=== PATIENT | female | born 1975 | race Caucasian/White ===

== ENCOUNTER 2018-10-13 11:40 | Observation (INO) ==
--- NOTE | 2018-10-13 11:52 | Emergency Department Note ---
ED Disposition Clinical Impression: Chest pain syndrome Disposition: Admitted as Observation Condition on Discharge: Fair Referrals: Provider,Referral, [Primary Care Provider] - Time of Disposition: 17:19 - Critical Care Critical Care Time: No Attestation: On , the high probability of a clinically significant, sudden or life threatening deterioration of the following system(s) required my full and direct attention, intervention and personal management. The time I documented below is in addition to time spent performing reported procedures but includes the following listed in this critical care notation. Medical Decision Making - Medical Records Medical records reviewed: Yes: I reviewed the patient's medical records. - Fredi Inquiry Pt receiving controlled substance: No Fredi was queried for this patient: No Vital Signs: 10/13/18 11:40 10/13/18 12:42 10/13/18 13:20 Temperature 97.9 F Temperature Source Oral Pulse Rate 80 Pulse Rate [Left Radial] 90 82 Respiratory Rate 15 16 Blood Pressure 169/74 H Blood Pressure [Right Arm] 169/91 H 157/98 H Blood Pressure Mean [Right Arm] 117 117 Blood Pressure Source [Right Arm] Automatic Cuff Automatic Cuff Blood Pressure Position [Right Arm] Sitting Sitting 02 Sat by Pulse Oximetry 97 98 Oxygen Delivery Method Room Air 10/13/18 13:23 10/13/18 14:00 10/13/18 14:30 Temperature Temperature Source Pulse Rate Pulse Rate [Left Radial] 96 H 93 H 87 Respiratory Rate 15 Blood Pressure Blood Pressure [Right Arm] 182/92 H 160/95 H 156/83 H Blood Pressure Mean [Right Arm] 122 116 107 Blood Pressure Source [Right Arm] Blood Pressure Position [Right Arm] Sitting 02 Sat by Pulse Oximetry 98 96 Oxygen Delivery Method Room Air 10/13/18 15:00 10/13/18 15:30 10/13/18 16:00 Temperature Temperature Source Pulse Rate Pulse Rate [Left Radial] 97 H 95 H 94 H Respiratory Rate Blood Pressure Blood Pressure [Right Arm] 144/76 H 127/91 H 131/99 H Blood Pressure Mean [Right Arm] 98 103 109 Blood Pressure Source [Right Arm] Blood Pressure Position [Right Arm] 02 Sat by Pulse Oximetry 96 95 96 Oxygen Delivery Method Room Air 10/13/18 16:30 Temperature Temperature Source Pulse Rate Pulse Rate [Left Radial] 94 H Respiratory Rate Blood Pressure Blood Pressure [Right Arm] 129/84 Blood Pressure Mean [Right Arm] 99 Blood Pressure Source [Right Arm] Blood Pressure Position [Right Arm] 02 Sat by Pulse Oximetry Oxygen Delivery Method - Lab Data Lab results reviewed: Yes: I reviewed the patient's lab results. Lab Results 10/13/18 12:12: WBC 6.5, RBC 4.89, Hgb 13.1, Hct 41.2, MCV 84.4, MCH 26.8 L, MCHC 31.8, RDW 14.7, Plt Count 231, MPV 7.6, Neut % (Auto) 72.0, Lymph % (Auto) 21.2, [place] % (Auto) 4.7, Eos % (Auto) 1.8, Baso % (Auto) 0.4, Neut # (Auto) 4.7, Lymph # (Auto) 1.4, [place] # (Auto) 0.3, Eos # (Auto) 0.1, Baso # (Auto) 0.0 10/13/18 12:12: D-Dimer < 100 10/13/18 12:12: Sodium 141, Potassium 4.1, Chloride 104, Carbon Dioxide 29, A nion Gap 12.1, BUN 10, Creatinine 0.89, Estimated Creat Clear 67, Estimated GFR 69, Est GFR ( Amer) 83, Glucose 124 H, Calcium 9.1, Total Bilirubin 0.4, AST 17, ALT 33, Alkaline Phosphatase 97, Troponin I < 0.02, Total Protein 7.8, Albumin 3.4, Globulin 4.4 H, Albumin/Globulin Ratio 0.8 L 10/13/18 12:12: B-Natriuretic Peptide 16 10/13/18 12:12: ESR 42 H 10/13/18 12:12: C-Reactive Protein 2.2 H 10/13/18 14:55: Troponin I < 0.02 Result diagrams: 10/13/18 12:12 10/13/18 12:12 Orders (Tests/Meds): ED MEDICATIONS Generic Name Dose Route Start Last Admin Trade Name Freq PRN Reason Stop Dose Admin Carvedilol 12.5 mg 10/13/18 21:00 Coreg 12.5mg Tablet PO 11/12/18 20:59 BID VIVIEN Nitroglycerin/Dextrose 250 mls @ 3 mls/hr 10/13/18 12:00 10/13/18 15:55 Nitroglycerin 50mg/250ml D5w IV 11/12/18 11:59 20 mcg/min .Q24H VIVIEN 6 mls/hr Titration Protocol 10 MCG/MIN Discontinued Medications Generic Name Dose Route Start Last Admin Trade Name Malcom PRN Reason Stop Dose Admin Hydralazine HCl 10 mg 10/13/18 15:49 10/13/18 16:07 Apresoline 20mg/Ml 1ml Vial IV 10/13/18 15:50 Not Given ONCE ONE Metoprolol Tartrate 5 mg 10/13/18 15:55 10/13/18 16:22 Metoprolol Tartrate 5mg/5ml Vial IV 10/13/18 15:56 Not Given ONCE ONE Morphine Sulfate 2 mg 10/13/18 12:44 10/13/18 12:56 Morphine 2mg/Ml Syringe IV 10/13/18 12:45 2 mg ONCE ONE Administration Morphine Sulfate 4 mg 10/13/18 14:00 10/13/18 14:38 Morphine 4mg/Ml Syringe IV 10/13/18 14:01 4 mg ONCE ONE Administration Morphine Sulfate 4 mg 10/13/18 15:55 10/13/18 16:13 Morphine 4mg/Ml Syringe IV 10/13/18 15:56 4 mg ONCE ONE Administration Promethazine HCl 12.5 mg 10/13/18 14:36 10/13/18 14:38 Phenergan 25mg/Ml 1ml Vial IV 10/13/18 14:37 12.5 mg ONCE ONE Administration Sodium Chloride 25 ml 10/13/18 14:36 10/13/18 14:38 Sod Chlor 0.9% 25ml Bag IV 10/13/18 14:37 25 ml ONCE ONE Administration ORDERS Category Date Time Status EKG Request [ECG Request by /Ezequiel] Stat Y 10/13/18 13:32 Stop Req EKG Request [ECG Request by /Ezequiel] Stat Y 10/13/18 14:00 Ordered - Physician Consults Physician Consulted: dodie Time: 17:17 Reason -: Pt condition, Cardiology Eval/Care Comment/Response: will consult, tonight rec blood pressure reduction - MICHELLE Score for Non-Stemi Age of Patient: 40-49 years old Heart Rate: 90-109 bpm Systolic Blood Pressure: 120-139 mmhg Serum Creatinine: 0.80-1.19 mg/dl CHF [place] Class: I-No CHF Other Risk Factors: None Non-Stemi Risk Score: 81 General Adult HPI - General Stated complaint: chest pain Time Seen by Provider: 10/13/18 11:49 Source of Information: Patient Limitations: No Limitations - History of Present Illness HPI narrative: nausea last night, onset of SSCP radiating to left shoulder today.VTE was ruled out by CT at [facility]... No left heart cath but hospitalized x 4 days within past week there. No stents - Related Data Home Medications Medication Instructions Recorded Confirmed Canagliflozin [Invokana] 1 dose * DIRECTED 10/13/18 10/13/18 Carvedilol [Carvedilol 12.5mg Tab] 1 tab PO BID 10/13/18 10/13/18 Furosemide [Furosemide 40MG tAB] 1 tab PO DIRECTED 10/13/18 10/13/18 Omeprazole [Omeprazole 40mg 1 tab PO DAILY 10/13/18 10/13/18 Capsule] Sertraline HCl [Zoloft 50mg tablet] 1 dose PO DAILY 10/13/18 10/13/18 Spironolactone 1 tab PO DAILY 10/13/18 10/13/18 Spironolactone 1 tab PO DAILY 10/13/18 10/13/18 Allergies Allergy/AdvReac Type Severity Reaction Status Date / Time ketorolac [From TORADOL] Allergy Unknown UNKNOWN Verified 10/13/18 12:20 metoclopramide [From REGLAN] Allergy Unknown UNKNOWN Verified 10/13/18 12:20 Sulfa (Sulfonamide Allergy Unknown REGLAN Verified 10/13/18 12:20 Antibiotics) [SULFA (SULFONAMIDE ANTIBIOTICS)] tramadol [TRAMADOL] Allergy Unknown UNKNOWN Verified 10/13/18 12:20 [facility] History - Hepatitis A Screen Attestation statement:: This patient has been screened for Hepatitis A risk factors. I have reviewed the patient's past medical history: Yes ROS Obtained: Yes All systems reviewed & no additional complaints - Constitutional Constitutional: Denies chills, Denies fever(s) - Cardiovascular Cardiovascular: Reports chest pain, Reports chest pain at rest, Reports dyspnea - Respiratory Respiratory: Yes dyspnea, Yes dyspnea on exertion - Gastrointestinal Gastrointestingal: Reports: system reviewed and no additional complaints, except as docu. Denies: abdominal pain - Musculoskeletal Musculoskeletal: Denies joint swelling, Denies limited range of motion - Integumentary/Breasts Skin/Breast: Denies rash, Denies skin pain - Neurologic Neurologic: Denies dizziness, Denies tremor(s) - Hematologic/Lymphatic Henatologic/Lymphatic: Denies easy bleeding, Denies easy bruising Physical Exam - General General appearance: alert, in no apparent distress - Head Head exam: atraumatic, normocephalic, normal inspection - Eye Eye exam: Present: normal appearance, PERRL, EOMI - ENT ENT exam: Present: normal exam, normal oropharynx, mucous membranes moist, TM's normal bilaterally, normal external ear exam - Neck Neck exam: Present: normal inspection, full ROM, trachea midline. Absent: meningismus, lymphadenopathy - Chest Chest inspection: Present: normal inspection, symmetric chest wall rise. Absent: tenderness - Respiratory Respiratory exam: Present: normal lung sounds bilaterally. Absent: respiratory distress - Cardiovascular Cardiovascular exam: Present: regular rate - Abdominal Exam Abdominal exam: Present: soft, normal bowel sounds. Absent: distention, tenderness, guarding - Extremities Exam Extremities exam: Present: normal inspection, full ROM, normal capillary refill. Absent: calf tenderness - Neurological Exam Neurological exam: Present: alert, oriented X3 - Psychiatric Psychiatric exam: Present: normal affect, normal mood - Skin Skin exam: Present: warm, dry, intact, normal color
[2018-10-13 12:22] LABS: Basophils % 0.4 % (0.1-2.0); Eosinophils # 0.1 K/mm3 (0.0-0.4); Eosinophils % 1.8 % (0.1-12.0); Hematocrit 41.2 % (37.0-47.0); Hemoglobin 13.1 g/dL (12.2-16.2); Lymphocytes # 1.4 K/mm3 (0.7-4.5); Lymphocytes % 21.2 % (10-50); Mean Corpuscular HGB Conc 31.8 g/dL (31.8-35.4); Mean Corpuscular Volume 84.4 fl (81-99); Mean Platelet Volume 7.6 fl (7.4-10.4); Monocytes # 0.3 K/mm3 (0.1-1.0); Monocytes % 4.7 % (1.7-9.3); Neutrophils # 4.7 K/mm3 (1.8-7.8); Platelet Count 231 K/mm3 (142-424); Red Blood Count 4.89 M/mm3 (4.20-5.40); Red Cell Distribution Width 14.7 % (11.5-17.5); White Blood Count 6.5 K/mm3 (4.8-10.8)
[2018-10-13 12:34] LABS: Alanine Aminotransferase 33 U/L (12-78); Albumin Level 3.4 gm/dL (3.4-5.0); Albumin/Globulin Ratio 0.8 (1.1-1.8); Alkaline Phosphatase 97 U/L (46-116); Anion Gap 12.1 mEq/L (5-15); Aspartate Amino Transferase 17 U/L (15-37); Bilirubin,Total 0.4 mg/dL (0.2-1.0); Blood Urea Nitrogen 10 mg/dL (7-18); Calcium 9.1 mg/dL (8.5-10.1); Carbon Dioxide 29 mmol/L (21.0-32.0); Chloride 104 mmol/L (98-107); Globulin 4.4 gm/dl (1.3-3.2); Glucose 124 mg/dL (74-106); Sodium 141 mmol/L (136-145); Total Protein,Serum 7.8 gm/dL (6.4-8.2)
--- NOTE | 2018-10-13 20:22 | History & Physical Report ---
*Admission Date: 10/13/18 *Chief complaint: chest pain *History of present illness: this pt presented to the ed with chest pain usea last night, onset of SSCP radiating to left shoulder today.VTE was ruled out by CT at [facility]... No left heart cath but hospitalized x 4 days within past week there. No stents pt was admitted for eval [facility] History I have reviewed the patient's past medical history: Yes Medical History: Reports:: Diabetes Mellitus Type 2, Hyperlipidemia, Hypertension Denies:: Cancer, Diabetes Mellitus Type 1, MRSA *Have you ever received a pneumonia vaccine?: Yes *Have you received a flu vaccine this season?: No Other Medical History: Reports: Liver Disease (pancreatitis) Other Surgeries: Yes: Cardiac Catheterization, Cholecystectomy, Colonoscopy, EGD, Hernia Repair (umbilical) Amputation: No Fractures: No - *Social History Educational Level: Attended High School Smoking Status: Former smoker Tobacco Type: cigarettes # Packs/Day (cigarettes): 1 Smoking End Date: 1995 Alcohol Intake: current Alcohol Intake Frequency:: holidays/special occasions only *Occupational Status:: disabled Housing: apartment Household Members: spouse *Travel in the last 8 weeks: None - Psychiatric History Expresses thoughts of harming self/others: None Suicide Plan Description: No Plan Family Hx:: Cancer, Coronary Artery Disease, Diabetes, Heart Attack, Hyperlipidemia, Hypertension Review of Systems - Review of Systems Review of systems:: pertinent systems reviewed and negative unless documented below - Constitutional Denies fever(s), Denies headache(s) - Eyes Denies change in vision - ENT Denies sore throat - *Cardiovascular Reports chest pain at rest, Reports chest pain with activity - *Respiratory Denies cough - *Gastrointestinal Denies abdominal pain - *Genitourinary Denies abnormal vaginal bleeding - *Musculoskeletal Denies joint pain - Integumentary/Breasts Denies rash - *Neurologic Denies dizziness, Denies tremor(s) - Psychiatric Denies anxiety Meds Home Medications Medication Instructions Recorded Confirmed Type Atorvastatin Calcium [Atorvastatin 40 mg PO HS 10/13/18 10/13/18 History 40mg Tab] Canagliflozin [Invokana] 100 mg PO DAILY 10/13/18 10/13/18 History Carvedilol [Carvedilol 12.5mg Tab] 12.5 mg PO BID 10/13/18 10/14/18 History Clopidogrel Bisulfate [Plavix 75mg 75 mg PO DAILY 10/13/18 10/13/18 History Tab] Furosemide [Furosemide 40MG tAB] 40 mg PO DAILY 10/13/18 10/14/18 History Gabapentin 800 mg PO QID 10/13/18 10/13/18 History Hydrocodone/Acetaminophen 1 each PO TID 10/13/18 10/13/18 History [Hydrocodone-Acetamin 5-325 mg] Isosorbide Mononitrate [Imdur 30mg 30 mg PO DAILY 10/13/18 10/13/18 History ER tablet] Losartan Potassium 100 mg PO DAILY 10/13/18 10/13/18 History Omeprazole [Omeprazole 40mg 40 mg PO BID 10/13/18 10/13/18 History Capsule] Sertraline HCl [Zoloft 50mg tablet] 50 mg PO DAILY 10/13/18 10/14/18 History Spironolactone 25 mg PO DAILY 10/13/18 10/13/18 History Trazodone HCl 150 mg PO HS 10/13/18 10/13/18 History clonazePAM [Clonazepam] 0.5 mg PO BID 10/13/18 10/13/18 History Allergies Allergy/AdvReac Type Severity Reaction Status Date / Time ketorolac [From TORADOL] Allergy Unknown UNKNOWN Verified 10/13/18 12:20 metoclopramide [From REGLAN] Allergy Unknown UNKNOWN Verified 10/13/18 12:20 Sulfa (Sulfonamide Allergy Unknown REGLAN Verified 10/13/18 12:20 Antibiotics) [SULFA (SULFONAMIDE ANTIBIOTICS)] tramadol [TRAMADOL] Allergy Unknown UNKNOWN Verified 10/13/18 12:20 Exam Vital signs and Labs for Last 24 Hours: Temp Pulse Resp BP Pulse Ox 97.9 F 85 22 165/91 H 96 10/13/18 18:26 10/13/18 18:30 10/13/18 18:26 10/13/18 18:26 10/13/18 18:26 Laboratory Results - last 24 hr 10/13/18 12:12: WBC 6.5, RBC 4.89, Hgb 13.1, Hct 41.2, MCV 84.4, MCH 26.8 L, MCHC 31.8, RDW 14.7, Plt Count 231, MPV 7.6, Neut % (Auto) 72.0, Lymph % (Auto) 21.2, [place] % (Auto) 4.7, Eos % (Auto) 1.8, Baso % (Auto) 0.4, Neut # (Auto) 4.7, Lymph # (Auto) 1.4, [place] # (Auto) 0.3, Eos # (Auto) 0.1, Baso # (Auto) 0.0 10/13/18 12:12: D-Dimer < 100 10/13/18 12:12: Sodium 141, Potassium 4.1, Chloride 104, Carbon Dioxide 29, Anion Gap 12.1, BUN 10, Creatinine 0.89, Estimated Creat Clear 67, Estimated GFR 69, Est GFR ( Amer) 83, Glucose 124 H, Calcium 9.1, Total Bilirubin 0.4, AST 17, ALT 33, Alkaline Phosphatase 97, Troponin I < 0.02, Total Protein 7.8, Albumin 3.4, Globulin 4.4 H, Albumin/Globulin Ratio 0.8 L 10/13/18 12:12: B-Natriuretic Peptide 16 10/13/18 12:12: ESR 42 H 10/13/18 12:12: C-Reactive Protein 2.2 H 10/13/18 14:55: Troponin I < 0.02 I & O for Last 24 hours: Intake & Output 10/11/18 10/12/18 10/13/18 10/14/18 11:59 11:59 11:59 11:59 Intake Total Balance Weight 255 lb 328 lb 12.8 oz - Constitutional no acute distress, obese - *Routine HEENT Exam Head: Present: normocephalic Eye: Present: EOMI, PERRL. Absent: conjunctival icterus ENT: Present: mucous membranes dry - *Routine Neck Exam Absent: JVD - *Routine Respiratory Exam Present: decreased breath sounds - *Routine Cardiovascular Exam Present: RRR. Absent: murmur - *Routine Abdominal Exam Present: soft - *Routine Extremities Exam Absent: calf tenderness - *Routine Skin Exam Present: intact - *Routine Neurological Exam Present: alert, oriented X3, CN II-XII intact - Routine Psychiatric Exam Present: normal affect Assessment and Plan (1) Chest pain Current visit: Yes Status: Acute Qualifiers: Chest pain type: precordial pain Qualified Code(s): R07.2 - Precordial pain Category: Medical Code(s): R07.9 - Chest pain, unspecified (2) Obesity Current visit: Yes Status: Acute Qualifiers: Obesity type: due to excess calories Obesity classification: adult class 3 (BMI >= 40) Serious obesity comorbidity presence: with serious comorbidity Body mass index: BMI 50.0-59.9 Qualified Code(s): E66.01 - Morbid (severe) obesity due to excess calories; Z68.43 - Body mass index (BMI) 50-59.9, adult Category: Medical Code(s): E66.9 - Obesity, unspecified (3) Coronary artery disease Current visit: Yes Status: Acute Qualifiers: Coronary Disease-Associated Artery/Lesion type: unspecified vessel or lesion type [place] vs. transplanted heart: [place] heart Associated angina: with unspecified angina Qualified Code(s): I25.119 - Atherosclerotic heart disease of [place] coronary artery with unspecified angina pectoris Category: Medical Code(s): I25.10 - Atherosclerotic heart disease of [place] coronary artery without angina pectoris (4) Diabetes mellitus type 2 in obese Current visit: Yes Status: Acute Category: Medical Code(s): E11.69 - Type 2 diabetes mellitus with other specified complication; E66.9 - Obesity, unspecified (5) Hyperlipidemia associated with type 2 diabetes mellitus Current visit: Yes Status: Acute Category: Medical Code(s): E11.69 - Type 2 diabetes mellitus with other specified complication; E78.5 - Hyperlipidemia, unspecified (6) Hypertension Current visit: Yes Status: Acute Category: Medical Code(s): I10 - Essential (primary) hypertension
[2018-10-14 04:37] LABS: Anion Gap 10.8 mEq/L (5-15); Calcium 8.8 mg/dL (8.5-10.1)
[2018-10-14 04:53] LABS: Chol/HDL Ratio 5.3 (1-3.5)
[2018-10-14 05:01] LABS: Basophils % 0.4 % (0.1-2.0); Eosinophils # 0.1 K/mm3 (0.0-0.4); Eosinophils % 1.2 % (0.1-12.0); Hematocrit 37.6 % (37.0-47.0); Hemoglobin 11.4 g/dL (12.2-16.2); Lymphocytes # 2.1 K/mm3 (0.7-4.5); Lymphocytes % 29.4 % (10-50); Mean Corpuscular HGB Conc 30.4 g/dL (31.8-35.4); Mean Corpuscular Volume 85.2 fl (81-99); Mean Platelet Volume 7.8 fl (7.4-10.4); Monocytes # 0.4 K/mm3 (0.1-1.0); Monocytes % 5.2 % (1.7-9.3); Neutrophils # 4.4 K/mm3 (1.8-7.8); Neutrophils % 63.7 % (37.0-80.0); Platelet Count 229 K/mm3 (142-424); Red Blood Count 4.41 M/mm3 (4.20-5.40); Red Cell Distribution Width 14.7 % (11.5-17.5)
--- NOTE | 2018-10-14 07:35 | Pharmacy Consult Notes ---
[facility] Pharm[facility] VTE Monitoring - Patient Demographics Admission date: 10/13/18 Report Date: 10/14/18 Time: 07:34 Allergies/Adverse Reactions: Patient Allergies ketorolac [From TORADOL] Allergy (Unknown, Verified 10/13/18 12:20) UNKNOWN metoclopramide [From REGLAN] Allergy (Unknown, Verified 10/13/18 12:20) UNKNOWN Sulfa (Sulfonamide Antibiotics) [SULFA (SULFONAMIDE ANTIBIOTICS)] Allergy (Unknown, Verified 10/13/18 12:20) REGLAN tramadol [TRAMADOL] Allergy (Unknown, Verified 10/13/18 12:20) UNKNOWN Height: 1.7 m Weight: 149.827 kg Patient Problems: Current Active Problems (Updated 10/14/18 @ 04:30 by Lewis Gates MD) Chest pain syndrome (Acute) Chest pain (Acute) Obesity (Acute) - VTE Risk Labs: VTE Related Lab Results Hgb 11.4 g/dL (12.2-16.2) L D 10/14/18 04:00 Hct 37.6 % (37.0-47.0) 10/14/18 04:00 Plt Count 229 K/mm3 (142-424) 10/14/18 04:00 BUN 14 mg/dL (7-18) D 10/14/18 04:00 Creatinine 0.89 mg/dL (0.55-1.02) 10/14/18 04:00 Estimated Creat Clear 78 mL/min (50-200) 10/14/18 04:00 VTE Score: 3 VTE Risk Level: Low Risk - Prophylaxis VTE Prophylaxis Ordered?: Yes Types of VTE Prophylaxis: TEDS Knee High Location of Applied Device: Bilateral Lower Extremeties - VTE Diagnosis Confirmed Treatment or plan recommended: Continue Current Treatment
--- NOTE | 2018-10-14 08:29 | Consult Report ---
History of Present Illness Consult date: 10/14/18 Requesting physician: Lewis Gates Consult reason: chest pain Chief complaint: chest pain Additional Medical History:: 1. Coronary artery disease A. History of cardiac catheterization, [facility], [place], [place], January 2018 with moderate coronary artery disease per patient. 2. History of Crohn's disease 3. Diabetes mellitus, type II 4. Family history of coronary artery disease in her father who was a smoker 5. History of CVA with left side affected 6. Obesity 7. Hypertension 8. Hyperlipidemia 9. History of pancreatitis History of present illness: 43-year-old white female with history as noted above presented to the emergency department for evaluation of abdominal and chest pain that started evening and has been constant since with associated vomiting. Patient was recently hospitalized at [facility] but states she cannot remember what they did or did not do during the hospital stay. Patient does relate moderate coronary artery disease by cardiac catheterization in [facility] in January of last year. She also relates a history of pancreatitis and Crohn's disease. Patient was admitted and placed on nitroglycerin drip for pain and hypertensive urgency. Blood pressure has significantly improved. Chest pain has not been affected by the nitroglycerin drip. Patient does have a signif icant headache. Cardiac troponins have returned normal. EKG is sinus with biatrial enlargement and ST T abnormalities inferolaterally concerning for ischemia. Previous EKGs reviewed with similar ST segment abnormalities but more exaggerated on this admissions EKG. Cardiology consulted for evaluation recommendations. [facility] History Medical History: Reports:: Diabetes Mellitus Type 2, Hyperlipidemia, Hypertension Denies:: Cancer, Diabetes Mellitus Type 1, MRSA *Have you ever received a pneumonia vaccine?: Yes *Have you received a flu vaccine this season?: No Other Medical History: Reports: Liver Disease (pancreatitis) Other Surgeries: Yes: Cardiac Catheterization, Cholecystectomy, Colonoscopy, EGD, Hernia Repair (umbilical) Amputation: No Fractures: No - *Social History Educational Level: Attended High School Smoking Status: Former smoker Tobacco Type: cigarettes # Packs/Day (cigarettes): 1 Smoking End Date: 1995 Alcohol Intake: current Alcohol Intake Frequency:: holidays/special occasions only *Occupational Status:: disabled Housing: apartment Household Members: spouse *Travel in the last 8 weeks: None - Psychiatric History Expresses thoughts of harming self/others: None Suicide Plan Description: No Plan Family Hx:: Cancer, Coronary Artery Disease, Diabetes, Heart Attack, Hyperlipidemia, Hypertension Meds Home Medications Medication Instructions Recorded Confirmed Type Atorvastatin Calcium [Atorvastatin 40 mg PO HS 10/13/18 10/13/18 History 40mg Tab] Canagliflozin [Invokana] 100 mg PO DAILY 10/13/18 10/13/18 History Carvedilol [Carvedilol 12.5mg Tab] 12.5 mg PO BID 10/13/18 10/14/18 History Clopidogrel Bisulfate [Plavix 75mg 75 mg PO DAILY 10/13/18 10/13/18 History Tab] Furosemide [Furosemide 40MG tAB] 40 mg PO DAILY 10/13/18 10/14/18 History Gabapentin 800 mg PO QID 10/13/18 10/13/18 History Hydrocodone/Acetaminophen 1 each PO TID 10/13/18 10/13/18 History [Hydrocodone-Acetamin 5-325 mg] Isosorbide Mononitrate [Imdur 30mg 30 mg PO DAILY 10/13/18 10/13/18 History ER tablet] Losartan Potassium 100 mg PO DAILY 10/13/18 10/13/18 History Omeprazole [Omeprazole 40mg 40 mg PO BID 10/13/18 10/13/18 History Capsule] Sertraline HCl [Zoloft 50mg tablet] 50 mg PO DAILY 10/13/18 10/14/18 History Spironolactone 25 mg PO DAILY 10/13/18 10/13/18 History Trazodone HCl 150 mg PO HS 10/13/18 10/13/18 History clonazePAM [Clonazepam] 0.5 mg PO BID 10/13/18 10/13/18 History Allergies Allergy/AdvReac Type Severity Reaction Status Date / Time ketorolac [From TORADOL] Allergy Unknown UNKNOWN Verified 10/13/18 12:20 metoclopramide [From REGLAN] Allergy Unknown UNKNOWN Verified 10/13/18 12:20 Sulfa (Sulfonamide Allergy Unknown REGLAN Verified 10/13/18 12:20 Antibiotics) [SULFA (SULFONAMIDE ANTIBIOTICS)] tramadol [TRAMADOL] Allergy Unknown UNKNOWN Verified 10/13/18 12:20 Review of Systems - *Cardiovascular Reports chest pain, Denies shortness of breath - *Respiratory Denies cough, Denies shortness of breath - *Gastrointestinal Reports abdominal pain, Reports vomiting - *Genitourinary Denies blood in urine - *Musculoskeletal Reports joint pain, Reports back pain - *Neurologic Denies dizziness, Denies headache(s), Denies tremor(s) Exam Vital signs and Labs for Last 24 Hours: Temp Pulse Resp BP Pulse Ox 97.7 F 79 12 122/72 94 L 10/14/18 04:00 10/14/18 06:00 10/14/18 06:00 10/14/18 06:00 10/14/18 06:00 Laboratory Results - last 24 hr 10/13/18 12:12: WBC 6.5, RBC 4.89, Hgb 13.1, Hct 41.2, MCV 84.4, MCH 26.8 L, MCHC 31.8, RDW 14.7, Plt Count 231, MPV 7.6, Neut % (Auto) 72.0, Lymph % (Auto) 21.2, [place] % (Auto) 4.7, Eos % (Auto) 1.8, Baso % (Auto) 0.4, Neut # (Auto) 4.7, Lymph # (Auto) 1.4, [place] # (Auto) 0.3, Eos # (Auto) 0.1, Baso # (Auto) 0.0 10/13/18 12:12: D-Dimer < 100 10/13/18 12:12: Sodium 141, Potassium 4.1, Chloride 104, Carbon Dioxide 29, Anion Gap 12.1, BUN 10, Creatinine 0.89, Estimated Creat Clear 67, Estimated GFR 69, Est GFR ( Amer) 83, Glucose 124 H, Calcium 9.1, Total Bilirubin 0.4, AST 17, ALT 33, Alkaline Phosphatase 97, Troponin I < 0.02, Total Protein 7.8, Albumin 3.4, Globulin 4.4 H, Albumin/Globulin Ratio 0.8 L 10/13/18 12:12: B-Natriuretic Peptide 16 10/13/18 12:12: ESR 42 H 10/13/18 12:12: C-Reactive Protein 2.2 H 10/13/18 14:55: Troponin I < 0.02 10/13/18 20:16: POC Glucose 155 H 10/13/18 20:17: Troponin I < 0.02 10/13/18 23:25: Troponin I < 0.02 10/14/18 04:00: WBC 7.0, RBC 4.41, Hgb 11.4 L D, Hct 37.6, MCV 85.2, MCH 25.9 L, MCHC 30.4 L, RDW 14.7, Plt Count 229, MPV 7.8, Neut % (Auto) 63.7, Lymph % (Auto) 29.4, [place] % (Auto) 5.2, Eos % (Auto) 1.2, Baso % (Auto) 0.4, Neut # (Auto) 4.4, Lymph # (Auto) 2.1, [place] # (Auto) 0.4, Eos # (Auto) 0.1, Baso # (Auto) 0.0 10/14/18 04:00: Sodium 140, Potassium 3.8, Chloride 104, Carbon Dioxide 29, Anion Gap 10.8, BUN 14 D, Creatinine 0.89, Estimated Creat Clear 78, Estimated GFR 69, Est GFR ( Amer) 83, Glucose 119 H, Calcium 8.8, Triglycerides 105, Cholesterol 170, LDL Cholesterol 117, VLDL Cholesterol 21, HDL Cholesterol 32, Cholesterol/HDL Ratio 5.3 H 10/14/18 06:08: POC Glucose 120 H I & O for Last 24 hours: Intake & Output 10/11/18 10/12/18 10/13/18 10/14/18 11:59 11:59 11:59 11:59 Intake Total 485 / 485 Balance 485 / 485 Weight 255 lb 330 lb 5 oz - *Routine HEENT Exam Head: Present: normocephalic Eye: Present: EOMI, PERRL ENT: Present: mucous membranes moist - *Routine Neck Exam Present: supple. Absent: JVD, carotid bruit - *Routine Respiratory Exam Present: CTA bilaterally. Absent: accessory muscle use, rales, rhonchi, wheezes - *Routine Cardiovascular Exam Present: RRR. Absent: murmur, gallop, rubs - *Routine Abdominal Exam Present: soft, tenderness. Absent: distended, guarding - *Routine Extremities Exam Absent: edema, calf tenderness - *Routine Neurological Exam Present: alert, oriented X3, moving all extremities Assessment and Plan (1) Chest pain Current visit: Yes Status: Acute Qualifiers: Chest pain type: precordial pain Qualified Code(s): R07.2 - Precordial pain Category: Medical Code(s): R07.9 - Chest pain, unspecified (2) Obesity Current visit: Yes Status: Acute Qualifiers: Obesity type: due to excess calories Obesity classification: adult class 3 (BMI >= 40) Serious obesity comorbidity presence: with serious comorbidity Body mass index: BMI 50.0-59.9 Qualified Code(s): E66.01 - Morbid (severe) obesity due to excess calories; Z68.43 - Body mass index (BMI) 50-59.9, adult Category: Medical Code(s): E66.9 - Obesity, unspecified (3) Coronary artery disease Current visit: Yes Status: Acute Qualifiers: Coronary Disease-Associated Artery/Lesion type: unspecified vessel or lesion type [place] vs. transplanted heart: [place] heart Associated angina: with unspecified angina Qualified Code(s): I25.119 - Atherosclerotic heart disease of [place] coronary artery with unspecified angina pectoris Category: Medical Code(s): I25.10 - Atherosclerotic heart disease of [place] coronary artery without angina pectoris (4) Diabetes mellitus type 2 in obese Current visit: Yes Status: Acute Category: Medical Code(s): E11.69 - Type 2 diabetes mellitus with other specified complication; E66.9 - Obesity, unspecified (5) Hyperlipidemia associated with type 2 diabetes mellitus Current visit: Yes Status: Acute Category: Medical Code(s): E11.69 - Type 2 diabetes mellitus with other specified complication; E78.5 - Hyperlipidemia, unspecified (6) Hypertension Current visit: Yes Status: Acute Category: Medical Code(s): I10 - [place] [facility] (primary) hypertension (7) Abnormal EKG Current visit: Yes Status: Acute Category: Medical Code(s): R94.31 - Abnormal electrocardiogram [ECG] [EKG] - Assessment and plan all Dx Assessment and Plan for all problems:: 1. Chest pain greater than 24 hours duration with normal troponins. Patient does have an abnormal EKG with known moderate coronary artery disease by cardiac catheterization January 2018. We will try to obtain records from both [facility] from January 2018 and [facility] last month. Patient does not wish to have a cardiac catheterization at this time. She states her chest pain is reminiscent of her Crohn's and/or pancreatitis exacerbation episodes. 2. Since the nitroglycerin is not helping with her chest pain will discontinue it due to her severe headache. 3. Will obtain an echocardiogram to evaluate left ventricular size and function 4. Continue carvedilol, Lasix and Spironolactone. Add losartan 50 mg daily in this diabetic, hypertensive patient. 5. Further recommendations to follow pending above results and review of records.
--- NOTE | 2018-10-14 15:23 | Progress Note ---
Internal Medicine - PN: Subj *Date: 10/14/18 *Time: 20:40 Interval history: doing better - will restart meds and see how pt does with echo - no other c/o Exam Vital signs and Labs for Last 24 Hours: Temp Pulse Resp BP Pulse Ox 98.4 F 99 H 16 121/76 97 10/14/18 11:38 10/14/18 11:38 10/14/18 11:38 10/14/18 11:38 10/14/18 11:38 Laboratory Results - last 24 hr 10/13/18 14:55: Troponin I < 0.02 10/13/18 20:16: POC Glucose 155 H 10/13/18 20:17: Troponin I < 0.02 10/13/18 23:25: Troponin I < 0.02 10/14/18 04:00: WBC 7.0, RBC 4.41, Hgb 11.4 L D, Hct 37.6, MCV 85.2, MCH 25.9 L, MCHC 30.4 L, RDW 14.7, Plt Count 229, MPV 7.8, Neut % (Auto) 63.7, Lymph % (Auto) 29.4, [place] % (Auto) 5.2, Eos % (Auto) 1.2, Baso % (Auto) 0.4, Neut # (Auto) 4.4, Lymph # (Auto) 2.1, [place] # (Auto) 0.4, Eos # (Auto) 0.1, Baso # (Auto) 0.0 10/14/18 04:00: Sodium 140, Potassium 3.8, Chloride 104, Carbon Dioxide 29, Anion Gap 10.8, BUN 14 D, Creatinine 0.89, Estimated Creat Clear 78, Estimated GFR 69, Est GFR ( Amer) 83, Glucose 119 H, Calcium 8.8, Triglycerides 105, Cholesterol 170, LDL Cholesterol 117, VLDL Cholesterol 21, HDL Cholesterol 32, Cholesterol/HDL Ratio 5.3 H 10/14/18 04:00: Lipase 79 10/14/18 06:08: POC Glucose 120 H I & O for Last 24 hours: Intake & Output 10/12/18 10/13/18 10/14/18 10/15/18 11:59 11:59 11:59 11:59 Intake Total 485 / 485 540 / 540 Balance 485 / 485 540 / 540 Weight 255 lb 330 lb 5 oz 330 lb 5 oz - Constitutional no acute distress, obese - *Routine HEENT Exam Head: Present: normocephalic Eye: Present: EOMI, PERRL ENT: Present: mucous membranes dry - *Routine Neck Exam Present: supple - *Routine Respiratory Exam Present: CTA bilaterally - *Routine Cardiovascular Exam Present: RRR, murmur - *Routine Abdominal Exam Present: soft - *Routine Extremities Exam Absent: calf tenderness - *Routine Skin Exam Present: intact - *Routine Neurological Exam Present: alert, CN II-XII intact - Routine Psychiatric Exam Present: normal affect Assessment and Plan (1) Chest pain Current visit: Yes Status: Acute Qualifiers: Chest pain type: precordial pain Qualified Code(s): R07.2 - Precordial pain Category: Medical Code(s): R07.9 - Chest pain, unspecified (2) Obesity Current visit: Yes Status: Acute Qualifiers: Obesity type: due to excess calories Obesity classification: adult class 3 (BMI >= 40) Serious obesity comorbidity presence: with serious comorbidity Body mass index: BMI 50.0-59.9 Qualified Code(s): E66.01 - Morbid (severe) obesity due to excess calories; Z68.43 - Body mass index (BMI) 50-59.9, adult Category: Medical Code(s): E66.9 - Obesity, unspecified (3) Coronary artery disease Current visit: Yes Status: Acute Qualifiers: Coronary Disease-Associated Artery/Lesion type: unspecified vessel or lesion type [place] vs. transplanted heart: [place] heart Associated angina: with unspecified angina Qualified Code(s): I25.119 - Atherosclerotic heart disease of [place] coronary artery with unspecified angina pectoris Category: Medical Code(s): I25.10 - Atherosclerotic heart disease of [place] coronary artery without angina pectoris (4) Diabetes mellitus type 2 in obese Current visit: Yes Status: Acute Category: Medical Code(s): E11.69 - Type 2 diabetes mellitus with other specified complication; E66.9 - Obesity, unspecified (5) Hyperlipidemia associated with type 2 diabetes mellitus Current visit: Yes Status: Acute Category: Medical Code(s): E11.69 - Type 2 diabetes mellitus with other specified complication; E78.5 - Hyperlipidemia, unspecified (6) Hypertension Current visit: Yes Status: Acute Category: Medical Code(s): I10 - Essential (primary) hypertension
--- NOTE | 2018-10-15 08:11 | Progress Note ---
Subjective Date: 10/15/18 Time: 08:09 Principal diagnosis: chest pain Interval history: 43-year-old white female in bed in no acute distress. States she is feeling better. No nausea, vomiting or diarrhea. Records from [facility] were reviewed showing mild to moderate coronary artery disease in January 2018. With normal troponins this admission and no acute changes to her EKG would not recommend any further work-up at this time. Records from were not received during this hospitalization. Exam Vital signs and Labs for Last 24 Hours: Temp Pulse Resp BP Pulse Ox 98.0 F 78 17 135/72 95 10/15/18 07:52 10/15/18 07:52 10/15/18 07:52 10/15/18 07:52 10/15/18 07:52 Laboratory Results - last 24 hr 10/14/18 04:00: Lipase 79 I & O for Last 24 hours: Intake & Output 10/12/18 10/13/18 10/14/18 10/15/18 11:59 11:59 11:59 11:59 Intake Total 485 / 485 2198 / 2198 Output Total 1350 / 1350 Balance 485 / 485 848 / 848 Weight 255 lb 330 lb 5 oz 333 lb 5 oz - *Routine HEENT Exam Head: Present: normocephalic Eye: Present: EOMI, PERRL ENT: Present: mucous membranes moist - *Routine Respiratory Exam Present: CTA bilaterally. Absent: accessory muscle use, rales, rhonchi, wheezes - *Routine Cardiovascular Exam Present: RRR. Absent: murmur, gallop, rubs - *Routine Neurological Exam Present: alert, oriented X3, moving all extremities Progress Note: A&P (1) Chest pain Status: Acute Current Visit: Yes (2) Obesity Status: Acute Current Visit: Yes (3) Coronary artery disease Status: Acute Current Visit: Yes (4) Diabetes mellitus type 2 in obese Status: Acute Current Visit: Yes (5) Hyperlipidemia associated with type 2 diabetes mellitus Status: Acute Current Visit: Yes (6) Hypertension Status: Acute Current Visit: Yes Assessment and Plan for All Diagnoses:: 1. Cardiac status stable. Okay for discharge from cardiology standpoint. 2. Continue cardiac meds per home medication list including Plavix 75 mg daily Coreg 12.5 mg twice daily Furosemide 40 mg daily Spironolactone 25 mg daily Atorvastatin 40 mg daily losartan 100 mg daily isosorbide mononitrate 30 mg daily 3. Follow-up in our office in 1 to 2 weeks
[2018-10-15 08:29] LABS: Basophils % 0.1 % (0.1-2.0); Eosinophils # 0.2 K/mm3 (0.0-0.4); Eosinophils % 2.8 % (0.1-12.0); Hematocrit 35.8 % (37.0-47.0); Hemoglobin 10.8 g/dL (12.2-16.2); Lymphocytes # 1.1 K/mm3 (0.7-4.5); Mean Corpuscular HGB Conc 30.1 g/dL (31.8-35.4); Mean Corpuscular Volume 85.9 fl (81-99); Mean Platelet Volume 9.1 fl (7.4-10.4); Monocytes # 0.6 K/mm3 (0.1-1.0); Monocytes % 10.2 % (1.7-9.3); Neutrophils # 3.6 K/mm3 (1.8-7.8); Neutrophils % 66.8 % (37.0-80.0); Platelet Count 191 K/mm3 (142-424); Red Blood Count 4.17 M/mm3 (4.20-5.40); Red Cell Distribution Width 14.8 % (11.5-17.5); White Blood Count 5.4 K/mm3 (4.8-10.8)
[2018-10-15 08:33] LABS: Anion Gap 14.7 mEq/L (5-15)
--- NOTE | 2018-10-15 09:24 | Discharge Summary ---
General - General Admission date:: 10/13/18 Discharge date: 10/15/18 HPI HPI: 43-year-old female patient resting in bed quietly this morning denies further chest pain, respirations easy even denies further complaints. Is agreeable to being discharged today with follow-up in 1 week with PCP. this pt presented to the ed with chest pain usea last night, onset of SSCP radiating to left shoulder today.VTE was ruled out by CT at [facility]... No left heart cath but hospitalized x 4 days within past week there. No stents pt was admitted for eval Hospital Course Hospital Course: 43-year-old female patient presented to the ED on 10/12 complaining of chest pain during the night patient also reports nausea and vomiting during chest pain episode. Chest pain was substernal and radiating to her left shoulder. She was recently admitted at [facility] for same complaint, while at [facility] she does not remember exactly what they did but no heart cath was performed she did stay inpatient for 4 days. She also does report a moderate coronary artery disease determined by cardiac catheterization in [facility] in January 2019. She also reports a history of pancreatitis and Crohn's disease. Patient was admitted to [facility] placed on nitro drip for pain and hypertensive emergency. Blood pressure did improve chest pain was not infected by the nitro drip. Patient did report a significant headache cardiac troponins have returned to normal, EKG is normal sinus rhythm, with bilateral enlargement of T waves and T wave abnormalities which are concerning for ischemia. Previous EKGs reveal the same cardiology was consulted for evaluation recommendations Records from [facility] were reviewed showing mild to moderate coronary artery disease in January 2018. With normal troponins this admission and no acute changes to her EKG would not recommend any further work-up at this time. Records from were not received during this hospitalization. Cardiology recommendations are as follows: 1. Cardiac status stable. Okay for discharge from cardiology standpoint. 2. Continue cardiac meds per home medication list including Plavix 75 mg daily Coreg 12.5 mg twice daily Furosemide 40 mg daily Spironolactone 25 mg daily Atorvastatin 40 mg daily losartan 100 mg daily isosorbide mononitrate 30 mg daily 3. Follow-up in our office in 1 to 2 weeks (Per Manuel Lutz) 10/13/2018 CXR: IMPRESSION: Negative chest, no acute finding Dictated By: Ernie Finn MD Patient will be discharged home today with follow-up in 1 week at PCP and 1 - 2 weeks in Cards Objective Vital signs: Temp Pulse Resp BP Pulse Ox 98.0 F 78 17 135/72 95 10/15/18 07:52 10/15/18 08:57 10/15/18 08:57 10/15/18 07:52 10/15/18 07:52 no acute distress, morbidly obese - *Routine HEENT Exam Head: Present: normocephalic. Absent: tenderness of temporal artery Eye: Present: EOMI, PERRL. Absent: conjunctival icterus ENT: Present: mucous membranes moist. Absent: sinus tenderness - *Routine Neck Exam Present: trachea midline. Absent: tracheal deviation - *Routine Respiratory Exam Present: decreased breath sounds, CTA bilaterally. Absent: accessory muscle use, respiratory distress - *Routine Cardiovascular Exam Present: RRR. Absent: tachycardia, JVD - *Routine Abdominal Exam Present: soft, normoactive bowel sounds. Absent: tenderness - *Routine Extremities Exam Present: pulses intact. Absent: tenderness - Routine Back/Spine/Pelvis Exam Back/Spine: Present: full ROM. Absent: CVA tenderness - *Routine Skin Exam Present: intact, warm. Absent: cyanosis, jaundice - *Routine Neurological Exam Present: alert, oriented X3, CN II-XII intact. Absent: tremors - Routine Psychiatric Exam Present: normal affect. Absent: anxious Results Labs on day of discharge: Labs from last 24 hours 10/15/18 10/15/18 10/14/18 05:40 05:40 04:00 WBC 5.4 RBC 4.17 L Hgb 10.8 L Hct 35.8 L MCV 85.9 MCH 25.9 L MCHC 30.1 L RDW 14.8 Plt Count 191 MPV 9.1 Neut % (Auto) 66.8 Lymph % (Auto) 20.0 [place] % (Auto) 10.2 H Eos % (Auto) 2.8 Baso % (Auto) 0.1 Neut # (Auto) 3.6 Lymph # (Auto) 1.1 [place] # (Auto) 0.6 Eos # (Auto) 0.2 Baso # (Auto) 0.0 Sodium 138 Potassium 4.7 D Chloride 104 Carbon Dioxide 24 Anion Gap 14.7 BUN 17 Creatinine 0.61 D Estimated Creat Clear 114 Estimated GFR 107 Est GFR ( Amer) 129 D Glucose 116 H Calcium 8.0 L Lipase 79 - Additional Comments Rounded with Dr. Gates all orders per Dr. Gates DS: Diagnosis - Discharge Diagnosis (1) Chest pain Status: Acute (2) Obesity Status: Acute (3) Coronary artery disease Status: Acute (4) Diabetes mellitus type 2 in obese Status: Acute (5) Hyperlipidemia associated with type 2 diabetes mellitus Status: Acute (6) Hypertension Status: Acute (7) Morbid obesity with BMI of 50.0-59.9, adult Status: Acute Discharge Plan - Patient Discharge Instructions ACTIVITY: Continue current activity DIET: continue same diet Patient Instructions: Coronary Artery Disease, DI for Obesity -- Adult, DI for Chest Pain - Follow up Plan Follow up with: Casey Ledesma MD [Staff Physician] - 10/29/18 9:10 am Lewis Gates MD [Staff Physician] - 1 week Disposition: Home, Self-[facility] Medications: Home Medications Medication Instructions Recorded Confirmed Type Atorvastatin Calcium [Atorvastatin 40 mg PO HS 10/13/18 10/13/18 History 40mg Tab] Canagliflozin [Invokana] 100 mg PO DAILY 10/13/18 10/13/18 History Carvedilol [Carvedilol 12.5mg Tab] 12.5 mg PO BID 10/13/18 10/14/18 History Clopidogrel Bisulfate [Plavix 75mg 75 mg PO DAILY 10/13/18 10/13/18 History Tab] Furosemide [Furosemide 40MG tAB] 40 mg PO DAILY 10/13/18 10/14/18 History Gabapentin 800 mg PO QID 10/13/18 10/13/18 History Hydrocodone/Acetaminophen 1 each PO TID 10/13/18 10/13/18 History [Hydrocodone-Acetamin 5-325 mg] Isosorbide Mononitrate [Imdur 30mg 30 mg PO DAILY 10/13/18 10/13/18 History ER tablet] Losartan Potassium 100 mg PO DAILY 10/13/18 10/13/18 History Omeprazole [Omeprazole 40mg 40 mg PO BID 10/13/18 10/13/18 History Capsule] Sertraline HCl [Zoloft 50mg tablet] 50 mg PO DAILY 10/13/18 10/14/18 History Spironolactone 25 mg PO DAILY 10/13/18 10/13/18 History Trazodone HCl 150 mg PO HS 10/13/18 10/13/18 History clonazePAM [Clonazepam] 0.5 mg PO BID 10/13/18 10/13/18 History Atorvastatin Calcium [Lipitor 40mg 40 mg PO HS 30 Days #30 tab 10/15/18 Rx Tablet] Carvedilol [Coreg 12.5mg 12.5 mg PO BID 60 Days #60 tab 10/15/18 Rx Tablet] Furosemide [Lasix 40mg tablet] 40 mg PO DAILY 30 Days #30 tab 10/15/18 Rx Prescriptions/Medication Reconciliation: New Carvedilol [Coreg 12.5mg Tablet] 12.5 mg PO BID 60 Days #60 tab Furosemide [Lasix 40mg tablet] 40 mg PO DAILY 30 Days #30 tab Atorvastatin Calcium [Lipitor 40mg Tablet] 40 mg PO HS 30 Days #30 tab Continued Spironolactone 25 mg PO DAILY Furosemide [Furosemide 40MG tAB] 40 mg PO DAILY Carvedilol [Carvedilol 12.5mg Tab] 12.5 mg PO BID Canagliflozin [Invokana] 100 mg PO DAILY clonazePAM [Clonazepam] 0.5 mg PO BID Clopidogrel Bisulfate [Plavix 75mg Tab] 75 mg PO DAILY Gabapentin 800 mg PO QID Hydrocodone/Acetaminophen [Hydrocodone-Acetamin 5-325 mg] 1 each PO TID Isosorbide Mononitrate [Imdur 30mg ER tablet] 30 mg PO DAILY Losartan Potassium 100 mg PO DAILY Omeprazole [Omeprazole 40mg Capsule] 40 mg PO BID Trazodone HCl 150 mg PO HS Sertraline HCl [Zoloft 50mg tablet] 50 mg PO DAILY Discontinued Atorvastatin Calcium [Atorvastatin 40mg Tab] 40 mg PO HS
== END 2018-10-15 10:49 | disposition home or self-care (01) ==
LOC: ER 11:40 → 2ND 17:37 → INTOOBSV 18:09 → 2ND 18:10
PROVIDERS: ADMIT Family Medicine; ATTEND Emergency Medicine
DX: Z68.43 Body mass index [BMI] 50.0-59.9, adult; Z88.2 Allergy status to sulfonamides; E66.01 Morbid (severe) obesity due to excess calories; I25.119 Atherosclerotic heart disease of native coronary artery with unspecified angina pectoris; R07.2 Precordial pain; Z88.8 Allergy status to other drugs, medicaments and biological substances; Z79.899 Other long term (current) drug therapy; R94.31 Abnormal electrocardiogram [ECG] [EKG]; Z82.49 Family history of ischemic heart disease and other diseases of the circulatory system; E11.69 Type 2 diabetes mellitus with other specified complication; K50.90 Crohn's disease, unspecified, without complications; Z87.891 Personal history of nicotine dependence; E78.5 Hyperlipidemia, unspecified; I10 Essential (primary) hypertension
CPT/HCPCS: 36415; 71010; 71045; 80048; 80053; 80061; 82962; 83690; 83880; 84484; 85025; 85378; 85651; 86140; 93005; 96365; 99284; G0378; J2405

== ENCOUNTER 2019-03-07 11:56 | Observation (INO) ==
--- NOTE | 2019-03-07 12:03 | Emergency Department Note ---
ED Disposition Clinical Impression: Unstable angina Disposition: Admitted as Observation Condition on Discharge: Fair Referrals: Lewis Gates MD [Primary Care Provider] - - Critical Care Critical Care Time: No Attestation: On , the high probability of a clinically significant, sudden or life thre atening deterioration of the following system(s) required my full and direct attention, intervention and personal management. The time I documented below is in addition to time spent performing reported procedures but includes the following listed in this critical care notation. Medical Decision Making - Fredi Inquiry Pt receiving controlled substance: No Vital Signs: 03/07/19 11:57 Temperature 97.9 F Temperature Source Oral Pulse Rate [Left Radial] 90 Respiratory Rate 18 Blood Pressure [Right Arm] 158/98 H Blood Pressure Mean [Right Arm] 118 Blood Pressure Position [Right Arm] Sitting 02 Sat by Pulse Oximetry 96 Oxygen Delivery Method Room Air - Lab Data Lab Results 03/07/19 12:00: WBC 6.4, RBC 4.40, Hgb 12.5, Hct 40.5, MCV 92.1, MCH 28.4, MCHC 30.8 L, RDW 14.9, Plt Count 181, MPV 8.7, Neut % (Auto) 77.3, Lymph % (Auto) 17.3, [place] % (Auto) 3.3, Eos % (Auto) 1.5, Baso % (Auto) 0.6, Neut # (Auto) 5.0, Lymph # (Auto) 1.1, [place] # (Auto) 0.2, Eos # (Auto) 0.1, Baso # (Auto) 0.0 03/07/19 12:00: Sodium 141, Potassium 3.9, Chloride 104, Carbon Dioxide 28, Anion Gap 12.9, BUN 10, Creatinine 0.75, Estimated Creat Clear 93, Estimated GFR 84, Est GFR ( Amer) 102, Glucose 114 H, Calcium 9.2, Troponin I < 0.02 03/07/19 12:00: B-Natriuretic Peptide 42 Result diagrams: 03/07/19 12:00 03/07/19 12:00 Orders (Tests/Meds): ED MEDICATIONS Generic Name Dose Route Start Last Admin Trade Name Freq PRN Reason Stop Dose Admin Carvedilol 12.5 mg 03/07/19 21:00 Coreg 12.5mg Tablet PO 04/06/19 20:59 BID VIVIEN Irbesartan 150 mg 03/08/19 09:00 Avapro 150mg Tablet PO 04/07/19 08:59 DAILY [facility] Nitroglycerin 1 gm 03/07/19 13:45 Nitroglycerin 1 Inch Oint Udp TD 04/06/19 13:44 Q6H VIVIEN Spironolactone 25 mg 03/08/19 09:00 Aldactone 25mg Tablet PO 04/07/19 08:59 DAILY VIVIEN Discontinued Medications Generic Name Dose Route Start Last Admin Trade Name [place] PRN Reason Stop Dose Admin Hydrocodone Bitart/Acetaminophen 1 tab 03/07/19 13:37 [place] 5/325mg Tablet PO 03/07/19 13:38 ONCE ONE Furosemide 40 mg 03/07/19 13:37 Lasix 40mg/4ml Vial IV 03/07/19 13:38 ONCE ONE ORDERS Category Date Time Status Consult to Cardiology [CONS] Routine Cons 03/07/19 12:17 Active XR chest portable Stat Exams 03/07/19 12:03 Taken Troponin I Timed Lab 03/07/19 15:00 Ordered - ECG Data Tracing #1 EKG interpreted by Jude Belle MD: Rhythm: sinus Rate: 85 [place]: normal Ectopy: none Conduction: normal ST Segment Changes: Anterior, inferior, lateral depression. T Wave Changes: Anterior, inferior, lateral biphasic Q Waves: none Prior electrocardiagrams reviewed. No change from prior tracings. - Physician Consults Physician Consulted: MARTA Sumner, for Dr. Ledesma Time: 13:41 Reason -: Cardiology Eval/Care Comment/Response: Has seen patient in the emergency department, recommends ad mission. Additional Consult: Kody Time: 13:42 Reason -: Admission Comment/Response: Agrees to admit the patient to the hospital. We discussed the patient's clinical information, including history, exam, laboratory and radiology results and ED course. Per hospital procedure, I will write temporary bridge inpatient orders on the patient. Specific orders requested by the admitting physician: Patient requests pain medication for her legs, okay per Dr. Gates. Serial cardiac enzymes. Nitropaste. He will see the patient this evening. - MICHELLE Score for Non-Stemi Age of Patient: 40-49 years old Heart Rate: 90-109 bpm Systolic Blood Pressure: 140-159 mmHg Serum Creatinine: 0.40-0.79 mg/dl CHF [place] Class: I-No CHF Other Risk Factors: ST Segment Deviation Non-Stemi Risk Score: 96 General Adult HPI - General Chief complaint: Chest Pain Stated complaint: chest pain Time Seen by Provider: 03/07/19 12:03 - History of Present Illness HPI narrative: Sent by ambulance from Dr. Gates's office. States she has been having intermittent chest pain for 1 week. About 10 episodes a day the last about 5 minutes. Nothing seems to bring it on or relieve it. She has nitroglycerin at home but has not tried taking it. Episodes associated with shortness of breath, nausea, diaphoresis, and left shoulder pain. States she is currently pain- free. Episodes were more intense today and therefore she went to the doctor's office. She had an EKG and was sent here to the emergency room. Also complains of bilateral leg swelling for 1 week. She says she is supposed to see Dr. Ledesma for cardiology but has not seen him in the office yet. She was adm itted here back in September for similar symptoms. Has not taken her medicines for about a week because she has not had a chance to get out and get them filled. She has noted to have had a cardiac cath 2 years ago in [place] that showed mild to moderate coronary artery disease, no stents placed. - Related Data Home Medications Medication Instructions Recorded Confirmed Canagliflozin [Invokana] 100 mg PO DAILY 10/13/18 03/07/19 Losartan Potassium 100 mg PO DAILY 10/13/18 03/07/19 Omeprazole [Omeprazole 40mg 40 mg PO BID 10/13/18 03/07/19 Capsule] Sertraline HCl [Zoloft 50mg tablet] 50 mg PO DAILY 10/13/18 03/07/19 Spironolactone [Spironolactone 25 mg PO DAILY 10/13/18 03/07/19 25mg Tablet] Trazodone HCl 150 mg PO HS 10/13/18 03/07/19 clonazePAM [Clonazepam] 0.5 mg PO BID 10/13/18 03/07/19 Atorvastatin Calcium [Lipitor 40mg 40 mg PO HS 12/12/18 03/07/19 Tablet] Carvedilol [Coreg 12.5mg 12.5 mg PO BID 12/12/18 03/07/19 Tablet] Furosemide [Lasix 40mg tablet] 40 mg PO DAILY 12/12/18 03/07/19 Loratadine [Allerclear] 10 mg PO DAILY 02/19/19 03/07/19 promethazine 25 mg tablet 25 mg PO DAILY PRN tab 03/07/19 03/07/19 Allergies Allergy/AdvReac Type Severity Reaction Status Date / Time ketorolac [From TORADOL] Allergy Unknown UNKNOWN Verified 03/07/19 10:51 metoclopramide [From REGLAN] Allergy Unknown UNKNOWN Verified 03/07/19 10:51 Sulfa (Sulfonamide Allergy Unknown REGLAN Verified 03/07/19 10:51 Antibiotics) [SULFA (SULFONAMIDE ANTIBIOTICS)] tramadol [TRAMADOL] Allergy Unknown UNKNOWN Verified 03/07/19 10:51 [facility] History - Hepatitis A Screen Attestation statement:: This patient has been screened for Hepatitis A risk factors. I have reviewed the patient's past medical history: Yes Medical History: Reports:: Asthma, Depression, Diabetes Mellitus Type 2, Gall Bladder Disease, Hyperlipidemia, Hypertension Denies:: Cancer, Diabetes Mellitus Type 1, MRSA Other Medical History: Reports: Liver Disease (pancreatitis) Comment: chrons disease Other Surgeries: Yes: Cardiac Catheterization, Cholecystectomy, Colonoscopy, EGD, Hernia Repair Amputation: No Fractures: No - Social History Smoking Status: Former smoker Tobacco Type: cigarettes # Packs/Day (cigarettes): 1 Alcohol Intake: never Alcohol Intake Frequency:: holidays/special occasions only Occupational Status: disabled Housing: apartment Household Members: spouse - Psychiatric History Pschychiatric History:: Reports:: Depression Family Hx:: Cancer, Coronary Artery Disease, Diabetes, Heart Attack, Hyperlipidemia, Hypertension ROS Obtained: Yes All systems reviewed & no additional complaints - Constitutional Constitutional: Denies fever(s) - Cardiovascular Cardiovascular: Reports chest pain, Reports diaphoresis, Reports edema (Bilater al edema and leg pain), Reports radiating jaw, neck or arm pain - Respiratory Respiratory: Yes dyspnea - Gastrointestinal Gastrointestingal: Reports: nausea Physical Exam - General General appearance: alert, in no apparent distress - Head Head exam: atraumatic, normocephalic - Eye Eye exam: Present: normal appearance, EOMI - ENT ENT exam: Present: normal exam, mucous membranes moist - Neck Neck exam: Present: normal inspection, trachea midline - Chest Chest inspection: Present: normal inspection, symmetric chest wall rise - Respiratory Respiratory exam: Present: normal lung sounds bilaterally. Absent: respiratory distress - Cardiovascular Cardiovascular exam: Present: regular rate, normal rhythm, normal heart sounds - Abdominal Exam Abdominal exam: Present: soft, normal bowel sounds. Absent: distention, tenderness - Extremities Exam Extremities exam: Present: pedal edema - Neurological Exam Neurological exam: Present: alert, oriented X3 - Psychiatric Psychiatric exam: Present: anxious - Skin Skin exam: Present: warm, dry
[2019-03-07 12:33] LABS: Basophils % 0.6 % (0.1-2.0); Eosinophils # 0.1 K/mm3 (0.0-0.4); Eosinophils % 1.5 % (0.1-12.0); Hematocrit 40.5 % (37.0-47.0); Hemoglobin 12.5 g/dL (12.2-16.2); Lymphocytes # 1.1 K/mm3 (0.7-4.5); Lymphocytes % 17.3 % (10-50); Mean Corpuscular HGB Conc 30.8 g/dL (31.8-35.4); Mean Corpuscular Volume 92.1 fl (81-99); Mean Platelet Volume 8.7 fl (7.4-10.4); Monocytes # 0.2 K/mm3 (0.1-1.0); Monocytes % 3.3 % (1.7-9.3); Neutrophils % 77.3 % (37.0-80.0); Platelet Count 181 K/mm3 (142-424); Red Cell Distribution Width 14.9 % (11.5-17.5); White Blood Count 6.4 K/mm3 (4.8-10.8)
[2019-03-07 12:47] LABS: Anion Gap 12.9 mEq/L (5-15); Blood Urea Nitrogen 10 mg/dL (7-18); Calcium 9.2 mg/dL (8.5-10.1); Carbon Dioxide 28 mmol/L (21.0-32.0); Chloride 104 mmol/L (98-107); Glucose 114 mg/dL (74-106); Sodium 141 mmol/L (136-145)
--- NOTE | 2019-03-07 13:19 | Consult Report ---
<Derek Lutz U - Last Filed: 03/07/19 13:33> History of Present Illness Consult date: 03/07/19 Requesting physician: Lewis Gates Consult reason: chest pain, shortness of breath Chief complaint: CP, SOA, leg pain Additional Medical History:: 1. Coronary artery disease A. History of [facility], 02/06/2018, [facility], Dr. Bush, two vessel CAD with 50% mid LAD lesion and 30% proximal ramus lesion. RCA dominant. LVEF normal 2. History of Crohn's disease 3. Diabetes mellitus, type II 4. Family history of coronary artery disease in her father who was a smoker 5. History of CVA with left side affected 6. Obesity 7. Hypertension 8. Hyperlipidemia 9. History of pancreatitis History of present illness: 43-year-old white female presented to Dr. Gates's office to establish care. Patient complaining of one-week history of shortness of breath and edema which has progressed to include chest pain and leg pain. Patient has an abnormal EKG and was sent to the ER for evaluation. In review of her records patient has had a previous cardiac cath in January of last year that showed only mild to moderate disease with no need for intervention. Her EKG when compared with previous EKGs is consistent and with no acute changes. Patient's initial troponin in the ER is normal. Patient relates to me that she has been out of her medications for over a week and has gained 30 pounds in that timeframe. Cardiology consulted for evaluation recommendations. [facility] History Medical History: Reports:: Asthma, Depression, Diabetes Mellitus Type 2, Gall Bladder Disease, Hyperlipidemia, Hypertension Denies:: Cancer, Diabetes Mellitus Type 1, MRSA *Have you ever received a pneumonia vaccine?: No *Have you received a flu vaccine this season?: No Other Medical History: Reports: Liver Disease (pancreatitis) Other Surgeries: Yes: Cardiac Catheterization, Cholecystectomy, Colonoscopy, EGD, Hernia Repair Amputation: No Fractures: No - *Social History Smoking Status: Former smoker Tobacco Type: cigarettes # Packs/Day (cigarettes): 1 Alcohol Intake: never Alcohol Intake Frequency:: holidays/special occasions only *Occupational Status:: disabled Housing: apartment Household Members: spouse *Travel in the last 8 weeks: None - Psychiatric History Pschychiatric History:: Reports:: Depression Family Hx:: Cancer, Coronary Artery Disease, Diabetes, Heart Attack, Hyperlipidemia, Hypertension Meds Home Medications Medication Instructions Recorded Confirmed Type Canagliflozin [Invokana] 100 mg PO DAILY 10/13/18 03/07/19 History Losartan Potassium 100 mg PO DAILY 10/13/18 03/07/19 History Omeprazole [Omeprazole 40mg 40 mg PO BID 10/13/18 03/07/19 History Capsule] Sertraline HCl [Zoloft 50mg tablet] 50 mg PO DAILY 10/13/18 03/07/19 History Spironolactone [Spironolactone 25 mg PO DAILY 10/13/18 03/07/19 History 25mg Tablet] Trazodone HCl 150 mg PO HS 10/13/18 03/07/19 History clonazePAM [Clonazepam] 0.5 mg PO BID 10/13/18 03/07/19 History Atorvastatin Calcium [Lipitor 40mg 40 mg PO HS 12/12/18 03/07/19 History Tablet] Carvedilol [Coreg 12.5mg 12.5 mg PO BID 12/12/18 03/07/19 History Tablet] Furosemide [Lasix 40mg tablet] 40 mg PO DAILY 12/12/18 03/07/19 History Loratadine [Allerclear] 10 mg PO DAILY 02/19/19 03/07/19 History Albuterol Sulfate [Proventil-HFA 2 puffs IH QIDP PRN 03/07/19 03/07/19 History 90mcg/puff Inh] Aspirin [Aspirin 81mg EC Tab] 81 mg PO DAILY 03/07/19 03/07/19 History Cholecalciferol (Vitamin D3) 2,000 unit PO DAILY 03/07/19 03/07/19 History [Vitamin D3 1,000 Unit Cap] Gabapentin [Gabapentin 400mg Cap] 800 mg PO TID 03/07/19 03/07/19 History Hydrocodone/Acetaminophen [Lortab 5 mg PO BID 03/07/19 03/07/19 History 10/325mg tablet] Promethazine HCl [Phenergan 25mg 25 mg PO Q6HP PRN 03/07/19 03/07/19 History tab] promethazine 25 mg tablet 25 mg PO DAILY PRN tab 03/07/19 03/07/19 History Allergies Allergy/AdvReac Type Severity Reaction Status Date / Time ketorolac [From TORADOL] Allergy Unknown UNKNOWN Verified 03/07/19 10:51 metoclopramide [From REGLAN] Allergy Unknown UNKNOWN Verified 03/07/19 10:51 Sulfa (Sulfonamide Allergy Unknown REGLAN Verified 03/07/19 10:51 Antibiotics) [SULFA (SULFONAMIDE ANTIBIOTICS)] tramadol [TRAMADOL] Allergy Unknown UNKNOWN Verified 03/07/19 10:51 Review of Systems - Constitutional Reports weight gain - *Cardiovascular Reports chest pain, Reports shortness of breath, Reports shortness of breath with activity, Reports leg swelling - *Respiratory Reports shortness of breath, Reports shortness of breath with activity - *Gastrointestinal Denies loose stools, Denies nausea, Denies vomiting - *Genitourinary Denies blood in urine - *Musculoskeletal Reports back pain, Denies joint pain - *Neurologic Denies dizziness, Denies fainting, Denies tingling Exam Vital signs and Labs for Last 24 Hours: Temp Pulse Resp BP Pulse Ox 97.9 F 90 18 158/98 H 96 03/07/19 11:57 03/07/19 11:57 03/07/19 11:57 03/07/19 11:57 03/07/19 11:57 Laboratory Results - last 24 hr 03/07/19 12:00: WBC 6.4, RBC 4.40, Hgb 12.5, Hct 40.5, MCV 92.1, MCH 28.4, MCHC 30.8 L, RDW 14.9, Plt Count 181, MPV 8.7, Neut % (Auto) 77.3, Lymph % (Auto) 17.3, [place] % (Auto) 3.3, Eos % (Auto) 1.5, Baso % (Auto) 0.6, Neut # (Auto) 5.0, Lymph # (Auto) 1.1, [place] # (Auto) 0.2, Eos # (Auto) 0.1, Baso # (Auto) 0.0 03/07/19 12:00: Sodium 141, Potassium 3.9, Chloride 104, Carbon Dioxide 28, Anion Gap 12.9, BUN 10, Creatinine 0.75, Estimated Creat Clear 93, Estimated GFR 84, Est GFR ( Amer) 102, Glucose 114 H, Calcium 9.2, Troponin I < 0.02 03/07/19 12:00: B-Natriuretic Peptide 42 I & O for Last 24 hours: Intake & Output 03/05/19 03/06/19 03/07/19 03/08/19 11:59 11:59 11:59 11:59 Weight 366 lb - *Routine HEENT Exam Head: Present: normocephalic Eye: Present: EOMI, PERRL ENT: Present: mucous membranes moist - *Routine Neck Exam Present: supple. Absent: JVD, carotid bruit - *Routine Respiratory Exam Present: CTA bilaterally. Absent: accessory muscle use, rales, rhonchi, wheezes - *Routine Cardiovascular Exam Present: RRR. Absent: murmur, gallop, rubs - *Routine Abdominal Exam Present: soft. Absent: tenderness, distended, guarding - *Routine Extremities Exam Present: edema. Absent: calf tenderness - *Routine Neurological Exam Present: alert, oriented X3, moving all extremities Assessment and Plan (1) Abnormal EKG Current visit: No Status: Acute Category: Medical Code(s): R94.31 - Abnormal electrocardiogram [ECG] [EKG] (2) Atypical chest pain Current visit: No Status: Acute Category: Medical Code(s): R07.89 - Other chest pain (3) Coronary artery disease Current visit: No Status: Acute Qualifiers: Coronary Disease-Associated Artery/Lesion type: unspecified vessel or lesion type [place] vs. transplanted heart: [place] heart Associated angina: with unspecified angina Qualified Code(s): I25.119 - Atherosclerotic heart disease of [place] coronary artery with unspecified angina pectoris Category: Medical Code(s): I25.10 - Atherosclerotic heart disease of [place] coronary artery without angina pectoris (4) Diabetes mellitus type 2 in obese Current visit: No Status: Acute Category: Medical Code(s): E11.69 - Type 2 diabetes mellitus with other specified complication; E66.9 - Obesity, unspecified (5) Hyperlipidemia associated with type 2 diabetes mellitus Current visit: No Status: Acute Category: Medical Code(s): E11.69 - Type 2 diabetes mellitus with other specified complication; E78.5 - Hyperlipidemia, unspecified (6) Hypertension Current visit: No Status: Acute Category: Medical Code(s): I10 - Essential (primary) hypertension (7) Morbid obesity with BMI of 50.0-59.9, adult Current visit: No Status: Acute Category: Medical Code(s): E66.01 - Morbid (severe) obesity due to excess calories; Z68.43 - Body mass index (BMI) 50.0- 59.9, adult (8) Edema Current visit: Yes Status: Acute Category: Medical Code(s): R60.9 - Edema, unspecified - Assessment and plan all Dx Assessment and Plan for all problems:: 1. Recommend admission/observation for exacerbation of diastolic dysfunction/hypertensive heart disease with edema due to medication noncompliance. Resume patient's home medications of Coreg and losartan along with spironolactone and IV Lasix. 2. Obtain echocardiogram to evaluate left ventricular size and function as well as valve status. 3. Chest pain, atypical features, recommend serial cardiac enzymes to rule out myocardial infarction. If normal then no further cardiac work-up. <Jude Belle - Last Filed: 03/07/19 13:43> Exam Vital signs and Labs for Last 24 Hours: Temp Pulse Resp BP Pulse Ox 97.9 F 90 18 158/98 H 96 03/07/19 11:57 03/07/19 11:57 03/07/19 11:57 03/07/19 11:57 03/07/19 11:57 Laboratory Results - last 24 hr 03/07/19 12:00: WBC 6.4, RBC 4.40, Hgb 12.5, Hct 40.5, MCV 92.1, MCH 28.4, MCHC 30.8 L, RDW 14.9, Plt Count 181, MPV 8.7, Neut % (Auto) 77.3, Lymph % (Auto) 17.3, [place] % (Auto) 3.3, Eos % (Auto) 1.5, Baso % (Auto) 0.6, Neut # (Auto) 5.0, Lymph # (Auto) 1.1, [place] # (Auto) 0.2, Eos # (Auto) 0.1, Baso # (Auto) 0.0 03/07/19 12:00: Sodium 141, Potassium 3.9, Chloride 104, Carbon Dioxide 28, Anion Gap 12.9, BUN 10, Creatinine 0.75, Estimated Creat Clear 93, Estimated GFR 84, Est GFR ( Amer) 102, Glucose 114 H, Calcium 9.2, Troponin I < 0.02 03/07/19 12:00: B-Natriuretic Peptide 42 I & O for Last 24 hours: Intake & Output 03/04/19 03/05/19 03/06/19 03/07/19 23:59 23:59 23:59 23:59 Weight 166.015 kg Assessment and Plan (1) Abnormal EKG Current visit: No Status: Acute Category: Medical Code(s): R94.31 - Abnormal electrocardiogram [ECG] [EKG] (2) Atypical chest pain Current visit: No Status: Acute Category: Medical Code(s): R07.89 - Other chest pain (3) Coronary artery disease Current visit: No Status: Acute Qualifiers: Coronary Disease-Associated Artery/Lesion type: unspecified vessel or lesion type [place] vs. transplanted heart: [place] heart Associated angina: with unspecified angina Qualified Code(s): I25.119 - Atherosclerotic heart disease of [place] coronary artery with unspecified angina pectoris Category: Medical Code(s): I25.10 - Atherosclerotic heart disease of [place] coronary artery without angina pectoris (4) Diabetes mellitus type 2 in obese Current visit: No Status: Acute Category: Medical Code(s): E11.69 - Type 2 diabetes mellitus with other specified complication; E66.9 - Obesity, unspecified (5) Hyperlipidemia associated with type 2 diabetes mellitus Current visit: No Status: Acute Category: Medical Code(s): E11.69 - Type 2 diabetes mellitus with other specified complication; E78.5 - Hyperlipidemia, unspecified (6) Hypertension Current visit: No Status: Acute Category: Medical Code(s): I10 - Essential (primary) hypertension (7) Morbid obesity with BMI of 50.0-59.9, adult Current visit: No Status: Acute Category: Medical Code(s): E66.01 - Morbid (severe) obesity due to excess calories; Z68.43 - Body mass index (BMI) 50.0- 59.9, adult (8) Edema Current visit: Yes Status: Acute Category: Medical Code(s): R60.9 - Edema, unspecified <Lewis Gates - Last Filed: 03/08/19 09:36> Exam Vital signs and Labs for Last 24 Hours: Temp Pulse Resp BP Pulse Ox 98.0 F 83 18 144/79 H 96 03/08/19 08:00 03/08/19 08:00 03/08/19 08:00 03/08/19 08:00 03/08/19 08:00 Laboratory Results - last 24 hr 03/07/19 12:00: WBC 6.4, RBC 4.40, Hgb 12.5, Hct 40.5, MCV 92.1, MCH 28.4, MCHC 30.8 L, RDW 14.9, Plt Count 181, MPV 8.7, Neut % (Auto) 77.3, Lymph % (Auto) 17.3, [place] % (Auto) 3.3, Eos % (Auto) 1.5, Baso % (Auto) 0.6, Neut # (Auto) 5.0, Lymph # (Auto) 1.1, [place] # (Auto) 0.2, Eos # (Auto) 0.1, Baso # (Auto) 0.0 03/07/19 12:00: Sodium 141, Potassium 3.9, Chloride 104, Carbon Dioxide 28, Anion Gap 12.9, BUN 10, Creatinine 0.75, Estimated Creat Clear 93, Estimated GFR 84, Est GFR ( Amer) 102, Glucose 114 H, Calcium 9.2, Troponin I < 0.02 03/07/19 12:00: B-Natriuretic Peptide 42 03/07/19 17:17: Troponin I < 0.02 03/07/19 20:09: Troponin I < 0.02 03/08/19 06:24: Sodium 142, Potassium 3.4 L, Chloride 102, Carbon Dioxide 30, Anion Gap 13.4, BUN 15 D, Creatinine 0.74, Estimated Creat Clear 94, Estimated GFR 85, Est GFR ( Amer) 103, Glucose 111 H, Calcium 9.2 I & O for Last 24 hours: Intake & Output 03/05/19 03/06/19 03/07/19 03/08/19 11:59 11:59 11:59 11:59 Intake Total 360 / 360 Output Total 900 / 900 Balance -540 / -540 Weight 366 lb 337 lb 5 oz Assessment and Plan (1) Abnormal EKG Current visit: No Status: Acute Category: Medical Code(s): R94.31 - Abnormal electrocardiogram [ECG] [EKG] (2) Atypical chest pain Current visit: No Status: Acute Category: Medical Code(s): R07.89 - Other chest pain (3) Coronary artery disease Current visit: No Status: Acute Qualifiers: Coronary Disease-Associated Artery/Lesion type: unspecified vessel or lesion type [place] vs. transplanted heart: [place] heart Associated angina: with unspecified angina Qualified Code(s): I25.119 - Atherosclerotic heart disease of [place] coronary artery with unspecified angina pectoris Category: Medical Code(s): I25.10 - Atherosclerotic heart disease of [place] coronary artery without angina pectoris (4) Diabetes mellitus type 2 in obese Current visit: No Status: Acute Category: Medical Code(s): E11.69 - Type 2 diabetes mellitus with other specified complication; E66.9 - Obesity, unspecified (5) Hyperlipidemia associated with type 2 diabetes mellitus Current visit: No Status: Acute Category: Medical Code(s): E11.69 - Type 2 diabetes mellitus with other specified complication; E78.5 - Hyperlipidemia, unspecified (6) Hypertension Current visit: No Status: Acute Category: Medical Code(s): I10 - Essential (primary) hypertension (7) Morbid obesity with BMI of 50.0-59.9, adult Current visit: No Status: Acute Category: Medical Code(s): E66.01 - Morbid (severe) obesity due to excess calories; Z68.43 - Body mass index (BMI) 50.0- 59.9, adult (8) Edema Current visit: Yes Status: Acute Category: Medical Code(s): R60.9 - Edema, unspecified
--- NOTE | 2019-03-07 13:36 | Electrocardiograph Report ---
APPROVED REPORT Exam: Resting ECG HR:85 bpm ECG Measurements Heart Rate 85 AXES RI 130 P 54 QRSd 88 QRS 29 QT 392 T-7 QTc 466 <Conclusion> Normal sinus rhythm Possible Left atrial enlargement ST & T wave abnormality, consider anterolateral/inferior ischemia Prolonged QT Abnormal ECG Electronically signed by : Enoch Canela, 03/07/2019 13:35:51
--- NOTE | 2019-03-07 15:33 | Cardiology Report ---
APPROVED REPORT EXAM: Comprehensive 2D, Doppler, and color-flow Echocardiogram [employer]: Belen Ricks RDCS Ht: 5 ft 6 in Wt: 366lbs BSA: 2.59 BP: 159/98 mmHg Indications: Chest Pain, Shortness of Breath, Diabetes, Hyperlipidemia, Hypertension/HDD 2D Dimensions LVOT 2.07 cm (M/F) 1.5-2.5 M-Mode Dimensions RVDd 1.65 cm (0.9-2.6)LVDd 6.16 cm (3.5-5.7) LVDs 4.95 cm (3.5-5.7)IVSd 1.08 cm (0.6-1.1) PWd 1.08 cm (0.6-1.1)EF (Teich) 39.60% FS 19.60% EDV (Teich) 191.10 mL ESV (Teich) 115.50 mL LV Diastology E/A Ratio 0.84 Mitral Valve MV A Velocity 82.00 (40-130 cm/s) Left Ventricle Left atrium is mildly enlarged, left ventricle is normal size, mild concentric left ventricular hypertrophy, visually estimated ejection fraction 55% with no regional wall motion abnormality. Grade 1 diastolic dysfunction seen without tissue Doppler evidence of raise left atrial pressure. Right Ventricle Right atrium and right ventricular normal size and contractility. Aortic Valve Aortic valve is minimally thickened and fibrosed. There is no aortic stenosis aortic insufficiency. Mitral Valve Mitral valve is grossly normal, there is mild mitral regurgitation. Tricuspid Valve Tricuspid valve is grossly normal, there is mild tricuspid regurgitation. Pulmonic Valve Pulmonic valve is poorly visualized. Great Vessels Aortic root is normal size. Pericardium No significant pericardial effusion noted. Conclusion 1. Mildly enlarged left atrium, normal left ventricular size, mild concentric left ventricular hypertrophy, visually estimated ejection fraction 55% with no regional wall motion abnormality. Grade 1 diastolic dysfunction seen without tissue Doppler evidence of raise left atrial pressure. 2. Mild mitral and tricuspid regurgitation. 3. No significant pericardial effusion noted. Electronically signed by : Karthik Henry, 03/07/2019 15:33:20
--- NOTE | 2019-03-07 15:52 | Pharmacy Consult Notes ---
[facility] Pharmacy VTE Monitoring - Patient Demographics Admission date: 03/07/19 Report Date: 03/07/19 Time: 15:51 Allergies/Adverse Reactions: Patient Allergies ketorolac [From TORADOL] Allergy (Unknown, Verified 03/07/19 10:51) UNKNOWN metoclopramide [From REGLAN] Allergy (Unknown, Verified 03/07/19 10:51) UNKNOWN Sulfa (Sulfonamide Antibiotics) [SULFA (SULFONAMIDE ANTIBIOTICS)] Allergy (Unknown, Verified 03/07/19 10:51) REGLAN tramadol [TRAMADOL] Allergy (Unknown, Verified 03/07/19 10:51) UNKNOWN Height: 1.7 m Weight: 166.015 kg Patient Problems: Current Active Problems Edema (Acute) Unstable angina (Acute) - VTE Risk Labs: VTE Related Lab Results Hgb 12.5 g/dL (12.2-16.2) 03/07/19 12:00 Hct 40.5 % (37.0-47.0) 03/07/19 12:00 Plt Count 181 K/mm3 (142-424) 03/07/19 12:00 BUN 10 mg/dL (7-18) 03/07/19 12:00 Creatinine 0.75 mg/dL (0.55-1.02) 03/07/19 12:00 Estimated Creat Clear 93 mL/min (50-200) 03/07/19 12:00 - Prophylaxis VTE Prophylaxis Ordered?: Yes Types of VTE Prophylaxis: TEDS Knee High Location of Applied Device: Bilateral Lower Extremeties - VTE Diagnosis Confirmed Treatment or plan recommended: Continue Current Treatment
[2019-03-08 07:04] LABS: Anion Gap 13.4 mEq/L (5-15); Calcium 9.2 mg/dL (8.5-10.1)
--- NOTE | 2019-03-08 09:08 | H&P/Discharge Summary ---
General - General Admission date:: 03/07/19 Discharge date: 03/08/19 *Admission Date: 03/07/19 *Chief complaint: chest pain *History of present illness: this wf presented to [facility] office for first visit and was having chest pain and sob and had not taken meds x 1 week - she had abn ekg in office and was sent to the ed - ent by ambulance from Dr. Gates's office. States she has been having intermittent chest pain for 1 week. About 10 episodes a day the last about 5 minutes. Nothing seems to bring it on or relieve it. She has nitroglycerin at home but has not tried taking it. Episodes associated with shortness of breath, nausea, diaphoresis, and left shoulder pain. States she is currently pain-free. Episodes were more intense today and therefore she went to the doctor's office. She had an EKG and was sent here to the emergency room. Also complains of bilateral leg swelling for 1 week. She says she is supposed to see Dr. Ledesma for cardiology but has not seen him in the office yet. She was admitted here back in September for similar symptoms. Has not taken her medicines for about a week because she has not had a chance to get out and get them filled. She has noted to have had a cardiac cath 2 years ago in [place] that showed mild to moderate coronary artery disease, no stents placed. pt was admitted for eval and treatment - [facility] History I have reviewed the patient's past medical history: Yes Medical History: Reports:: Asthma, Depression, Diabetes Mellitus Type 2, Gall Bladder Disease, Hyperlipidemia, Hypertension Denies:: Cancer, Diabetes Mellitus Type 1, MRSA *Have you ever received a pneumonia vaccine?: Yes *Have you received a flu vaccine this season?: Yes Other Medical History: Reports: Anemia, Liver Disease (pancreatitis) Other Surgeries: Yes: Cardiac Catheterization, Cholecystectomy, Colonoscopy, EGD, Hernia Repair Amputation: No Fractures: No - *Social History Educational Level: Attended High School Smoking Status: Former smoker Tobacco Type: cigarettes # Packs/Day (cigarettes): 1 #Yrs smoked (if former smoker): 1 Smoking End Date: 23 years ago Alcohol Intake: never Alcohol Intake Frequency:: holidays/special occasions only *Occupational Status:: disabled Housing: apartment Household Members: spouse, children *Travel in the last 8 weeks: None - Psychiatric History Pschychiatric History:: Reports:: Depression Family Hx:: Cancer, Diabetes, Heart Attack, Hypertension Review of Systems - Review of Systems Review of systems:: pertinent systems reviewed and negative unless documented below - Constitutional Denies fever(s) - Eyes Denies change in vision - ENT Denies sore throat - *Cardiovascular Reports chest pain, Reports chest pain at rest, Reports shortness of breath - *Respiratory Reports shortness of breath - *Gastrointestinal Denies abdominal pain - *Genitourinary Denies blood in urine - *Musculoskeletal Reports back pain, Denies joint pain, Denies joint swelling - Integumentary/Breasts Denies rash - *Neurologic Denies dizziness, Denies fainting, Denies tingling - Psychiatric Denies anxiety Exam Vital signs and Labs for Last 24 Hours: Temp Pulse Resp BP Pulse Ox 98.0 F 83 18 144/79 H 96 03/08/19 08:00 03/08/19 08:00 03/08/19 08:00 03/08/19 08:00 03/08/19 08:00 Laboratory Results - last 24 hr 03/07/19 12:00: WBC 6.4, RBC 4.40, Hgb 12.5, Hct 40.5, MCV 92.1, MCH 28.4, MCHC 30.8 L, RDW 14.9, Plt Count 181, MPV 8.7, Neut % (Auto) 77.3, Lymph % (Auto) 17.3, [place] % (Auto) 3.3, Eos % (Auto) 1.5, Baso % (Auto) 0.6, Neut # (Auto) 5.0, Lymph # (Auto) 1.1, [place] # (Auto) 0.2, Eos # (Auto) 0.1, Baso # (Auto) 0.0 03/07/19 12:00: Sodium 141, Potassium 3.9, Chloride 104, Carbon Dioxide 28, Anion Gap 12.9, BUN 10, Creatinine 0.75, Estimated Creat Clear 93, Estimated GFR 84, Est GFR ( Amer) 102, Glucose 114 H, Calcium 9.2, Troponin I < 0.02 03/07/19 12:00: B-Natriuretic Peptide 42 03/07/19 17:17: Troponin I < 0.02 03/07/19 20:09: Troponin I < 0.02 03/08/19 06:24: Sodium 142, Potassium 3.4 L, Chloride 102, Carbon Dioxide 30, Anion Gap 13.4, BUN 15 D, Creatinine 0.74, Estimated Creat Clear 94, Estimated GFR 85, Est GFR ( Amer) 103, Glucose 111 H, Calcium 9.2 I & O for Last 24 hours: Intake & Output 03/05/19 03/06/19 03/07/19 03/08/19 11:59 11:59 11:59 11:59 Intake Total 360 / 360 Balance 360 / 360 Weight 366 lb 337 lb 5 oz - Constitutional no acute distress, obese - *Routine HEENT Exam Head: Present: normocephalic Eye: Present: EOMI, PERRL ENT: Present: mucous membranes dry - *Routine Neck Exam Absent: JVD - *Routine Respiratory Exam Present: decreased breath sounds - *Routine Cardiovascular Exam Present: RRR, murmur, S4 - *Routine Abdominal Exam Present: soft - *Routine Extremities Exam Present: edema. Absent: calf tenderness - *Routine Skin Exam Present: intact - *Routine Neurological Exam Present: alert, oriented X3, CN II-XII intact - Routine Psychiatric Exam Present: normal affect Hospital Course Hospital Course: pt was seen by card and had echo which showed lvh and was seen by card -Coronary artery disease A. History of [facility], 02/06/2018, [facility], Dr. Bush, two vessel CAD with 50% mid LAD lesion and 30% proximal ramus lesion. RCA dominant. LVEF normal 2. History of Crohn's disease 3. Diabetes mellitus, type II 4. Family history of coronary artery disease in her father who was a smoker 5. History of CVA with left side affected 6. Obesity 7. Hypertension 8. Hyperlipidemia 9. History of pancreatitis History of present illness: 43-year-old white female presented to Dr. Gates's office to establish care. Patient complaining of one-week history of shortness of breath and edema which has progressed to include chest pain and leg pain. Patient has an abnormal EKG and was sent to the ER for evaluation. In review of her records patient has had a previous cardiac cath in January of last year that showed only mild to moderate disease with no need for intervention. Her EKG when compared with previous EKGs is consistent and with no acute changes. Patient's initial troponin in the ER is normal. Patient relates to me that she has been out of her medications for over a week and has gained 30 pounds in that timeframe. Cardiology consulted for evaluation recommendations. ecommend admission/observation for exacerbation of diastolic dysfunction/hypertensive heart disease with edema due to medication noncompliance. Resume patient's home medications of Coreg and losartan along with spironolactone and IV Lasix. 2. Obtain echocardiogram to evaluate left ventricular size and function as well as valve status. 3. Chest pain, atypical features, recommend serial cardiac enzymes to rule out myocardial infarction. If normal then no further cardiac work-up. will d/c today as no pain and stable cardiac enz and will see sunday in office Results Labs on day of discharge: Labs from last 24 hours 03/08/19 03/07/19 03/07/19 06:24 20:09 17:17 WBC RBC Hgb Hct MCV MCH MCHC RDW Plt Count MPV Neut % (Auto) Lymph % (Auto) [place] % (Auto) Eos % (Auto) Baso % (Auto) Neut # (Auto) Lymph # (Auto) [place] # (Auto) Eos # (Auto) Baso # (Auto) Sodium 142 Potassium 3.4 L Chloride 102 Carbon Dioxide 30 Anion Gap 13.4 BUN 15 D Creatinine 0.74 Estimated Creat Clear 94 Estimated GFR 85 Est GFR ( Amer) 103 Glucose 111 H Calcium 9.2 Troponin I < 0.02 < 0.02 B-Natriuretic Peptide 03/07/19 03/07/19 03/07/19 12:00 12:00 12:00 WBC 6.4 RBC 4.40 Hgb 12.5 Hct 40.5 MCV 92.1 MCH 28.4 MCHC 30.8 L RDW 14.9 Plt Count 181 MPV 8.7 Neut % (Auto) 77.3 Lymph % (Auto) 17.3 [place] % (Auto) 3.3 Eos % (Auto) 1.5 Baso % (Auto) 0.6 Neut # (Auto) 5.0 Lymph # (Auto) 1.1 [place] # (Auto) 0.2 Eos # (Auto) 0.1 Baso # (Auto) 0.0 Sodium 141 Potassium 3.9 Chloride 104 Carbon Dioxide 28 Anion Gap 12.9 BUN 10 Creatinine 0.75 Estimated Creat Clear 93 Estimated GFR 84 Est GFR ( Amer) 102 Glucose 114 H Calcium 9.2 Troponin I < 0.02 B-Natriuretic Peptide 42 DS: Diagnosis - Discharge Diagnosis (1) Abnormal EKG Status: Acute (2) Atypical chest pain Status: Acute (3) Coronary artery disease Status: Acute (4) Diabetes mellitus type 2 in obese Status: Acute (5) Hyperlipidemia associated with type 2 diabetes mellitus Status: Acute (6) Hypertension Status: Acute (7) Morbid obesity with BMI of 50.0-59.9, adult Status: Acute (8) Edema Status: Acute (9) Neuropathy Status: Acute (10) Chronic back pain greater than 3 months duration Status: Acute (11) LVH (left ventricular hypertrophy) Status: Acute (12) Mild concentric left ventricular hypertrophy (LVH) Status: Acute Discharge Plan - Patient Discharge Instructions ACTIVITY: Continue current activity DIET: continue same diet - Follow up Plan Disposition: Home, Self-Custodial Medications: Home Medications Medication Instructions Recorded Confirmed Type Canagliflozin [Invokana] 100 mg PO DAILY 10/13/18 03/07/19 History Losartan Potassium 100 mg PO DAILY 10/13/18 03/07/19 History Omeprazole [Omeprazole 40mg 40 mg PO BID 10/13/18 03/07/19 History Capsule] Sertraline HCl [Zoloft 50mg tablet] 50 mg PO DAILY 10/13/18 03/07/19 History Spironolactone [Spironolactone 25 mg PO DAILY 10/13/18 03/07/19 History 25mg Tablet] Trazodone HCl 150 mg PO HS 10/13/18 03/07/19 History clonazePAM [Clonazepam] 0.5 mg PO BID 10/13/18 03/07/19 History Atorvastatin Calcium [Lipitor 40mg 40 mg PO HS 12/12/18 03/07/19 History Tablet] Carvedilol [Coreg 12.5mg 12.5 mg PO BID 12/12/18 03/07/19 History Tablet] Loratadine [Allerclear] 10 mg PO DAILY 02/19/19 03/07/19 History Albuterol Sulfate [Proventil-HFA 2 puffs IH QIDP PRN 03/07/19 03/07/19 History 90mcg/puff Inh] Aspirin [Aspirin 81mg EC Tab] 81 mg PO DAILY 03/07/19 03/07/19 History Cholecalciferol (Vitamin D3) 2,000 unit PO DAILY 03/07/19 03/07/19 History [Vitamin D3 1,000 Unit Cap] Gabapentin [Gabapentin 400mg Cap] 800 mg PO TID 03/07/19 03/07/19 History Hydrocodone/Acetaminophen [Lortab 5 mg PO BID 03/07/19 03/07/19 History 10/325mg tablet] Promethazine HCl [Phenergan 25mg 25 mg PO Q6HP PRN 03/07/19 03/07/19 History tab] promethazine 25 mg tablet 25 mg PO DAILY PRN tab 03/07/19 03/07/19 History Carvedilol [Coreg 12.5mg 12.5 mg PO BID #60 tab 03/08/19 Rx Tablet] Furosemide [Lasix 40mg tablet] 40 mg PO DAILY #30 tab 03/08/19 Rx Irbesartan [Avapro 150mg 150 mg PO DAILY #60 tab 03/08/19 Rx tablet] Spironolactone [Aldactone 25mg 25 mg PO DAILY #30 tab 03/08/19 Rx Tab] Prescriptions/Medication Reconciliation: New Irbesartan [Avapro 150mg tablet] 150 mg PO DAILY #60 tab Carvedilol [Coreg 12.5mg Tablet] 12.5 mg PO BID #60 tab Gabapentin [Neurontin 400mg cap] 800 mg PO TID capsule Spironolactone [Aldactone 25mg Tab] 25 mg PO DAILY #30 tab Continued promethazine 25 mg tablet 25 mg PO DAILY PRN tab PRN Reason: Nausea Spironolactone [Spironolactone 25mg Tablet] 25 mg PO DAILY Canagliflozin [Invokana] 100 mg PO DAILY Omeprazole [Omeprazole 40mg Capsule] 40 mg PO BID Trazodone HCl 150 mg PO HS Carvedilol [Coreg 12.5mg Tablet] 12.5 mg PO BID Atorvastatin Calcium [Lipitor 40mg Tablet] 40 mg PO HS Gabapentin [Gabapentin 400mg Cap] 800 mg PO TID Cholecalciferol (Vitamin D3) [Vitamin D3 1,000 Unit Cap] 2,000 unit PO DAILY Promethazine HCl [Phenergan 25mg tab] 25 mg PO Q6HP PRN PRN Reason: Nausea And Vomiting Furosemide [Lasix 40mg tablet] 40 mg PO DAILY #30 tab Sertraline HCl [Zoloft 50mg tablet] 50 mg PO DAILY Loratadine [Allerclear] 10 mg PO DAILY Albuterol Sulfate [Proventil-HFA 90mcg/puff Inh] 2 puffs IH QIDP PRN PRN Reason: breathing Aspirin [Aspirin 81mg EC Tab] 81 mg PO DAILY Discontinued clonazePAM [Clonazepam] 0.5 mg PO BID Losartan Potassium 100 mg PO DAILY Hydrocodone/Acetaminophen [Lortab 10/325mg tablet] 5 mg PO BID - Problem Reconciliation Problems Reviewed?: Yes
--- OUTSIDE RECORDS SUMMARY | 2019-03-10 15:14 | External Medical Summary | Continuity of Care Document ---
:1975 Author Organization [facility] Address [address] [facility] [address] [place] [id number] Phone Care Team Providers Name Role Phone Ben Fonseca Primary Care Provider Provider Primary Care Provider Unavailable Robb Attending Provider Michelle Gates Primary Care Provider Michelle Gates Attending Provider Allergies, Adverse Reactions, Alerts Allergen Type Severity Reaction Last Verified Status Updated ketorolac Allergy Unknown UNKNOWN Yes Active metoclopramide Allergy Unknown UNKNOWN Yes Activ e Sulfa (Sulfonamide Allergy Unknown REGLAN Yes A ctive Antibiotics) tramadol Allergy Unknown UNKNOWN Yes Active Medications Medication Status Dose Units Route Sig Qty Days Start End Instruct ions Date Date Promethazine Active 25 MG Oral Daily February 10:55am Loratadine Active 10 MG Oral Daily February 19, 2019 6:25pm Gabapentin Active 800 MG Oral Three February times a 2018 day 3:14pm Albuterol Active 2 PUFFS INHALATIO Four February Sulfate N time a 2018 day as 4:14pm needed Aspirin Active 81 MG Oral Daily March 07, 2019 4:14pm Cholecalciferol Active 2000 UNIT Oral Daily February (Vitamin D3) 2018 4:14pm Promethazine Active 25 MG Oral Every 6 February Hcl 2018 as 4:14pm needed Carvedilol Active 12.5 MG Oral Twice a February 9:39am Gabapentin Active 800 MG Oral Three February day 9:39am Irbesartan Active 150 MG Oral Daily March 08, 2019 9:39am Spironolactone Active 25 MG Oral Daily March 08, 2019 9:39am Furosemide Active 40 MG Oral Daily March 08, 2019 9:43am Canagliflozin Active 100 MG Oral Daily October 13, 2018 1:04pm Sertraline Hcl Active 50 MG Oral Daily October 13, 2018 1:04pm Spironolactone Active 25 MG Oral Daily October 13, 2018 1:04pm Omeprazole Active 40 MG Oral Twice a September 6:31pm Trazodone Hcl Active 150 MG Oral At September bedly 2018 6:31pm Atorvastatin Active 40 MG Oral At November bedtime ly 2018 1:07pm Carvedilol Active 12.5 MG Oral Twice a November 1:07pm Problems Active Problems Medical Problem Onset Date Status Chest pain syndrome Active Mild concentric left ventricular Active hypertrophy (LVH) Chronic back pain greater than 3 Active months duration Coronary artery disease Active Unstable angina Active Colitis Active Edema Active Gastroenteritis Active LVH (left ventricular hypertrophy) Activ e Atypical chest pain Active Neuropathy Active Hyperlipidemia associated with type Acti ve 2 diabetes mellitus Abnormal EKG Active Morbid obesity with BMI of Active 50.0-59.9, adult Diabetes mellitus type 2 in obese Active Chest pain Active Hypertension Active Obesity Active Dehydration Active Procedures Procedure Date Performed Status CT abdomen pelvis w con December 12, 2018 completed XR chest portable March 07, 2019 completed ECG initial Hilton March 07, 2019 completed XR chest 2V February 19, 2019 completed ECG initial Besson February 19, 2019 completed Relevant Diagnostic Tests and/or Laboratory Data Laboratory Results Test Date/Time Result Interpretation Reference Result Perfo rming Range Comment Site Glucose February 122 (Fingerstick) 2018 11:40am White Blood Count November 8.1 4.8-10.8 [facility], [address] [place] [address] E 2018 K/mm3 [place] [address] 10:45am White Blood Count January 6.2 4.8-10.8 [facility], [address] [place] [address] 2018 K/mm3 Bern[place] 21763 6:35pm White Blood Count February 6.4 4.8-10.8 [facility], [address] [place] [address] 2018 K/mm3 Bernardo [place] 25604 12:00pm Red Blood Count November 5.48 4.20-5.40 [facility], [address] [place] [address] 2018 M/mm3 Bern[place] [address] 10:45am Red Blood Count January 3.93 4.20-5.40 [facility], [address] [place] [address] 2018 M/mm3 Bernardo [place] 51968 6:35pm Red Blood Count February 4.40 4.20-5.40 [facility], [address] [place] [address] 2018 M/[place]3 [place] [address] 12:00pm Hemoglobin November 15.5 12.2-16.2 [facility], [address] [place] [address] 2018 g/[place] [address] 10:45am Hemoglobin January 11.0 12.2-16.2 [facility], [address] [place] [address] 2018 g/[place] [address] 6:35pm Hemoglobin February 12.5 12.2-16.2 [facility], [address] [place] [address] 2018 g/[place] [address] 12:00pm Hematocrit November 47.2 % 37.0-47.[address] 2018 [place] [address] 10:45am Hematocrit January 36.4 % 37.0-47.[address] [place] [address] 6:35pm Hematocrit November 40.5 % 37.0-47.0 [facility], [address] [place] [address] 36 E 2018 [place] [address] 12:00pm Mean Corpuscular Saline 86.1 fl 81-99 [facility], [address] [place] [address] E Volume 2018 [place] [address] 10:45am Mean Corpuscular January 92.5 fl 81-99 [facility], [address] [place] [address] E Volume 2018 [place] [address] 6:35pm Mean Corpuscular November 92.1 fl 81-99 [facility], [address] [place] [address] E Volume 2018 [place] [address] 12:00pm Mean Corpuscular November 28.4 pg 27.0-31.2 [facility], [address] [place] [address] E Hemoglobin 2018 Cynsánchez [place] [address] 10:45am Mean Corpuscular January 28.1 pg 27.0-31.2 [facility], [address] [place] [address] E Hemoglobin 2018 Cynsánchez [place] [address]207 6:35pm Mean Corpuscular February 28.4 pg 27.0-31.2 [facility], [address] [place] [address] E Hemoglobin 2018 [place] [address] 12:00pm Mean Corpuscular November 33.0 31.8-35.4 [facility], [address] [place] [address] E Hemoglobin Concent 2018 g/dL Bern[place] [address] 10:45am Mean Corpuscular January 30.4 31.8-35.4 [facility], [address] [place] [address] E Hemoglobin Concent 2018 g/dL [place] 65[address] 6:35pm Mean Corpuscular February 30.8 31.8-35.4 [facility], [address] [place] [address] E Hemoglobin Concent 2018 g/dL C tavonangeliquecarrol [place] 05198 12:00pm Red Cell Saline 15.5 % 11.5-17.5 [facility], [address] [place] [address] E Distribution Width 2018 Bern[place] 61081 10:45am Red Cell October 15.4 % 11.5-17.5 [facility], [address] [place] [address] E Distribution Width 2018 [place] [address] 6:35pm Red Cell February 14.9 % 11.5-17.5 [facility], [address] [place] [address] E Distribution Width 2018 Jatinder mitch [place] [address] 12:00pm Platelet Count November 293 142-424 [facility], [address] [place] [address] E 2018 K/mm3 [place] [address] 10:45am Platelet Count January 193 142-424 [facility], [address] [place] [address] E 2018 K/mm3 [place] [address] 6:35pm Platelet Count February 181 142-424 [facility], [address] [place] [address] E 2018 K/mm3 [place] [address] 12:00pm Mean Platelet November 8.7 fl 7.4-10.4 [facility], [address] [place] [address] E Volume 2018 [place] [address] 10:45am Mean Platelet January 8.8 fl 7.4-10.4 [facility], [address] [place] [address] E Volume 2018 [place] [address] 6:35pm Mean Platelet February 8.7 fl 7.4-10.4 [facility], [address] [place] [address] E Volume 2018 [place] [address] 12:00pm Neutrophils (%) November 83.1 % 37.0-80.0 [facility], [address] [place] [address] E (Auto) 2018 [place] [address] 10:45am Neutrophils (%) January 69.9 % 37.0-80.0 [facility], [address] [place] [address] E (Auto) 2018 [place] [address] 6:35pm Neutrophils (%) February 77.3 % 37.0-80.0 [facility], [address] [place] [address] E (Auto) 2018 [place] [address] 12:00pm Lymphocytes (%) November 13.1 % 10-50 [facility], [address] [place] [address] E (Auto) 2018 [place] [address] 10:45am Lymphocytes (%) January 24.9 % -50 [facility], [address] [place] [address] E (Auto) 2018 [place] [address] 6:35pm Lymphocytes (%) February 17.3 % -50 [facility], [address] [place] [address] E (Auto) 2018 [place] [address] 12:00pm Monocytes (%) November 2.8 % 1.7-9.3 [facility], [address] [place] [address] E (Auto) 2018 [place] [address] 10:45am Monocytes (%) January 2.8 % 1.7-9.3 [place] on [facility], [address] [place] [address] E (Auto) 2018 [place] [address] 6:35pm Monocytes (%) February 3.3 % 1.7-9.3 [place] [address] E (Auto) 2018 [place] [address] 12:00pm Eosinophils (%) November 0.7 % 0.1-12.0 [place] [address] E (Auto) 2018 [place] [address] 10:45am Eosinophils (%) January 1.8 % 0.1-12.0 [facility], [address] [place] [address] E (Auto) 2018 [place] [address] 6:35pm Eosinophils (%) February 1.5 % 0.1-12.0 [place] [address] E (Auto) 2018 [place] [address] 12:00pm Basophils (%) November 0.3 % 0.1-2.0 [facility], [address] [place] [address] E (Auto) 2018 [place] [address] 10:45am Basophils (%) January 0.7 % 0.1-2.0 [place] [address] E (Auto) 2018 [place] [address] 6:35pm Basophils (%) February 0.6 % 0.1-2.0 [place] [address] E (Auto) 2018 [place] [address] 12:00pm Neutrophils # November 6.7 1.8-7.8 [facility], [address] [place] [address] E (Auto) 2018 K/mm3 [place] [address] 10:45am Neutrophils # January 4.4 1.8-7.8 [place] on [facility], [address] [place] [address] E (Auto) 2018 K/mm3 [place] [address] 6:35pm Neutrophils # February 5.0 1.8-7.8 [place] on [facility], [address] [place] [address] E (Auto) 2018 K/mm3 [place] [address] 12:00pm Lymphocytes # November 1.1 0.7-4.5 [place] on [facility], [address] [place] [address] E (Auto) 2018 K/mm3 [place] [address] 10:45am Lymphocytes # January 1.6 0.7-4.5 [place] on [facility], [address] [place] [address] E (Auto) 2018 K/mm3 Bernardo [place] [address] 6:35pm Lymphocytes # February 1.1 0.7-4.5 [place] on [facility], [address] [place] [address] E (Auto) 2018 K/mm3 [place] [address] 12:00pm Monocytes # (Auto) November 0.2 0.1-1.0 [facility], [address] [place] [address] E 2018 K/mm3 [place] [address] 10:45am Monocytes # (Auto) January 0.2 0.1-1.0 [facility], [address] [place] [address] E 2018 K/mm3 [place] [address] 6:35pm Monocytes # (Auto) February 0.2 0.1-1.0 [facility], [address] [place] [address] E 2018 K/mm3 Bernardo [place] [address] 12:00pm Eosinophils # November 0.1 0.0-0.4 [place] on [facility], [address] [place] [address] E (Auto) 2018 K/mm3 [place] [address] 10:45am Eosinophils # January 0.1 0.0-0.4 [place] on [facility], [address] [place] [address] E (Auto) 2018 K/mm3 [place] [address] 6:35pm Eosinophils # February 0.1 0.0-0.4 [facility], [address] [place] [address] 36 E (Auto) 2018 K/mm3 [place] [address] 12:00pm Basophils # (Auto) November 0.0 0-0.2 [facility], [address] [place] [address] E 2018 K/mm3 [place] [address] 10:45am Basophils # (Auto) January 0.0 0-0.2 [facility], [address] [place] [address] E 2018 K/mm3 [place] [address] 6:35pm Basophils # (Auto) February 0.0 0-0.2 [facility], [address] [place] [address] 36 2018 K/mm3 [place] [address] 12:00pm Troponin I January < 0.02 0.00-0.06 *ALERT* [facility], [address] [place] [address] 36 E 2018 ng/[place] [address] 9:05pm Biotin can falsely depress Troponin results.Many dietary supplements promoted for hair,skin, and nail benefits contain biotin levels up to 650 times the recommended daily intake of biotin. In additon to dietary supplements, Biotin is occasionally prescribed for medical conditions. Troponin I February < 0.02 0.00-0.06 *ALERT* [facility], [address] [place] [address] 2018 ng/[place] [address] 8:09pm Biotin can falsely depress Troponin results.Many dietary supplements promoted for hair,skin, and nail benefits contain biotin levels up to 650 times the recommended daily intake of biotin. In additon to dietary supplements, Biotin is occasionally prescribed for medical conditions. Sodium Level November 140 136-145 [facility], [address] [place] [address] 36 E 2018 mmol/[place] [address] 10:45am Sodium Level January 141 136-145 [facility], [address] [place] [address] E 2018 mmol/[place] [address] 6:35pm Sodium Level February 142 136-145 [facility], [address] [place] [address] 36 E 2018 mmol/[place] [address] 6:24am Potassium Level November 4.3 3.5-5.1 [facility], [address] [place] [address] 36 E 15[address], 2019 mmoL/[place] [address] 10:45am Potassium Level January 3.7 3.5-5.1 [facility], [address] [place] [address] 36 E , 2018 mmoL/[place] [address] 6:35pm Potassium Level February 3.4 3.5-5.1 [facility], [address] [place] [address] 36 E , 2018 mmoL/[place] [address] 6:24am Chloride Level November-107 [facility], [address] [place] [address] 36 E 2018 mmol/[place] [address] 10:45am Chloride Level January107 [facility], [address] [place] [address] 36 E 2018 mmol/[place] [address] 6:35pm Chloride Level February107 [facility], [address] [place] [address] 36 E 2018 mmol/[place] [address] 6:24am Carbon Dioxide December 19 21.0-32.0 [facility], [address] [place] [address] E Level 2018 mmol/[place] [address] 10:45am Carbon Dioxide February 27 21.0-32.0 [facility], [address] [place] [address] 36 E Level 2018 mmol/[place] [address] 6:35pm Carbon Dioxide March 29 21.0-32.0 [facility], [address] [place] [address] 36 E Level 2018 mmol/[place] [address] 6:24am Anion Gap November 22.3 09-11 [facility], [address] [place] [address] 36 E 2018 mEq/[place] [address] 10:45am Anion Gap January 8.7 09-11 [facility], [address] [place] [address] 36 E 2018 mEq/[place] [address] 6:35pm Anion Gap February 13.4 09-11 [facility], [address] [place] [address] 36 E 2018 mEq/[place] [address] 6:24am Blood Urea November 9 mg/dL 11-14 [facility], [address] [place] [address] 36 E Nitrogen 2018 [place] [address] 10:45am Blood Urea January 9 mg/dL 11-14 [facility], [address] [place] [address] 36 E Nitrogen 2018 [place] [address] 6:35pm Blood Urea March 1411-14 Delta: 10 on [facility], [address] [place] [address] 36 E Nitrogen 92018 mg/dL 03/07/19-1200 [place] [address] 6:24am Creatinine November 1.21 0.55-1.02 [facility], [address] [place] [address] 36 E 2018 mg/[place] [address] 10:45am Creatinine January 0.76 0.55-1.02 [facility], [address] [place] [address] 36 E 2018 mg/[place] [address] 6:35pm Creatinine February 0.74 0.55-1.02 [facility], [address] [place] [address] 36 E 2018 mg/[place] [address] 6:24am Estimated November 60 0-300 [facility], [address] [place] [address] 36 E Creatinine 2018 mL/[place] [address] Clearance 10:45am Estimated January 0-300 [facility], [address] [place] [address] E Creatinine 2018 mL/[place] [address] Clearance 6:35pm Estimated February 0-300 [facility], [address] [place] [address] E Creatinine 2018 mL/[place] [address] Clearance 6:24am Estimated GFR November 58 >59 [facility], [address] [place] [address] E () 2018 ML/[place] [address] 10:45am Estimated GFR January 100 >59 [facility], [address] [place] [address] 36 E () 2018 ML/[place] [address] 6:35pm Estimated GFR February 103 >59 [facility], [address] [place] [address] E () 2018 ML/[place] [address] 6:24am Estimat Glomerular November 48 >59 [facility], [address] [place] [address] E Filtration Rate 2018 ml/[place] [address] 10:45am Estimat Glomerular January 83 >59 [facility], [address] E Filtration Rate 2018 ml/min Cora antony [place] [address] 6:35pm Estimat Glomerular February >59 [facility], [address] [place] [address] 36 E Filtration Rate 2018 ml/min Cynmaia [place] [address] 6:24am Glucose Level November 159 74-106 [facility], [address] [place] [address] 36 E 2018 mg/dL Bernardo [place] [address] 10:45am Glucose Level January 145 74-106 [facility], [address] [place] [address] 36 E 2018 mg/dL Bern[place] [address] 6:35pm Glucose Level February 111 74-106 [facility], [address] [place] [address] 36 E 2018 mg/dL [place] [address] 6:24am Calcium Level November 9.5 8.5-10.1 [facility], [address] [place] [address] 36 E 2018 mg/dL [place] [address] 10:45am Calcium Level January 8.5 8.5-10.1 [facility], [address] [place] [address] 36 E 2018 mg/dL [place] [address] 6:35pm Calcium Level February 9.2 8.5-10.1 [facility], [address] [place] [address] 36 E 2018 mg/dL [place] [address] 6:24am Total Bilirubin November 0.7 0.2-1.0 [facility], [address] [place] [address] 36 E 2018 mg/dL [place] [address] 10:45am Aspartate Amino November 32 U/L 15-37 [facility], [address] [place] [address] 36 E Transf (AST/SGOT) 2018 C yntcarrol [place] [address] 10:45am Alanine November 35 U/L 12-78 [facility], [address] [place] [address] 36 E Aminotransferase 2018 Cy ntcarrol [place] [address]195 (ALT/SGPT) 10:45am B-Type Natriuretic February 42 0-100 [facility], [address] [place] [address] E Peptide 2018 pg/mL [place] [address] 12:00pm Total Protein November 9.4 6.4-8.2 [facility], [address] [place] [address] 36 E 2018 gm/dL [place] [address] 10:45am Albumin November 4.0 3.4-5.0 [facility], [address] E 2018 gm/[place] [address] 10:45am Globulin November 5.4 1.3-3.2 [facility], [address] 2018 gm/dl [place] [address] 10:45am Albumin/Globulin November 0.7 1.1-1.8 [facility], [address] Ratio 2018 [place] [address] 10:45am Alkaline November 113 U/L 46-116 [facility], [address] [place] [address] 36 E Phosphatase 2018 [place] [address] 10:45am Lipase November 80 u/L 73-393 [facility], [address] [place] [address] 36 E 2018 [place] [address] 10:45am Diagnostic Imaging Reports Report Dictated Date/Time Dictated By Status Radiology Report December 12, 2018 Ernie Finn MD completed 12:34pm [address] [place] [address] [address] Scan Report Sig pedro Patient: Mojgan Kaur MR#: [id number] : 1975 Acct:[id number] Age/Sex: 43 / F ADM Date: 9 Loc: ER Attending Dr: Ordering Physician: Jude Belle MD Date of Service: 12/12/18 Procedure(s): CT abdomen pelvis w con Accession Number(s): [id number] cc: Ernie Finn MD; Sean Fonseca ~ PROCEDURE: CT ABDOMEN PELVIS W CON CLINICAL INDICATION: abdo pain, vomiti ng, blood diarrhe, has crohn's dz IN HEARD COMPARISON: No exams were available fo r comparison TECHNIQUE: IV Contrast: 75ML OPTIRAY 3 50 Oral Contrast NONE Axial images obtained with sagittal and coronal reformats. All CT scans at the facility use one or more d ose reduction, viz: automated exposure control, ma/kV adjustment per patient size (including targeted exams where dose is matched to indication, i.e. head), or iterative reconstruction technique. FINDINGS: Lower thorax: No acute finding Fatty liver. The spleen, adrenal gland s, pancreas, and kidneys have an unremarkable appearance. No evidenc e of appendicitis or diverticulitis. There is mild mucosal thickening of the sigmoid colon and rectum which could be due to nondistention or mild colitis. There diastasis of the anterior abdomi nal wall superior to the umbilicus. No acute bony anomalies. IMPRESSION: Possible colitis of the rectosigmoid ot herwise negative Dictated by: Ernie Finn MD 12/12 12:51 Signed by: <Electronically signed by Ernie Finn MD in [place]> 12/12/2018 12:51 Radiology Report February 19, 2019 Ernie Finn MD completed 6:39pm [facility] [address] [place] [facility] [address] [place] [address] XRay R eport Sig pedro Patient: Mojgan Kaur MR#: [id number] : 1975 Acct:[id number] Age/Sex: 43 / F ADM Date: 9 Loc: ER Attending Dr: Ordering Physician: Julee Stacy MD Date of Service: 02/19/19 Procedure(s): XR chest 2V Accession Number(s): [id number] cc: Ernie Finn MD; Provider,Referral MD~ PROCEDURE: XR CHEST 2V CLINICAL HISTORY: chest pain Chest pain, shortness of air COMPARISON: CXR1 CHEST-PORTABLE from 09/22/2012 CXR CHEST(2 VIEWS-NOT PORTABLE) from 01/17/2016 CXR1 CHEST-PORTABLE fro m 01/17/2016 CT ABDOMEN PELVIS W CON from 12/12/2018 FINDINGS: The cardiomediastinal silhouette and pu lmonary vascularity are within normal limits. No lobar consolidation or collapse is e vident. On the lateral view there is a 9 mm nodular opacity overlyi ng the middle aspect of the heart. Possibly due to a granuloma. C onsider follow-up for confirmation. No acute bony abnormalities. IMPRESSION: No acute finding. Nodular opacity overlying the heart on the lateral view possibly due to granuloma. Suggest follow-up to con firm stability. CT may also confirm Dictated by: Ernie Finn MD 02/20/2019 04:15 Electronically signed by Ernie Finn in [place] 02/20/2019 04:15 Radiology Report March 07, 2019 Ernie Finn MD completed 12:31pm [facility] [address] [place] [facility] [address] [place] [address] XRay R eport Sig pedro Patient: Mojgan Kaur MR#: [id number] : 1975 Acct:[id number] Age/Sex: 43 / F ADM Date: 9 Loc: 209- Attending Dr: Lewis Gates MD Ordering Physician: Jude Belle MD Date of Service: 03/07/19 Procedure(s): XR chest portable Accession Number(s): [id number] cc: Ernie Fnin MD; Lewis Gates MD~ PROCEDURE: XR CHEST PORTABLE CLINICAL HISTORY: pain chest pain, COMPARISON: CXR CHEST(2 VIEWS-NOT PORT ABLE) from 01/17/2016 CXR1 CHEST-PORTABLE fro m 01/17/2016 XR CHEST 2V from 02/19/2019 FINDINGS: The cardiomediastinal silhouette and pu lmonary vascularity are within normal limits. The lungs are clear without infiltrates , suspicious nodules, or pleural effusions. No acute bony abnormalities. IMPRESSION: No acute findings. Dictated by: Ernie Finn MD 03/07/2019 15:36 Electronically signed by Ernie Finn in [place] 03/07/2019 15:36 Health Concerns Concerns chest pain Advance Directives Advance Directive Response Recorded Date/Time Living Will No March 07, 2019 2 :56pm Does the patient have an No March 07 019 11:39am advanced directive on file? Living Will No March 07, 2019 1 1:39am Chief Complaint and Reason for Visit Chief Complaint vomiting,can't eat or sleep 2 days chest pain New Patient chest pain Reason for Visit Chronic back pain greater th an 3 months duration Edema LVH (left ventricular hypert rophy) Mild concentric left ventric ular hypertrophy (LVH) Neuropathy Unstable angina Encounters Encounter Location(s) Arrival/Admit Date Discharge/Depart Date Provider(s) Departed [facility] Physician December 12, 2018 December 12, 2018 null Emergency Group-Emergency 10:17am 2:03pm Room Departed [facility] Physician February 19, 2019 February 19, 2019 nu ll Emergency Group-Emergency 6:19pm 10:21pm Room Departed [facility] Physician March 07, 2019 March 07, 2019 [facility] Zamudio , Physician/Provi Group-Primary 10:43am 3:31pm PSYCHIATRIC CLINICAL NURSE SPECIALIST [facility] Visit Discharged [facility] Physician March 07, 2019 March 08, 2019 Kyleigh archuleta S Inpatient Group-Second 3:56pm 10:31am MD [place] Floor Registered [facility] Physician March 10, Lewis S Inpatient Group- 2018 3:05pm MD Kody Recent Diagnosis Onset Date Chronic back pain greater than 3 months duration Edema LVH (left ventricular hypertrophy) Mild concentric left ventricular hypertrophy (LVH) Neuropathy Unstable angina Assessments See care plan goals Functional Status Observation Response Date Recorded Oral Care Ability Independent March 07, 2019 2 :56pm Bathing Ability Independent March 07, 2019 2 :56pm Eating (Feeding) Ability Independent March 07 019 2:56pm Toileting Ability Independent March 07, 2019 2 :56pm Ambulation Ability Independent March 08, 2019 1 0:00am Functional status ambulatory March 07, 2019 1 1:39am Goals Acute Goals Nursing Diagnosis: Knowledge Deficit D isease/Condition Goal(s): Education of di sease process Instruction(s): Follow provider p hermilo/instructions (See attached discharge education) Follow/up with primary care provider as instructed in discharge packet Ambulatory Goals Pt. verbalized understanding of disease process/healthy behavior/Pt. to follow plan of care/education provided Mental Status Observation Response Date Recorded Comprehension Ability No Impairment March 08, 2019 9:40am Able to Read Yes March 07, 2019 2 :56pm Able to Write Yes March 07, 2019 2 :56pm Ability to Follow Directions Excellent February 2:56pm Oral Expression Ability No Impairment March 07 2:56pm Medical Equipment No Medical Equipment Information available Insurance Providers Guarantor Mojgan Kaur Address [address] [facility] [address] Contact Info. Home Phone: Payer Policy Id Coverage Id Subscriber's Subscriber Id Effective E xpiration Name Date Date Medicare [id number] Mojgan Kaur [id number] Self Pay Self N/A [facility] [id number] Health Plan M[employer] Plan of Treatment Follow up as ordered by primary care provider Future Tests Future scheduled test information is unavailable Pending Tests Pending diagnostic test information is unavailable Future Visits Future appointment information is unavailable Referrals to Other Providers Reason for Referral Start Provider Provider Contact Provider Address Referral Date Information Admission to [facility] March 102018 [facility] Future Procedures Future procedure information is unavailable Future Medications Future medication information is unavailable Patient Instructions DI for Dehydration -- Adult DI for Abdominal Pain-Adult DI for Diarrhea and Traveler's Diarrhea -- Adult Nausea and Vomiting-Adult DI for Atypical Chest Pain Essential Hypertension Balanced Diet Edema (Alternative Therapy) DI for Chronic Pain -- Adult Social History Observation Status Date of Observation Not March 07, 2019 Assigned Sex Female Vital Signs Vital Reading Result Reference Range Collection Date/ Time Height 172.72 cm December 12 9 10:38am Weight 146.05 kg December 12 9 10:38am Body Temperature 98.1 [degF] 97.6-99.6 December 12 1:53pm Heart Rate 81 /min 60-90 December 12 201 9 1:53pm Respiratory rate 18 /min -December 12 1:53pm Oxygen saturation by 100 % 95-100 November Pulse oximetry 10:38am BP Systolic 156 mm[Hg] 110-140 December 12 201 9 1:53pm BP Diastolic 90 mm[Hg] 60-90 December 12 201 9 1:53pm BMI (Body Mass Index) 48.9 kg/m2 November 10:38am Height 170.18 cm February 19 6:19pm Weight 151.95 kg February 19 6:19pm Body Temperature 98.0 [degF] 97.6-99.6 February 19, 2 019 10:18pm Heart Rate 88 /min 60-90 February 19 10:18pm Respiratory rate 18 /min -February 19, 2 019 10:18pm Oxygen saturation by 100 % 95-100 January Pulse oximetry 6:19pm BP Systolic 156 mm[Hg] 110-140 February 19 10:18pm BP Diastolic 78 mm[Hg] 60-90 February 19 10:18pm BMI (Body Mass Index) 52.4 kg/m2 February 192018 6:19pm Height 170.18 cm March 07 10:45am Weight 156.48 kg March 07 10:45am Body Temperature 98.5 [degF] 97.6-99.6 March 07, 2 019 10:45am Heart Rate 88 /min 60-March 07 10:45am Respiratory rate 24 /min -March 07, 2 019 10:45am Oxygen saturation by 98 % 95-100 February Pulse oximetry 10:45am BP Systolic 148 mm[Hg] 110-140 March 07 10:48am BP Diastolic 90 mm[Hg] 60-March 07 10:48am BMI (Body Mass Index) 54.0 kg/m2 March 072018 10:45am Height 170.18 cm March 07 2:56pm Weight 153.00 kg March 07 2:56pm Body Temperature 98.0 [degF] 97.6-99.6 March 08, 2 019 8:00am Heart Rate 80 /min -March 08 8:00am Respiratory rate 18 /min 04-22March 08, 2 019 8:00am Oxygen saturation by 96 % 95-100 February Pulse oximetry 8:00am BP Systolic 144 mm[Hg] 110-140 March 08 8:00am BP Diastolic 79 mm[Hg] 60-90 March 08 8:00am BMI (Body Mass Index) 52.8 kg/m2 March 072018 2:56pm Hospital Discharge Instructions Additional Instructions See Dr. Fonseca tomorrow as scheduled. Drink plenty of fluids. Zofran as needed for nausea and vomiting. Additional instructions for VOMITING/DIARRHEA: See your physician as soon as possible for further evaluation. Return immediately if severe abdominal pain, uncontrollable vomiting, shortness of breath, fever, vomiting of blood or abdominal distention. Additional instructions for ABDOMINAL PAIN: See your physician as soon as possible for further evaluation. Return immediately if worsening abdominal pain, vomiting, shortness of breath, fever, vomiting of blood or abdominal distention.
== END 2019-03-08 10:31 | disposition home or self-care (01) ==
LOC: ER 11:56 → 2ND 11:56
PROVIDERS: ADMIT Emergency Medicine; ATTEND Emergency Medicine
CPT/HCPCS: 36415; 71010; 71045; 80048; 83880; 84484; 85025; 93005; 93306; 96374; 99284; G0378

== ENCOUNTER 2019-05-17 19:58 | Observation (INO) ==
--- NOTE | 2019-05-17 20:23 | Emergency Department Note ---
ED Disposition Clinical Impression: Morbid obesity with BMI of 50.0-59.9, adult, Diabetes mellitus type 2 in obese Chest pain Qualifiers: Chest pain type: precordial pain Qualified Code(s): R07.2 - Precordial pain Disposition: Admitted as Observation Condition on Discharge: Good Referrals: Provider,Referral, [Referring] - - Critical Care Critical Care Time: No Attestation: On 05/17/19, the high probability of a clinically significant, sudden or life threatening deterioration of the following system(s) required my full and direct attention, intervention and personal management. The time I documented below is in addition to time spent performing reported procedures but includes the following listed in this critical care notation. Medical Decision Making - Medical Records Medical records reviewed: Yes: I reviewed the patient's medical records. - Fredi Inquiry Pt receiving controlled substance: No Vital Signs: 05/17/19 19:58 Temperature 98.9 F Temperature Source Oral Pulse Rate [Left Radial] 76 Respiratory Rate 16 Blood Pressure [Right Arm] 125/63 Blood Pressure Mean [Right Arm] 83 Blood Pressure Source [Right Arm] Automatic Cuff Blood Pressure Position [Right Arm] Sitting 02 Sat by Pulse Oximetry 97 Oxygen Delivery Method Room Air - Lab Data Lab results reviewed: Yes: I reviewed the patient's lab results. Lab Results 05/17/19 21:00: WBC 6.2, RBC 4.25, Hgb 12.0 L, Hct 38.5, MCV 90.6, MCH 28.4, MCHC 31.3 L, RDW 14.7, Plt Count 175, MPV 8.5, Neut % (Auto) 70.6, Lymph % (Auto) 20.5, Tompkins % (Auto) 2.8, Eos % (Auto) 5.8, Baso % (Auto) 0.3, Neut # (Auto) 4.4, Lymph # (Auto) 1.3, [place]kins # (Auto) 0.2, Eos # (Auto) 0.4, Baso # (A uto) 0.0 05/17/19 21:00: Sodium 140, Potassium 4.2, Chloride 104, Carbon Dioxide 30, Anion Gap 10.2, BUN 17, Creatinine 1.54 H, Estimated Creat Clear 45, Estimated GFR 37 L, Est GFR ( Amer) 44 L, Glucose 95, Calcium 8.4 L, Troponin I < 0.02 Result diagrams: 05/17/19 21:00 05/17/19 21:00 Orders (Tests/Meds): ED MEDICATIONS Generic Name Dose Route Start Last Admin Trade Name Freq PRN Reason Stop Dose Admin Sodium Chloride 1,000 mls @ 999 mls/hr 05/17/19 20:15 05/17/19 21:19 Sod Chlor 0.9% 1000ml Bag IV 05/17/19 21:15 999 mls/hr .Q1H1M VIVIEN Administration Discontinued Medications Generic Name Dose Route Start Last Admin Trade Name Freq PRN Reason Stop Dose Admin Aspirin 243 mg 05/17/19 20:12 05/17/19 20:49 Aspirin 81mg Chewable Tablet PO 05/17/19 20:13 243 mg ONCE ONE Administration Nitroglycerin 1 gm 05/17/19 21:40 05/17/19 21:46 Nitroglycerin 1 Inch Oint Udp TD 05/17/19 21:41 1 gm ONCE ONE Administration ORDERS Category Date Time Status XR chest 2V Stat Exams 05/17/19 20:11 Taken Troponin I Q3H Lab 05/17/19 23:15 Ordered Troponin I Q3H Lab 05/18/19 02:15 Ordered Urinalysis and Microscopic Stat Lab 05/17/19 20:11 Ordered - Radiology Data #1 Image(s): Chest Image Reviewed: Yes I reviewed the patient's radiology image Preliminary Findings: Normal/NAD - ECG Data Tracing #1 Normal Sinus Rhythm: Yes Ischemic changes: non-specific ST-T wave changes Chest Pain HPI - General Chief Complaint: Chest Pain Stated Complaint: chest pain Time Seen by Provider: 05/17/19 20:22 Mode of Arrival: Ambulatory Source of Information: Patient, Relative, Medical Record Limitations: No Limitations Description of Symptoms (Recalled from ER Triage Doc. by RN): pt stated she has had chest pain for the last two hours. pt describes the pain as a pressure rating a 6 on a 0-10 scale. pt stated she took 3 nitro SL and an 81mg aspirin at home but had no relief. - History of Present Illness HPI narrative: pt with lt ant chest pain with rad to lt upper ext - has been seen by card with cath in past - no stents - - pt with diabetes - no tob MD complaint: chest pain indicative of cardiac Onset (ago): hour(s) Duration: constant Activity at onset: during rest Pain location: left chest Severity: similar to previous episodes Quality: tightness Pain radiation: LUE Associated symptoms: nausea Risk Factors for CAD: Hypertension, Hypercholesterolemia, Family Hx of CAD, Diabetes Treatments prior to or on arrival for Cardiac Chest Pain: aspirin, nitroglycerin - MICHELLE Score for Non-Stemi Age of Patient: 40-49 years old Heart Rate: 70-89 bpm Systolic Blood Pressure: 120-139 mmhg Serum Creatinine: 1.20-1.59 mg/dl CHF Killip Class: I-No CHF Other Risk Factors: None Non-Stemi Risk Score: 78 - Related Data Prior Cardiac Testing/Procedures: Cardiac Angiogram On Oral Contraceptives: No Home Medications Medication Instructions Recorded Confirmed Atorvastatin Calcium [Lipitor 40mg 40 mg PO HS 12/12/18 05/17/19 Tablet] Albuterol Sulfate [Proventil-HFA 2 puffs IH QIDP PRN 03/07/19 05/17/19 90mcg/puff Inh] Diclofenac Sodium [Voltaren 100gm 2 g TOPICAL QID 05/17/19 05/17/19 Topical Gel] Gabapentin [Gabapentin 300mg Cap] 800 mg PO TID 05/17/19 05/17/19 Irbesartan [Avapro 150mg 150 mg PO DAILY 05/17/19 05/17/19 tablet] Spironolactone [Spironolactone 25 mg PO DAILY 05/17/19 05/17/19 25mg Tablet] Previous Rx's Medication Instructions Recorded hydrocodone 5 mg-acetaminophen 325 1 tab PO BID PRN #42 tab 03/11/19 mg tablet aspirin 81 mg tablet,delayed 81 mg PO DAILY #90 tab 05/16/19 release cholecalciferol (vitamin D3) 25 2,000 unit PO DAILY #90 cap 05/16/19 mcg (1,000 unit) capsule furosemide 40 mg tablet 40 mg PO DAILY #30 tab 05/16/19 loratadine 10 mg tablet 10 mg PO DAILY #90 tab 05/16/19 omeprazole 40 mg capsule,delayed 40 mg PO BID #180 cap 05/16/19 release sertraline 50 mg tablet 50 mg PO DAILY #90 tab 05/16/19 trazodone 150 mg tablet 150 mg PO HS #90 tab 05/16/19 Allergies Allergy/AdvReac Type Severity Reaction Status Date / Time pregabalin [From Lyrica] Allergy Severe Anaphylaxis Verified 05/17/19 21:24 ketorolac [From TORADOL] Allergy Unknown UNKNOWN Verified 05/17/19 21:24 metoclopramide [From REGLAN] Allergy Unknown UNKNOWN Verified 05/17/19 21:24 Sulfa (Sulfonamide Allergy Unknown REGLAN Verified 05/17/19 21:24 Antibiotics) [SULFA (SULFONAMIDE ANTIBIOTICS)] tramadol [TRAMADOL] Allergy Unknown UNKNOWN Verified 05/17/19 21:24 [facility] History - Hepatitis A Screen Drug use history?: No High risk sexual behaviors?: No History of sexually transmitted infection?: No Currently employed?: No Childcare worker?: No Do you have indoor plumbing?: Yes Do you have electricity?: Yes Attestation statement:: This patient has been screened for Hepatitis A risk factors. I have reviewed the patient's past medical history: Yes Medical History: Reports:: Asthma, Depression, Diabetes Mellitus Type 2, Gall Bladder Disease, Hyperlipidemia, Hypertension Denies:: Cancer, Diabetes Mellitus Type 1, MRSA Other Medical History: Reports: Anemia, Liver Disease Comment: chrons disease Other Surgeries: Yes: Cardiac Catheterization, Cholecystectomy, Colonoscopy, EGD, Hernia Repair Amputation: No Fractures: No - Social History Smoking Status: Former smoker Tobacco Type: cigarettes # Packs/Day (cigarettes): 1 #Yrs smoked (if former smoker): 1 Alcohol Intake: never Alcohol Intake Frequency:: holidays/special occasions only Substance Use Type: denies use Occupational Status: disabled Housing: apartment Household Members: spouse - Psychiatric History Pschychiatric History:: Reports:: Depression Family Hx:: Cancer, Diabetes, Heart Attack, Hypertension ROS Obtained: Yes All systems reviewed & no additional complaints - Constitutional Constitutional: Denies fever(s) - Eyes Eyes: Denies change in vision - ENT Ears, Nose, Mouth, and Throat: Denies sore throat - Cardiovascular Cardiovascular: Reports chest pain, Denies dyspnea - Respiratory Respiratory: No cough - Gastrointestinal Gastrointestingal: Denies: abdominal pain - Genitourinary Female Genitourinary: Denies hematuria - Musculoskeletal Musculoskeletal: Denies joint pain, Denies joint swelling - Integumentary/Breasts Skin/Breast: Denies rash - Neurologic Neurologic: Denies seizure-like activity Physical Exam - General General appearance: alert, obese - Head Head exam: normocephalic - Eye Eye exam: Present: PERRL, EOMI. Absent: scleral icterus - ENT ENT exam: Present: mucous membranes moist - Neck Neck exam: Present: trachea midline - Respiratory Respiratory exam: Present: normal lung sounds bilaterally. Absent: respiratory distress - Cardiovascular Cardiovascular exam: Present: regular rate, systolic murmur. Absent: rubs - Abdominal Exam Abdominal exam: Present: soft - Extremities Exam Extremities exam: Present: full ROM. Absent: calf tenderness - Neurological Exam Neurological exam: Present: alert, oriented X3, CN II-XII intact - Psychiatric Psychiatric exam: Present: normal affect - Skin Skin exam: Absent: rash
[2019-05-17 21:08] LABS: Basophils % 0.3 % (0.1-2.0); Eosinophils # 0.4 K/mm3 (0.0-0.4); Eosinophils % 5.8 % (0.1-12.0); Hematocrit 38.5 % (37.0-47.0); Lymphocytes # 1.3 K/mm3 (0.7-4.5); Lymphocytes % 20.5 % (10-50); Mean Corpuscular HGB Conc 31.3 g/dL (31.8-35.4); Mean Corpuscular Volume 90.6 fl (81-99); Mean Platelet Volume 8.5 fl (7.4-10.4); Monocytes # 0.2 K/mm3 (0.1-1.0); Monocytes % 2.8 % (1.7-9.3); Neutrophils # 4.4 K/mm3 (1.8-7.8); Neutrophils % 70.6 % (37.0-80.0); Platelet Count 175 K/mm3 (142-424); Red Blood Count 4.25 M/mm3 (4.20-5.40); Red Cell Distribution Width 14.7 % (11.5-17.5); White Blood Count 6.2 K/mm3 (4.8-10.8)
[2019-05-17 21:22] LABS: Anion Gap 10.2 mEq/L (5-15); Blood Urea Nitrogen 17 mg/dL (7-18); Calcium 8.4 mg/dL (8.5-10.1); Carbon Dioxide 30 mmol/L (21.0-32.0); Chloride 104 mmol/L (98-107); Glucose 95 mg/dL (74-106); Sodium 140 mmol/L (136-145)
[2019-05-18 00:17] LABS: Microscopic, Urine URINE MICROSCOPIC (MICROSCOPIC)
[2019-05-18 00:35] LABS: Appearance,Urine SL CLOUDY (Clear); Bilirubin,Urine Negative (Negative); Blood, Urine Negative (Negative); Color,Urine YELLOW (Yellow); Glucose,Urine (UA) Negative (Negative); Ketones,Urine Negative (Negative); Leukocyte Esterase,Urine TRACE (Negative); PH,Urine 5.5 (5.0-8.5); Protein,Urine Negative (Negative); Specific Gravity, Urine >= 1.030 (1.005-1.030); Urobilinogen,Urine 0.2 EU/dl (0.2)
[2019-05-18 00:47] LABS: Squamous Epithelial Cell,Urine 20-50 #/hpf (0-5)
[2019-05-18 03:51] LABS: Basophils % 0.3 % (0.1-2.0); Eosinophils # 0.3 K/mm3 (0.0-0.4); Hematocrit 37.2 % (37.0-47.0); Hemoglobin 11.7 g/dL (12.2-16.2); Lymphocytes # 0.8 K/mm3 (0.7-4.5); Lymphocytes % 13.2 % (10-50); Mean Corpuscular HGB Conc 31.4 g/dL (31.8-35.4); Mean Corpuscular Volume 88.5 fl (81-99); Mean Platelet Volume 8.4 fl (7.4-10.4); Monocytes # 0.1 K/mm3 (0.1-1.0); Monocytes % 2.2 % (1.7-9.3); Neutrophils % 80.3 % (37.0-80.0); Platelet Count 168 K/mm3 (142-424); Red Blood Count 4.21 M/mm3 (4.20-5.40); Red Cell Distribution Width 14.5 % (11.5-17.5); White Blood Count 6.2 K/mm3 (4.8-10.8)
[2019-05-18 04:13] LABS: Anion Gap 16.1 mEq/L (5-15); Calcium 8.1 mg/dL (8.5-10.1)
[2019-05-18 08:42] LABS: Chol/HDL Ratio 4.2 (1-3.5)
--- NOTE | 2019-05-18 08:49 | History & Physical Report ---
*Admission Date: 05/17/19 *Chief complaint: chest pain *History of present illness: this wf presented to the ed last pm with chesst pain with rad to lt upper ext stated she has had chest pain for the last two hours. pt describes the pain as a pressure rating a 6 on a 0-10 scale. pt stated she took 3 nitro SL and an 81mg aspirin at home but had no relief. pt was admitted for [facility] History I have reviewed the patient's past medical history: Yes Medical History: Reports:: Asthma, Depression, Diabetes Mellitus Type 2, Gall Bladder Disease, Hyperlipidemia, Hypertension Denies:: Cancer, Diabetes Mellitus Type 1, MRSA *Have you ever received a pneumonia vaccine?: Yes (2018) *Have you received a flu vaccine this season?: Yes (2019) Other Medical History: Reports: Anemia, Liver Disease Other Surgeries: Yes: Cardiac Catheterization, Cholecystectomy, Colonoscopy, EGD, Hernia Repair Amputation: No Fractures: No - *Social History Educational Level: Attended High School Smoking Status: Former smoker Tobacco Type: cigarettes # Packs/Day (cigarettes): 1 #Yrs smoked (if former smoker): 23 Alcohol Intake: never Alcohol Intake Frequency:: holidays/special occasions only Substance Use Type: denies use *Occupational Status:: disabled Housing: apartment Household Members: spouse *Travel in the last 8 weeks: None - Psychiatric History Pschychiatric History:: Reports:: Depression Family Hx:: Cancer, Coronary Artery Disease, Diabetes, Heart Attack, Hyperlipidemia, Hypertension, Stroke, Thyroid Disorder Review of Systems - Review of Systems Review of systems:: pertinent systems reviewed and negative unless documented below - Constitutional Denies chills, Denies headache(s) - Eyes Denies change in vision - ENT Denies sore throat - *Cardiovascular Reports chest pain at rest, Reports radiating jaw, neck or arm pain - *Respiratory Denies cough - *Gastrointestinal Denies abdominal pain - *Genitourinary Denies blood in urine - *Musculoskeletal Denies joint pain - Integumentary/Breasts Denies rash - *Neurologic Denies seizure-like activity - Psychiatric Denies anxiety Meds Home Medications Medication Instructions Recorded Confirmed Type Atorvastatin Calcium [Lipitor 40mg 40 mg PO HS 12/12/18 05/17/19 History Tablet] Albuterol Sulfate [Proventil-HFA 2 puffs IH QIDP PRN 03/07/19 05/17/19 History 90mcg/puff Inh] hydrocodone 5 mg-acetaminophen 325 1 tab PO BID PRN #42 tab 03/11/19 05/17/19 Rx mg tablet aspirin 81 mg tablet,delayed 81 mg PO DAILY #90 tab 05/16/19 05/17/19 Rx release cholecalciferol (vitamin D3) 25 2,000 unit PO DAILY #90 cap 05/16/19 05/17/19 Rx mcg (1,000 unit) capsule furosemide 40 mg tablet 40 mg PO DAILY #30 tab 05/16/19 05/17/19 Rx loratadine 10 mg tablet 10 mg PO DAILY #90 tab 05/16/19 05/17/19 Rx omeprazole 40 mg capsule,delayed 40 mg PO BID #180 cap 05/16/19 05/17/19 Rx release sertraline 50 mg tablet 50 mg PO DAILY #90 tab 05/16/19 05/17/19 Rx trazodone 150 mg tablet 150 mg PO HS #90 tab 05/16/19 05/17/19 Rx Diclofenac Sodium [Voltaren 100gm 2 g TOPICAL QID 05/17/19 05/17/19 History Topical Gel] Gabapentin [Gabapentin 300mg Cap] 800 mg PO TID 05/17/19 05/17/19 History Irbesartan [Avapro 150mg 150 mg PO DAILY 05/17/19 05/17/19 History tablet] Spironolactone [Spironolactone 25 mg PO DAILY 05/17/19 05/17/19 History 25mg Tablet] Allergies Allergy/AdvReac Type Severity Reaction Status Date / Time ketorolac [From TORADOL] Allergy Severe Anaphylaxis Verified 05/17/19 22:53 pregabalin [From Lyrica] Allergy Severe Anaphylaxis Verified 05/17/19 21:24 tramadol [TRAMADOL] Allergy Severe Anaphylaxis Verified 05/17/19 22:53 metoclopramide [From REGLAN] Allergy Unknown Anaphylaxis Verified 05/17/19 22:53 Sulfa (Sulfonamide Allergy Unknown Rash Verified 05/17/19 22:53 Antibiotics) [SULFA (SULFONAMIDE ANTIBIOTICS)] Exam Vital signs and Labs for Last 24 Hours: Temp Pulse Resp BP Pulse Ox 98.9 F 93 H 19 156/80 H 94 L 05/18/19 07:32 05/18/19 07:32 05/18/19 07:32 05/18/19 07:32 05/18/19 07:32 Laboratory Results - last 24 hr 05/17/19 21:00: WBC 6.2, RBC 4.25, Hgb 12.0 L, Hct 38.5, MCV 90.6, MCH 28.4, MCHC 31.3 L, RDW 14.7, Plt Count 175, MPV 8.5, Neut % (Auto) 70.6, Lymph % (Auto) 20.5, Meagher % (Auto) 2.8, Eos % (Auto) 5.8, Baso % (Auto) 0.3, Neut # (Auto) 4.4, Lymph # (Auto) 1.3, Meagher # (Auto) 0.2, Eos # (Auto) 0.4, Baso # (Auto) 0.0 05/17/19 21:00: Sodium 140, Potassium 4.2, Chloride 104, Carbon Dioxide 30, Anion Gap 10.2, BUN 17, Creatinine 1.54 H, Estimated Creat Clear 45, Estimated GFR 37 L, Est GFR ( Amer) 44 L, Glucose 95, Calcium 8.4 L, Troponin I < 0.02 05/17/19 23:59: Troponin I < 0.02 05/18/19 00:11: Urine Color Yellow, Urine Appearance Sl cloudy, Urine pH 5.5, Ur Specific [place] >= 1.030, Urine Protein Negative, Urine Glucose (UA) Negative, Urine Ketones Negative, Urine Blood Negative, Urine Nitrate Negative, Urine Bilirubin Negative, Urine Urobilinogen 0.2, Ur Leukocyte Esterase Trace, Urine WBC 5-10, Ur Squamous Epith Cells 20-50 05/18/19 03:35: Troponin I < 0.02 05/18/19 03:35: WBC 6.2, RBC 4.21, Hgb 11.7 L, Hct 37.2, MCV 88.5, MCH 27.8, MCHC 31.4 L, RDW 14.5, Plt Count 168, MPV 8.4, Neut % (Auto) 80.3 H, Lymph % (Auto) 13.2, Meagher % (Auto) 2.2, Eos % (Auto) 4.0, Baso % (Auto) 0.3, Neut # (Auto) 5.0, Lymph # (Auto) 0.8, Meagher # (Auto) 0.1, Eos # (Auto) 0.3, Baso # (Auto) 0.0 05/18/19 03:35: Sodium 145, Potassium 4.1, Chloride 104, Carbon Dioxide 29, Anion Gap 16.1 H, BUN 18, Creatinine 1.06 H D, Estimated Creat Clear 66, Estimated GFR 56 L, Est GFR ( Amer) 68 D, Glucose 86, Calcium 8.1 L, Magnesium 1.5, Triglycerides 92, Cholesterol 134 L, LDL Cholesterol 84, VLDL Cholesterol 18, HDL Cholesterol 32, Cholesterol/HDL Ratio 4.2 H 05/18/19 06:32: POC Glucose 96 I & O for Last 24 hours: Intake & Output 05/15/19 05/16/19 05/17/19 05/18/19 11:59 11:59 11:59 11:59 Intake Total 1360 / 1360 Output Total 900 / 900 Balance 460 / 460 Weight 339 lb 2 oz - Constitutional no acute distress, morbidly obese - *Routine HEENT Exam Head: Present: normocephalic Eye: Present: EOMI, PERRL ENT: Present: mucous membranes dry - *Routine Neck Exam Absent: JVD - *Routine Respiratory Exam Present: CTA bilaterally - *Routine Cardiovascular Exam Present: RRR, murmur - *Routine Abdominal Exam Present: soft. Absent: tenderness - *Routine Extremities Exam Absent: calf tenderness - *Routine Skin Exam Present: intact - *Routine Neurological Exam Present: alert, oriented X3, CN II-XII intact - Routine Psychiatric Exam Present: normal affect Assessment and Plan (1) Chest pain Current visit: Yes Status: Acute Qualifiers: Chest pain type: precordial pain Qualified Code(s): R07.2 - Precordial pain Category: Medical Code(s): R07.9 - Chest pain, unspecified (2) Diabetes mellitus type 2 in obese Current visit: Yes Status: Acute Category: Medical Code(s): E11.69 - Type 2 diabetes mellitus with other specified complication; E66.9 - Obesity, unspecified (3) Morbid obesity with BMI of 50.0-59.9, adult Current visit: Yes Status: Acute Category: Medical Code(s): E66.01 - Morbid (severe) obesity due to excess calories; Z68.43 - Body mass index (BMI) 50.0-59.9, adult
[2019-05-18 09:36] LABS: Amylase 22 U/L (25-115)
--- NOTE | 2019-05-18 11:33 | Pharmacy Consult Notes ---
[facility] Pharmacy VTE Monitoring - Patient Demographics Admission date: 05/17/19 Report Date: 05/18/19 Time: 11:32 Allergies/Adverse Reactions: Patient Allergies ketorolac [From TORADOL] Allergy (Severe, Verified 05/17/19 22:53) Anaphylaxis pregabalin [From Lyrica] Allergy (Severe, Verified 05/17/19 21:24) Anaphylaxis tramadol [TRAMADOL] Allergy (Severe, Verified 05/17/19 22:53) Anaphylaxis metoclopramide [From REGLAN] Allergy (Unknown, Verified 05/17/19 22:53) Anaphylaxis Sulfa (Sulfonamide Antibiotics) [SULFA (SULFONAMIDE ANTIBIOTICS)] Allergy (Unknown, Verified 05/17/19 22:53) Rash Height: 1.7 m Weight: 153.825 kg Patient Problems: Current Active Problems Chest pain (Acute) Diabetes mellitus type 2 in obese (Acute) Morbid obesity with BMI of 50.0-59.9, adult (Acute) - VTE Risk Labs: VTE Related Lab Results Hgb 11.7 g/dL (12.2-16.2) L 05/18/19 03:35 Hct 37.2 % (37.0-47.0) 05/18/19 03:35 Plt Count 168 K/mm3 (142-424) 05/18/19 03:35 BUN 18 mg/dL (7-18) 05/18/19 03:35 Creatinine 1.06 mg/dL (0.55-1.02) H D 05/18/19 03:35 Estimated Creat Clear 66 mL/min (50-200) 05/18/19 03:35 VTE Score: 11 VTE Risk Level: Moderate Risk - Prophylaxis VTE Prophylaxis Ordered?: Yes Types of VTE Prophylaxis: TEDS Knee High Location of Applied Device: Bilateral Lower Extremeties
--- NOTE | 2019-05-19 07:55 | Consult Report ---
History of Present Illness Consult date: 05/19/19 Requesting physician: Lewis Gates Consult reason: chest pain Chief complaint: chest pain, SOA Additional Medical History:: 1. Coronary artery disease A. History of [facility], 02/06/2018, [facility], Dr. Bush, two vessel CAD with 50% mid LAD lesion and 30% proximal ramus lesion. RCA dominant. LVEF normal 2. History of Crohn's disease, diagnosed 2011 3. Diabetes mellitus, type II 4. Family history of coronary artery disease in her father who was a smoker 5. History of CVA with left side affected 6. Obesity 7. Hypertension A. Echo, 02/2019,1. Mildly enlarged left atrium, normal left ventricular size, mild concentric left ventricular hypertrophy, visually estimated ejection fraction 55% with no regional wall motion abnormality. Grade 1 diastolic dysfunction seen without tissue Doppler evidence of raise left atrial pressure. 2. Mild mitral and tricuspid regurgitation. 3. No significant pericardial effusion noted 8. Hyperlipidemia 9. History of pancreatitis History of present illness: 43-year-old obese white female with history of moderate coronary artery disease by cardiac catheterization as noted above presented to the emergency department for evaluation of chest discomfort and shortness of breath. She relates a 3-day history of chest pressure that has been constant without radiation or associated. She does relate shortness of breath with a nonproductive cough but denies fever or chills until last evening she relates a temperature of 102.3 (confirmed). EKG on admission is sinus rhythm with nonspecific ST-T abnormalities unchanged compared to previous tracings from 2018. Troponins this admission have been normal x3. [facility] History Medical History: Reports:: Asthma, Depression, Diabetes Mellitus Type 2, Gall Bladder Disease, Hyperlipidemia, Hypertension Denies:: Cancer, Diabetes Mellitus Type 1, MRSA *Have you ever received a pneumonia vaccine?: Yes (2018) *Have you received a flu vaccine this season?: Yes (2019) Other Medical History: Reports: Anemia, Liver Disease Other Surgeries: Yes: Cardiac Catheterization, Cholecystectomy, Colonoscopy, EGD, Hernia Repair Amputation: No Fractures: No - *Social History Educational Level: Attended High School Smoking Status: Former smoker Tobacco Type: cigarettes # Packs/Day (cigarettes): 1 #Yrs smoked (if former smoker): 23 Alcohol Intake: never Alcohol Intake Frequency:: holidays/special occasions only Substance Use Type: denies use *Occupational Status:: disabled Housing: apartment Household Members: spouse *Travel in the last 8 weeks: None - Psychiatric History Pschychiatric History:: Reports:: Depression Family Hx:: Cancer, Coronary Artery Disease, Diabetes, Heart Attack, Hyperlipidemia, Hypertension, Stroke, Thyroid Disorder Meds Home Medications Medication Instructions Recorded Confirmed Type Atorvastatin Calcium [Lipitor 40mg 40 mg PO HS 12/12/18 05/17/19 History Tablet] Albuterol Sulfate [Proventil-HFA 2 puffs IH QIDP PRN 03/07/19 05/17/19 History 90mcg/puff Inh] hydrocodone 5 mg-acetaminophen 325 1 tab PO BID PRN #42 tab 03/11/19 05/17/19 Rx mg tablet aspirin 81 mg tablet,delayed 81 mg PO DAILY #90 tab 05/16/19 05/17/19 Rx release cholecalciferol (vitamin D3) 25 2,000 unit PO DAILY #90 cap 05/16/19 05/17/19 Rx mcg (1,000 unit) capsule furosemide 40 mg tablet 40 mg PO DAILY #30 tab 05/16/19 05/17/19 Rx loratadine 10 mg tablet 10 mg PO DAILY #90 tab 05/16/19 05/17/19 Rx omeprazole 40 mg capsule,delayed 40 mg PO BID #180 cap 05/16/19 05/17/19 Rx release sertraline 50 mg tablet 50 mg PO DAILY #90 tab 05/16/19 05/17/19 Rx trazodone 150 mg tablet 150 mg PO HS #90 tab 05/16/19 05/17/19 Rx Diclofenac Sodium [Voltaren 100gm 2 g TOPICAL QID 05/17/19 05/17/19 History Topical Gel] Gabapentin [Gabapentin 300mg Cap] 800 mg PO TID 05/17/19 05/17/19 History Irbesartan [Avapro 150mg 150 mg PO DAILY 05/17/19 05/17/19 History tablet] Spironolactone [Spironolactone 25 mg PO DAILY 05/17/19 05/17/19 History 25mg Tablet] Canagliflozin [Invokana] 100 mg PO DAILY 05/18/19 05/18/19 History carvediloL [Carvedilol 12.5mg Tab] 12.5 mg PO BID 05/18/19 05/18/19 History Allergies Allergy/AdvReac Type Severity Reaction Status Date / Time ketorolac [From TORADOL] Allergy Severe Anaphylaxis Verified 05/17/19 22:53 pregabalin [From Lyrica] Allergy Severe Anaphylaxis Verified 05/17/19 21:24 tramadol [TRAMADOL] Allergy Severe Anaphylaxis Verified 05/17/19 22:53 metoclopramide [From REGLAN] Allergy Unknown Anaphylaxis Verified 05/17/19 22:53 Sulfa (Sulfonamide Allergy Unknown Rash Verified 05/17/19 22:53 Antibiotics) [SULFA (SULFONAMIDE ANTIBIOTICS)] Review of Systems - Review of Systems Review of systems:: pertinent systems reviewed and negative unless documented below - *Cardiovascular Reports chest pain, Reports shortness of breath - *Respiratory Reports cough, Reports shortness of breath, Reports wheezing - *Gastrointestinal Denies loose stools, Denies nausea, Denies vomiting - *Genitourinary Denies blood in urine - *Musculoskeletal Reports back pain, Denies joint pain - *Neurologic Denies headache(s), Denies seizure-like activity Exam Vital signs and Labs for Last 24 Hours: Temp Pulse Resp BP Pulse Ox 100.2 F H 91 H 18 119/57 L 97 05/19/19 04:00 05/19/19 04:00 05/19/19 04:00 05/19/19 04:00 05/19/19 04:00 Laboratory Results - last 24 hr 05/18/19 03:35: LDL Cholesterol 84, HDL Cholesterol 32, Cholesterol/HDL Ratio 4.2 H 05/18/19 09:13: Amylase 22 L, Lipase 92 05/18/19 16:09: POC Glucose 87 05/18/19 21:07: POC Glucose 94 05/19/19 05:12: POC Glucose 103 I & O for Last 24 hours: Intake & Output 05/16/19 05/17/19 05/18/19 05/19/19 11:59 11:59 11:59 11:59 Intake Total 1480 / 1480 870 / 870 Output Total 900 / 900 1300 / 1300 Balance 580 / 580 -430 / -430 Weight 339 lb 2 oz 337 lb 7 oz - *Routine HEENT Exam Head: Present: normocephalic Eye: Present: EOMI, PERRL ENT: Present: mucous membranes moist - *Routine Neck Exam Present: supple. Absent: JVD, carotid bruit - *Routine Respiratory Exam Present: wheezes. Absent: accessory muscle use, rales, rhonchi - *Routine Cardiovascular Exam Present: RRR. Absent: murmur, gallop, rubs - *Routine Abdominal Exam Present: soft. Absent: tenderness, distended, guarding - *Routine Extremities Exam Absent: edema, calf tenderness - *Routine Neurological Exam Present: alert, oriented X3, moving all extremities Assessment and Plan (1) Chest pain Current visit: Yes Status: Acute Qualifiers: Chest pain type: precordial pain Qualified Code(s): R07.2 - Precordial pain Category: Medical Code(s): R07.9 - Chest pain, unspecified (2) Diabetes mellitus type 2 in obese Current visit: Yes Status: Acute Category: Medical Code(s): E11.69 - Type 2 diabetes mellitus with other specified complication; E66.9 - Obesity, unspecified (3) Morbid obesity with BMI of 50.0-59.9, adult Current visit: Yes Status: Acute Category: Medical Code(s): E66.01 - Morbid (severe) obesity due to excess calories; Z68.43 - Body mass index (BMI) 50.0-59.9, adult (4) Coronary artery disease Current visit: No Status: Acute Qualifiers: Coronary Disease-Associated Artery/Lesion type: unspecified vessel or lesion type [place] vs. transplanted heart: [place] heart Associated angina: with unspecified angina Qualified Code(s): I25.119 - Atherosclerotic heart disease of [place] coronary artery with unspecified angina pectoris Category: Medical Code(s): I25.10 - Atherosclerotic heart disease of [place] coronary artery without angina pectoris (5) History of Crohn's disease Current visit: Yes Status: Acute Category: Medical Code(s): Z87.19 - Personal history of other diseases of the digestive system - Assessment and plan all Dx Assessment and Plan for all problems:: 1. 3 days of constant chest pain with normal troponins and no acute changes on EKG. Patient's last known cardiac cath was January 2018 with moderate disease. She states she had a cath in [address] at [place] [address] Rangel, we will try to obtain those results. At this point would not recommend any further cardiac testing or follow-up. Continue current medical therapy. OK for discharge from cardiology standpoint with follow up in our office in 1-2 wks. 2. History of hypertensive heart disease/diastolic dysfunction, continue irbesartan 150 daily along with Lasix 40 mg daily and spironolactone 25 mg daily. Would not recommend beta-blockers at this time due to the patient's pulmonary wheezing on exam. 3. Consider referral for GI evaluation with history of Crohn's disease. 4. Elevated temp and pulmonary wheezing with history of asthma, defer to Dr. Gates.
--- NOTE | 2019-05-19 08:34 | Discharge Summary ---
General - General Admission date:: 05/17/19 Discharge date: 05/19/19 HPI HPI: this wf presented to the ed last pm with chesst pain with rad to lt upper ext stated she has had chest pain for the last two hours. pt describes the pain as a pressure rating a 6 on a 0-10 scale. pt stated she took 3 nitro SL and an 81mg aspirin at home but had no relief. pt was admitted for [facility] Hospital Course Hospital Course: per cardiology recommendation: 1. 3 days of constant chest pain with normal troponins and no acute changes on EKG. Patient's last known cardiac cath was January 2018 with moderate disease. She states she had a cath in [address] [place] [address] Rangel, we will try to obtain those results. At this point would not recommend any further cardiac testing or follow-up. Continue current medical therapy. OK for discharge from cardiology standpoint with follow up in our office in 1-2 wks. 2. History of hypertensive heart disease/diastolic dysfunction, continue irbesartan 150 daily along with Lasix 40 mg daily and spironolactone 25 mg daily. Would not recommend beta-blockers at this time due to the patient's pulmonary wheezing on exam. 3. Consider referral for GI evaluation with history of Crohn's disease. 4. Elevated temp and pulmonary wheezing with history of asthma, defer to Dr. Peguero. chest x ray: no acute findings will dc home on cardiology recommendations, zpak, steroids, and albuterol. pt states she has nebs at home. pt will follow up in office for further work up. Abnormal Lab Results 05/18/19 03:35: Cholesterol/HDL Ratio 4.2 H 05/18/19 09:13: Amylase 22 L Laboratory Results - last 24 hr 05/18/19 03:35: LDL Cholesterol 84, HDL Cholesterol 32, Cholesterol/HDL Ratio 4.2 H 05/18/19 09:13: Amylase 22 L, Lipase 92 05/18/19 16:09: POC Glucose 87 05/18/19 21:07: POC Glucose 94 05/19/19 05:12: POC Glucose 103 Objective Vital signs: Temp Pulse Resp BP Pulse Ox 99.2 F 95 H 18 135/77 91 L 05/19/19 08:00 05/19/19 08:00 05/19/19 08:00 05/19/19 08:00 05/19/19 08:00 no acute distress, morbidly obese, obese - *Routine HEENT Exam Head: Present: normocephalic Eye: Present: PERRL ENT: Present: mucous membranes moist - *Routine Respiratory Exam Present: wheezes - *Routine Cardiovascular Exam Present: RRR - *Routine Abdominal Exam Present: soft, normoactive bowel sounds. Absent: tenderness - *Routine Extremities Exam Present: full ROM - *Routine Skin Exam Present: intact - *Routine Neurological Exam Present: alert, oriented X3 - Routine Psychiatric Exam Present: normal affect Results Labs on day of discharge: Labs from last 24 hours 05/19/19 05/18/19 05/18/19 05:12 21:07 16:09 POC Glucose 103 94 87 LDL Cholesterol HDL Cholesterol Cholesterol/HDL Ratio Amylase Lipase 05/18/19 05/18/19 09:13 03:35 POC Glucose LDL Cholesterol 84 HDL Cholesterol 32 Cholesterol/HDL Ratio 4.2 H Amylase 22 L Lipase 92 - Additional Comments rounded with dr leary all orders per dr peguero DS: Diagnosis - Discharge Diagnosis (1) Chest pain Status: Acute (2) Diabetes mellitus type 2 in obese Status: Acute (3) Morbid obesity with BMI of 50.0-59.9, adult Status: Acute (4) Coronary artery disease Status: Acute (5) History of Crohn's disease Status: Acute Discharge Plan - Patient Discharge Instructions ACTIVITY: Continue current activity DIET: continue same diet Patient Instructions: Type 2 Diabetes, DI for Diabetes Type 2, DI for Chest Pain - Follow up Plan Follow up with: Lewis Peguero MD [Primary Care Provider] - 1 week Disposition: Home, Self-Fdc Medications: Home Medications Medication Instructions Recorded Confirmed Type Atorvastatin Calcium [Lipitor 40mg 40 mg PO HS 12/12/18 05/17/19 History Tablet] hydrocodone 5 mg-acetaminophen 325 1 tab PO BID PRN #42 tab 03/11/19 05/17/19 Rx mg tablet aspirin 81 mg tablet,delayed 81 mg PO DAILY #90 tab 05/16/19 05/17/19 Rx release cholecalciferol (vitamin D3) 25 2,000 unit PO DAILY #90 cap 05/16/19 05/17/19 Rx mcg (1,000 unit) capsule furosemide 40 mg tablet 40 mg PO DAILY #30 tab 05/16/19 05/17/19 Rx loratadine 10 mg tablet 10 mg PO DAILY #90 tab 05/16/19 05/17/19 Rx omeprazole 40 mg capsule,delayed 40 mg PO BID #180 cap 05/16/19 05/17/19 Rx release sertraline 50 mg tablet 50 mg PO DAILY #90 tab 05/16/19 05/17/19 Rx trazodone 150 mg tablet 150 mg PO HS #90 tab 05/16/19 05/17/19 Rx Diclofenac Sodium [Voltaren 100gm 2 g TOPICAL QID 05/17/19 05/17/19 History Topical Gel] Gabapentin [Gabapentin 300mg Cap] 800 mg PO TID 05/17/19 05/17/19 History Irbesartan [Avapro 150mg 150 mg PO DAILY 05/17/19 05/17/19 History tablet] Spironolactone [Spironolactone 25 mg PO DAILY 05/17/19 05/17/19 History 25mg Tablet] Canagliflozin [Invokana] 100 mg PO DAILY 05/18/19 05/18/19 History carvediloL [Carvedilol 12.5mg Tab] 12.5 mg PO BID 05/18/19 05/18/19 History Albuterol Sulfate [Proventil-HFA 2 puffs IH QIDP PRN 30 Days #1 puff 05/19/19 Rx 90mcg/puff Inh] Azithromycin [Zithromax 250mg 250 mg PO DIRECTED #6 tab 05/19/19 Rx tab] predniSONE [Prednisone 20mg 20 mg PO BID 3 Days #6 tab 05/19/19 Rx Tab] Prescriptions/Medication Reconciliation: New predniSONE [Prednisone 20mg Tab] 20 mg PO BID 3 Days #6 tab Azithromycin [Zithromax 250mg tab] 250 mg PO DIRECTED #6 tab Continued hydrocodone 5 mg-acetaminophen 325 mg tablet 1 tab PO BID PRN #42 tab PRN Reason: pain aspirin 81 mg tablet,delayed release 81 mg PO DAILY #90 tab cholecalciferol (vitamin D3) 25 mcg (1,000 unit) capsule 2,000 unit PO DAILY #90 cap furosemide 40 mg tablet 40 mg PO DAILY #30 tab loratadine 10 mg tablet 10 mg PO DAILY #90 tab omeprazole 40 mg capsule,delayed release 40 mg PO BID #180 cap sertraline 50 mg tablet 50 mg PO DAILY #90 tab trazodone 150 mg tablet 150 mg PO HS #90 tab Atorvastatin Calcium [Lipitor 40mg Tablet] 40 mg PO HS Diclofenac Sodium [Voltaren 100gm Topical Gel] 2 g TOPICAL QID Spironolactone [Spironolactone 25mg Tablet] 25 mg PO DAILY Canagliflozin [Invokana] 100 mg PO DAILY Albuterol Sulfate [Proventil-HFA 90mcg/puff Inh] 2 puffs IH QIDP PRN 30 Days #1 puff PRN Reason: breathing Gabapentin [Gabapentin 300mg Cap] 800 mg PO TID Irbesartan [Avapro 150mg tablet] 150 mg PO DAILY Discontinued carvediloL [Carvedilol 12.5mg Tab] 12.5 mg PO BID - Problem Reconciliation Problems Reviewed?: Yes
--- NOTE | 2019-05-19 12:55 | Electrocardiograph Report ---
APPROVED REPORT Exam: Resting ECG HR:85 bpm ECG Measurements Heart Rate 85 AXES CO 132 P 64 QRSd 80 QRS 36 QT 366 T32 QTc 435 <Conclusion> Normal sinus rhythm Possible Left atrial enlargement Nonspecific ST and T wave abnormality Abnormal ECG Electronically signed by : Enoch Canela, 05/19/2019 12:55:12
--- NOTE | 2019-05-19 18:40 | Cardiology Report ---
APPROVED REPORT EXAM: Comprehensive 2D, Doppler, and color-flow Echocardiogram Theatrical Dresser: Jennifer Vail CRT Ht: 5 ft 7 in Wt: 338lbs BSA: 2.53 BP: 125/63 mmHg Indications: cp, htn, dm, obesity, hld 2D Dimensions LVOT 2.01 cm (M/F) 1.5-2.5 M-Mode Dimensions RVDd 2.74 cm (0.9-2.6)LVDd 5.74 cm (3.5-5.7) LVDs 3.88 cm (3.5-5.7)IVSd 1.10 cm (0.6-1.1) PWd 0.61 cm (0.6-1.1)EF (Teich) 60.00% FS 32.40% EDV (Teich) 162.60 mL ESV (Teich) 65.10 mL LV Diastology E/A Ratio 1.38 Mitral Valve MV A Velocity 59.00 (40-130 cm/s) Left Ventricle Left atrium is mildly enlarged, left ventricle is normal size, mild concentric left ventricular hypertrophy, visually estimated ejection fraction 55% with no regional wall motion abnormality, grade 1 diastolic dysfunction seen with tissue Doppler evidence of raise left atrial pressure. Right Ventricle Right atrium and right ventricle mildly enlarged with normal contractility. Aortic Valve Aortic valve is thickened and calcified leaflet continue to display good mobility, there is no aortic stenosis or aortic insufficiency. Mitral Valve Mitral valve is grossly normal, there is mild mitral regurgitation. Tricuspid Valve Tricuspid valve is grossly normal, there is mild tricuspid regurgitation. Tricuspid regurgitation jet velocity is inadequate for calculation of the right ventricular systolic pressure. Pulmonic Valve Pulmonic valve is poorly visualized. Great Vessels Aortic root is normal size. Pericardium No significant pericardial effusion noted. Conclusion 1. Mild biatrial enlargement, normal left ventricular size, mild concentric left ventricular hypertrophy, visually estimated ejection fraction 55% with no regional wall motion abnormality, grade 1 diastolic dysfunction seen with tissue Doppler evidence of raise left atrial pressure. Endocardial surfaces are poorly visualized. 2. Mildly enlarged right ventricle with normal contractility. 3. Mild mitral and tricuspid regurgitation. 4. No significant pericardial effusion noted. Electronically signed by : Karthik Henry, 05/19/2019 18:39:47
== END 2019-05-19 10:25 | disposition home or self-care (01) ==
LOC: 2ND 19:58 → ER 19:58 → 2ND 22:45
PROVIDERS: ADMIT Emergency Medicine; ATTEND Emergency Medicine
CPT/HCPCS: 36415; 71020; 71046; 80048; 80061; 81001; 82150; 82962; 83690; 83735; 84484; 85025; 93005; 93306; 96365; 96375; 99284; G0378; J2405

== ENCOUNTER 2020-01-14 18:57 | Observation (INO) | payer MEDICARE, MEDICAID, SELFPAY ==
[2020-01-14] VITALS (7 sets, daily range): BP systolic 117–173; BP diastolic 72–93; PULSE 86–101; RESP 17–20; TEMP 36.8; O2SAT 96–98; BMI 54.8; BMI 56.4
--- NOTE | 2020-01-14 18:52 | ECG_ITS ---
APPROVED REPORT Exam: Resting ECG HR:99 bpm ECG Measurements Heart Rate 99 AXES OR 126 P 58 QRSd 78 QRS 47 QT 356 T 43 QTc 456 <Conclusion> Normal sinus rhythm left atrial abnormality Nonspecific ST abnormality Abnormal ECG Electronically signed by : Rupesh Reyes, 01/16/2020 07:29:04
--- NOTE | 2020-01-14 19:01 | XR_ITS ---
PROCEDURE: XR CHEST PORTABLE CLINICAL HISTORY: chest pain COMPARISON: CR XR CHEST PORTABLE from 03/07/2019 CR XR CHEST 2V from 05/17/2019 CR XR CHEST 2V from 05/29/2019 FINDINGS: The cardiomediastinal silhouette and pulmonary vascularity are within normal limits. The lungs are clear without infiltrates, suspicious nodules, or pleural effusions. No acute bony abnormalities. IMPRESSION: No acute findings. Dictated by: Ernie Finn MD 01/15/2020 05:06 Ernie Finn MD in OV 01/15/2020 05:06
--- NOTE | 2020-01-14 19:03 | HMH.EDGENADL ---
ED Disposition Condition on Discharge: Good - Critical Care Critical Care Time: No <CarrasquilloAllen - Last Filed: 01/14/20 19:56> <Lewis Gates - Last Filed: 01/14/20 20:13> Clinical Impression: Diabetes mellitus type 2 in obese Chest pain Qualifiers: Chest pain type: unspecified Qualified Code(s): R07.9 - Chest pain, unspecified Obesity Qualifiers: Obesity type: due to excess calories Obesity classification: adult class 3 (BMI >= 40) Serious obesity comorbidity presence: with serious comorbidity Body mass index: BMI 50.0-59.9 Qualified Code(s): E66.01 - Morbid (severe) obesity due to excess calories; Z68.43 - Body mass index (BMI) 50.0-59.9, adult Disposition: Admitted as Observation Referrals: Paresh Cole MD [Primary Care Provider] - Attestation: On 01/14/20, the high probability of a clinically significant, sudden or life threatening deterioration of the following system(s) required my full and direct attention, intervention and personal management. The time I documented below is in addition to time spent performing reported procedures but includes the following listed in this critical care notation. Medical Decision Making - Medical Records Medical records reviewed: Yes: I reviewed the patient's medical records. MR Comment: 44-year-old female with a history of hyperlipidemia, obesity, hypertension, diabetes presents emergency department with complaint of chest pain/pressure. She arrives to the emergency department hemodynamically stable, with reassuring vital signs, and looks well on exam. ACS Considered. PE is not clinically concerning at this time. She has no infectious symptoms that would indicate pneumonia. Will get labs including EKG and reassess. Handed over to Dr. Gates at shift change. - Fredi Inquiry Pt receiving controlled substance: No - Lab Data Result diagrams: 01/14/20 19:05 01/14/20 19:05 <Allen Carrasquillo - Last Filed: 01/14/20 19:56> - Lab Data Result diagrams: 01/14/20 19:05 01/14/20 19:05 - MICHELLE Score for Non-Stemi Age of Patient: 40-49 years old Heart Rate: 90-109 bpm Systolic Blood Pressure: 160-199 mmHg Serum Creatinine: 0.40-0.79 mg/dl CHF [place] Class: I-No CHF Other Risk Factors: None Non-Stemi Risk Score: 54 <KodyLewis - Last Filed: 01/14/20 20:13> Vital Signs: 01/14/20 19:00 01/14/20 19:30 01/14/20 20:00 Temperature 98.2 F Temperature Source Oral Pulse Rate [Right Radial] 101 H 98 H 97 H Respiratory Rate 20 17 17 Blood Pressure [Right Arm] 173/93 H 127/80 117/76 Blood Pressure Mean [Right Arm] 119 95 89 Blood Pressure Source [Right Arm] Automatic Cuff Automatic Cuff Automatic Cuff Blood Pressure Position [Right Arm] Sitting Supine Supine 02 Sat by Pulse Oximetry 98 96 96 Oxygen Delivery Method Room Air Room Air Room Air - Lab Data Lab Results 01/14/20 19:05: WBC 6.4, RBC 4.28, Hgb 11.6 L, Hct 36.6 L, MCV 85.6, MCH 27.1, MCHC 31.6 L, RDW 16.6, Plt Count 222, MPV 8.4, Neut % (Auto) 68.7, Lymph % (Auto) 24.9, [place] % (Auto) 3.5, Eos % (Auto) 2.5, Baso % (Auto) 0.4, Neut # (Auto) 4.4, Lymph # (Auto) 1.6, [place] # (Auto) 0.2, Eos # (Auto) 0.2, Baso # (Auto) 0.0 01/14/20 19:05: Sodium 138, Potassium 4.4, Chloride 101, Carbon Dioxide 31 H, Anion Gap 10.4, BUN 8, Creatinine 0.70, Estimated Creat Clear 99, Estimated GFR 90, Est GFR ( Amer) 109, Glucose 133 H, Calcium 8.9, Troponin I < 0.01 01/14/20 19:20: Urine Color Yellow, Urine Appearance Clear, Urine pH 7.0, Ur Specific [place] 1.010, Urine Protein Negative, Urine Glucose (UA) Negative, Urine Ketones Negative, Urine Blood Negative, Urine Nitrate Positive, Urine Bilirubin Negative, Urine Urobilinogen 0.2, Ur Leukocyte Esterase Trace Orders (Tests/Meds): ED MEDICATIONS Discontinued Medications Generic Name Dose Route Start Last Admin Trade Name Freq PRN Reason Stop Dose Admin Aspirin 243 mg 01/14/20 19:01 01/14/20 19:14 Aspirin 81mg Chewable Tablet PO 01/14/20 19
[2020-01-14 19:17] LABS: Basophils % 0.4 % (0.1-2.0); Eosinophils # 0.2 K/mm3 (0.0-0.4); Eosinophils % 2.5 % (0.1-12.0); Hematocrit 36.6 % (37.0-47.0); Hemoglobin 11.6 g/dL (12.2-16.2); Lymphocytes # 1.6 K/mm3 (0.7-4.5); Lymphocytes % 24.9 % (10-50); Mean Corpuscular HGB Conc 31.6 g/dL (31.8-35.4); Mean Corpuscular Hemoglobin 27.1 pg (27.0-31.2); Mean Corpuscular Volume 85.6 fl (81-99); Mean Platelet Volume 8.4 fl (7.4-10.4); Monocytes # 0.2 K/mm3 (0.1-1.0); Monocytes % 3.5 % (1.7-9.3); Neutrophils # 4.4 K/mm3 (1.8-7.8); Neutrophils % 68.7 % (37.0-80.0); Platelet Count 222 K/mm3 (142-424); Red Blood Count 4.28 M/mm3 (4.20-5.40); Red Cell Distribution Width 16.6 % (11.5-17.5); White Blood Count 6.4 K/mm3 (4.8-10.8)
[2020-01-14 19:24] LABS: Chloride 101 mmol/L (98-107); Sodium 138 mmol/L (136-145)
[2020-01-14 19:25] LABS: Potassium 4.4 mmoL/L (3.5-5.1)
[2020-01-14 19:27] LABS: Blood Urea Nitrogen 8 mg/dl (7-17); Creatinine Clearance Estimated 99 mL/min (50-200); Estimated Glomerular Filt Rate 90 ml/min (>60); GFR (African American) 109 ML/MIN (>60)
[2020-01-14 19:28] LABS: Anion Gap 10.4 mEq/L (5-15); Calcium 8.9 mg/dl (8.4-10.2); Carbon Dioxide 31 mmol/L (22.0-30.0); Glucose 133 mg/dl (74-100)
[2020-01-14 19:52] LABS: Microscopic, Urine URINE MICROSCOPIC (MICROSCOPIC)
[2020-01-14 19:58] LABS: Appearance,Urine CLEAR (Clear); Bilirubin,Urine Negative (Negative); Blood, Urine Negative (Negative); Color,Urine YELLOW (Yellow); Glucose,Urine (UA) Negative (Negative); Ketones,Urine Negative (Negative); Leukocyte Esterase,Urine TRACE (Negative); Nitrate,Urine POSITIVE (Negative); Protein,Urine Negative (Negative); Urobilinogen,Urine 0.2 EU/dl (0.2)
[2020-01-14 19:58] LABS: Troponin I < 0.01 ng/ml (0.00-0.034)
[2020-01-14 20:10] LABS: Amphetamine/Metha Screen,Urine Negative ng/ml (<1000)
[2020-01-14 20:11] LABS: Barbiturates Screen,Urine Negative ng/ml (<200)
[2020-01-14 20:12] LABS: Benzodiazepines Screen,Urine Negative ng/ml (<200); Cannabinoid Screen,Urine Negative ng/ml (<50)
[2020-01-14 20:13] LABS: Cocaine Screen,Urine Negative ng/ml (<300)
[2020-01-14 20:14] LABS: Methadone Screen,Urine Negative ng/ml (<300); Opiate Screen,Urine Negative ng/ml (<300)
[2020-01-14 20:15] LABS: Phencyclidine Screen,Urine Negative ng/ml (<25)
[2020-01-14 20:18] LABS: Amorphous Sediment,Urine 1+ /lpf; Bacteria,Urine 3+ /lpf; RBC,Urine Occasional #/hpf (0-3)
[2020-01-14 20:31] LABS: Coronavirus 19 IgG Antibody Negative (Negative); Coronavirus 19 IgM Antibody Negative (Negative)
--- NOTE | 2020-01-14 21:18 | PC.NURSE ---
PT ARRIVED TO THE FLOOR VIA W/C FROM ED AT 2117
[2020-01-14 22:47] LABS: Troponin I < 0.01 ng/ml (0.00-0.034)
[2020-01-14 23:21] LABS: POC Glucose,Bedside 113 (70-110)
[2020-01-15] VITALS (11 sets, daily range): BP systolic 100–113; BP diastolic 55–66; PULSE 65–90; RESP 16–22; TEMP 36.4–36.7; O2SAT 91–100; BMI 56.5
[2020-01-15 01:24] LABS: Troponin I < 0.01 ng/ml (0.00-0.034)
--- NOTE | 2020-01-15 02:25 | PC.NURSE ---
A&OX3. 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 PERRLA NOTED. LUNGS CLEAR T/O AUSCULTATION. TOLERATED RA WELL. PULSES +2. NSR NOTED PER QUALITY CHECKER. C/O LEFT SIDED CHEST PRESSURE THAT RADIATES TO NECK AND LEFT ARM THIS SHIFT, NOTIFIED MD OF COMPLAINTS AND REQUEST FOR SOME HOME MEDICATIONS NEEDING TO BE REORDERED, MD ORDERED TYLENOL AND GAVE OKAY TO GIVE REQUESTED NIGHT TIMES MEDS. ON REASSESSMENT FROM ADMIN OF TYLENOL, PT REPORTED PAIN HAD NOT IMPROVED, ADMINISTERED 2 TABS OF NORCO PER PT REQUEST, FOLLOWING EDUCATION PROVIDED ABOUT GIVING ONE TAB THEN IF THAT DID NOT HELP WITH PAIN, A SECOND TAB COULD BE GIVEN WITH IN A HOUR IF NO RELIEF FROM THE FIRST NORCO. ON REASSESSMENT OF 2 TABS OF NORCO, PT RESTING IN BED WITH EYES CLOSED. PINK COLORED MOIST SKIN NOTED UNDER BILAT BREAST ON ADMISSION, PILLOW CASE WAS APPLIED. POWDER APPLIED TO BILAT GROIN AREA R/T PINK COLORATION. VSS. WILL CONTINUE TO MONITOR.
--- NOTE | 2020-01-15 02:35 | PC.NURSE ---
HX OF SEIZURES REPORTED ON ADMISSION, PT REFUSED USE OF SEIZURE PADS DESPITE EDUCATION OF REASONING OF USE OF SEIZURE PADS.
[2020-01-15 05:35] LABS: POC Glucose,Bedside 122 (70-110)
--- NOTE | 2020-01-15 06:23 | PC.NURSE ---
Danny GRANGER NOTIFIED OF CONSULT.
--- NOTE | 2020-01-15 07:40 | HMH.CNCARD ---
History of Present Illness Consult date: 01/15/20 Requesting physician: Paresh Cole Consult reason: chest pain Chief complaint: chest pain Additional Medical History:: 1. Coronary artery disease A. History of [facility], 02/06/2018, [place], Dr. Bush, two vessel CAD with 50% mid LAD lesion and 30% proximal ramus lesion. RCA dominant. LVEF normal. B. [facility], 10/06/19, [facility], Dr. Sylvain Light, mild CAD of LAD (less than 10%) otherwise normal coronaries. EF 65%. 2. History of Crohn's disease, diagnosed 2011 3. Diabetes mellitus, type II 4. Family history of coronary artery disease in her father who was a smoker 5. History of CVA with left side affected 6. Obesity 7. Hypertension A. Echo, 04/2019,1. Mild biatrial enlargement, normal left ventricular size, mild concentric left ventricular hypertrophy, visually estimated ejection fraction 55% with no regional wall motion abnormality, grade 1 diastolic dysfunction seen with tissue Doppler evidence of raise left atrial pressure. Endocardial surfaces are poorly visualized. 2. Mildly enlarged right ventricle with normal contractility. 3. Mild mitral and tricuspid regurgitation. 4. No significant pericardial effusion noted. 8. Hyperlipidemia A. Statin therapy 9. History of pancreatitis History of present illness: 44-year-old white female with known history of diabetes, hypertension, hyperlipidemia, Crohn's disease and moderate coronary artery disease by cardiac cath in 2017 presented to the emergency department for evaluation of chest pain. Patient states symptoms onset at rest while watching TV. She leads a fairly sedentary lifestyle. She denies any fever, chills but has had nausea and vomiting associated with the chest pain. Symptoms improved after 3 nitro but did not resolve at home and subsequently prompted her to come to the ER. Patient was given Nitropaste again with some mild improvement in symptoms but not resolution. She relates vomiting 3-4 times yesterday without any episodes of diarrhea. She complains of chest pain this morning with some left arm discomfort. There is no significant exacerbation with breathing or arm movement. Palpation of the chest is not reproducing her chest pain. Troponins overnight have returned normal x3. EKG is sinus rhythm with some chronic inferior lateral nonspecific ST-T abnormalities noted back to 2018 tracings. Chest x-ray shows no acute process. Cardiology consulted for evaluation and recommendations. [facility] History Medical History: Reports:: Asthma, Congestive Heart Failure, Depression, Diabetes Mellitus Type 2 (NIDDM), Gall Bladder Disease, Hyperlipidemia, Hypertension Denies:: Cancer, Diabetes Mellitus Type 1, MRSA *Have you ever received a pneumonia vaccine?: Yes *Have you received a flu vaccine this season?: Yes Other Medical History: Reports: Anemia, Liver Disease Other Surgeries: Yes: Cardiac Catheterization, Cholecystectomy, Colonoscopy, EGD, Hernia Repair Amputation: No Fractures: No - *Social History Last grade of school completed: 9th or 10th Smoking Status: Former smoker Tobacco Type: cigarettes # Packs/Day (cigarettes): 1 #Yrs smoked (if former smoker): 1 Alcohol Intake: never Alcohol Intake Frequency:: holidays/special occasions only Substance Use Type: denies use *Occupational Status:: disabled Housing: apartment Household Members: spouse, significant other *Travel in the last 8 weeks: None - Psychiatric History Pschychiatric History:: Reports:: Depression Family Hx:: Cancer, Coronary Artery Disease, Diabetes, Heart Attack, Hyperlipidemia, Hypertension, Stroke, Thyroid Disorder Meds Home Medications Medication Instructions Recorded Confirmed Type Atorvastatin Calcium [Lipitor 40mg 40 mg PO HS 12/12/18 01/14/20 History Tablet] hydrocodone 5 mg-acetaminophen 325 1 tab PO BID PRN #42 tab 03/11/19 01/14/20 Rx mg tablet Canagliflozin [Invokana] 100 mg PO SHAN
--- NOTE | 2020-01-15 08:06 | HMH.HP ---
*Admission Date: 01/14/20 *Chief complaint: chest pain *History of present illness: 44-year-old female with a history of hyperlipidemia, obesity, hypertension, diabetes presents emergency department with complaint of chest pain/pressure. She arrives to the emergency department hemodynamically stable, with reassuring vital signs, and looks well on exam. ACS Considered. PE is not clinically concerning at this time. She has no infectious symptoms that would indicate pneumonia. Will get labs including EKG and reassess. Handed over to Dr. Gates at shift change. Previous workups Coronary artery disease A. History of [facility], 02/06/2018, [facility], Dr. Bush, two vessel CAD with 50% mid LAD lesion and 30% proximal ramus lesion. RCA dominant. LVEF normal. B. [facility], 10/06/19, [facility], Dr. Sylvain Light, mild CAD of LAD (less than 10%) otherwise normal coronaries. EF 65%. [facility] History Medical History: Reports:: Asthma, Congestive Heart Failure, Depression, Diabetes Mellitus Type 2 (NIDDM), Gall Bladder Disease, Hyperlipidemia, Hypertension Denies:: Cancer, Diabetes Mellitus Type 1, MRSA *Have you ever received a pneumonia vaccine?: Yes *Have you received a flu vaccine this season?: Yes Other Medical History: Reports: Anemia, Liver Disease Other Surgeries: Yes: Cardiac Catheterization, Cholecystectomy, Colonoscopy, EGD, Hernia Repair Amputation: No Fractures: No - *Social History Last grade of school completed: 9th or 10th Smoking Status: Former smoker Tobacco Type: cigarettes # Packs/Day (cigarettes): 1 #Yrs smoked (if former smoker): 1 Alcohol Intake: never Alcohol Intake Frequency:: holidays/special occasions only Substance Use Type: denies use *Occupational Status:: disabled Housing: apartment Household Members: spouse, significant other *Travel in the last 8 weeks: None - Psychiatric History Pschychiatric History:: Reports:: Depression Family Hx:: Cancer, Coronary Artery Disease, Diabetes, Heart Attack, Hyperlipidemia, Hypertension, Stroke, Thyroid Disorder Review of Systems - Review of Systems Review of systems:: unable to obtain Meds Home Medications Medication Instructions Recorded Confirmed Type Atorvastatin Calcium [Lipitor 40mg 40 mg PO HS 12/12/18 01/14/20 History Tablet] hydrocodone 5 mg-acetaminophen 325 1 tab PO BID PRN #42 tab 03/11/19 01/14/20 Rx mg tablet Canagliflozin [Invokana] 100 mg PO DAILY 05/18/19 01/14/20 History Albuterol Sulfate [Proventil-HFA 2 puffs IH QIDP PRN 30 Days #1 puff 05/19/19 01/14/20 Rx 90mcg/puff Inh] aspirin 81 mg tablet,delayed 81 mg PO DAILY #90 tab 01/09/20 01/14/20 Rx release cholecalciferol (vitamin D3) 25 2,000 unit PO DAILY #90 cap 01/09/20 01/14/20 Rx mcg (1,000 unit) capsule furosemide 40 mg tablet 40 mg PO DAILY #30 tab 01/09/20 01/14/20 Rx irbesartan 150 mg tablet 150 mg PO DAILY #90 tab 01/09/20 01/14/20 Rx loratadine 10 mg tablet 10 mg PO DAILY #90 tab 01/09/20 01/14/20 Rx omeprazole 40 mg capsule,delayed 40 mg PO BID #180 cap 01/09/20 01/14/20 Rx release sertraline 50 mg tablet 50 mg PO DAILY #90 tab 01/09/20 01/14/20 Rx spironolactone 25 mg tablet 25 mg PO DAILY #90 tab 01/09/20 01/14/20 Rx trazodone 150 mg tablet 150 mg PO HS #90 tab 01/09/20 01/14/20 Rx Gabapentin 800 mg PO TID 01/14/20 01/14/20 History clonazePAM [Clonazepam] 0.5 mg PO BID 01/14/20 01/14/20 History levoFLOXacin [Levaquin 500mg 500 mg PO DAILY #7 tab 01/16/20 Rx tab] Allergies Allergy/AdvReac Type Severity Reaction Status Date / Time ketorolac [From TORADOL] Allergy Severe Anaphylaxis Verified 05/29/19 20:07 pregabalin [From Lyrica] Allergy Severe Anaphylaxis Verified 05/29/19 20:07 tramadol [TRAMADOL] Allergy Severe Anaphylaxis Verified 05/29/19 20:07 metoclopramide [From REGLAN] Allergy Unknown Anaphylaxis Verified 05/29/19 20:07 Sulfa (Sulfonamide Allergy Unknown Rash Verified 05/29/19 20:07 Antibiotics) [SULFA (SULFONAMIDE
--- NOTE | 2020-01-15 08:47 | HMH.PHAVTE ---
[facility] Pharmacy VTE Monitoring - Patient Demographics Admission date: 01/14/20 Report Date: 01/15/20 Time: 08:47 Allergies/Adverse Reactions: Patient Allergies ketorolac [From TORADOL] Allergy (Severe, Verified 05/29/19 20:07) Anaphylaxis pregabalin [From Lyrica] Allergy (Severe, Verified 05/29/19 20:07) Anaphylaxis tramadol [TRAMADOL] Allergy (Severe, Verified 05/29/19 20:07) Anaphylaxis metoclopramide [From REGLAN] Allergy (Unknown, Verified 05/29/19 20:07) Anaphylaxis Sulfa (Sulfonamide Antibiotics) [SULFA (SULFONAMIDE ANTIBIOTICS)] Allergy (Unknown, Verified 05/29/19 20:07) Rash Height: 1.7 m Weight: 163.322 kg Patient Problems: Current Active Problems Chest pain (Acute) Obesity (Acute) Diabetes mellitus type 2 in obese (Acute) - VTE Risk Labs: VTE Related Lab Results Hgb 11.6 g/dL (12.2-16.2) L 01/14/20 19:05 Hct 36.6 % (37.0-47.0) L 01/14/20 19:05 Plt Count 222 K/mm3 (142-424) 01/14/20 19:05 BUN 8 mg/dl (7-17) 01/14/20 19:05 Creatinine 0.70 mg/dl (0.52-1.04) 01/14/20 19:05 Estimated Creat Clear 99 mL/min (50-200) 01/14/20 19:05 Was VTE Risk Assessment Performed: Yes VTE Score: 7 VTE Risk Level: Moderate Risk - Prophylaxis VTE Prophylaxis Ordered?: Yes Types of VTE Prophylaxis: TEDS Knee High Location of Applied Device: Bilateral Lower Extremeties
[2020-01-15 08:50] LABS: Basophils % 0.4 % (0.1-2.0); Eosinophils # 0.2 K/mm3 (0.0-0.4); Eosinophils % 3.8 % (0.1-12.0); Hemoglobin 10.7 g/dL (12.2-16.2); Lymphocytes # 1.4 K/mm3 (0.7-4.5); Lymphocytes % 27.5 % (10-50); Mean Corpuscular HGB Conc 32.6 g/dL (31.8-35.4); Mean Corpuscular Volume 82.9 fl (81-99); Mean Platelet Volume 8.9 fl (7.4-10.4); Monocytes # 0.2 K/mm3 (0.1-1.0); Monocytes % 4.2 % (1.7-9.3); Neutrophils # 3.4 K/mm3 (1.8-7.8); Platelet Count 191 K/mm3 (142-424); Red Blood Count 3.98 M/mm3 (4.20-5.40); Red Cell Distribution Width 16.4 % (11.5-17.5); White Blood Count 5.3 K/mm3 (4.8-10.8)
--- NOTE | 2020-01-15 08:54 | CT_ITS ---
PROCEDURE: CT ANGIO CHEST CLINCIAL INDICATION: chest pain COMPARISON: No exams were available for comparison TECHNIQUE: IV Contrast: 70ML OPTIRAY 350 Axial images obtained with sagittal and coronal reformats. All CT scans at the facility use one or more dose reduction, viz: automated exposure control, ma/kV adjustment per patient size (including targeted exams where dose is matched to indication, i.e. head), or iterative reconstruction technique. FINDINGS: HEART AND MEDIASTINAL STRUCTURES: The thyroid gland is enlarged with left lobe larger than right with some minimal tracheal narrowing. No evidence of pulmonary emboli. No evidence of aortic aneurysm or dissection. No mediastinal or hilar mass or adenopathy. LUNGS AND PLEURAL SPACES: Calcified granuloma is present in the right upper lobe. Calcified granuloma is present in the left lower lobe. No lobar consolidation or collapse. No effusions or infiltrates. BONY STRUCTURES: No acute bony abnormalities apparent. UPPER ABDOMEN: Unremarkable. ADDITIONAL FINDINGS: Mildly prominent axillary lymph nodes are present bilaterally measuring up to 2.9 by 1.5 cm on the left IMPRESSION: 1. No evidence of pulmonary embolus or aortic aneurysm or dissection. 2. Thyromegaly. 3. Mildly prominent bilateral axillary lymph nodes Dictated by: Ernie Finn MD 01/15/2020 14:06 Ernie Finn MD in [place] 01/15/2020 14:06
--- NOTE | 2020-01-15 09:14 | CA_ITS ---
APPROVED REPORT Bilateral Lower Extremity Venous Study for DVT. 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 Indications Lower Extremity Pain: Bilateral Lower Extremity Edema: Bilateral Shortness of breath chest pain, SOA Risk Factors Obesity Medications Plavix Aspirin Vein Imaging CFV (R): Not Visualized SFJ (R): Not Visualized FEM (R): compressive, spontaneous, phasic, augmentation POP (R): compressive, spontaneous, phasic, augmentation DFV (R): compressive, spontaneous, phasic, augmentation PTV (R): compressive, spontaneous, phasic, augmentation GSV (R): compressive, spontaneous, phasic, augmentation Peroneals (R):compressive, spontaneous, phasic, augmentation GAS (R): compressive, spontaneous, phasic, augmentation CFV (L): Not Visualized SFJ (L): Not Visualized FEM (L): compressive, spontaneous, phasic, augmentation POP (L): compressive, spontaneous, phasic, augmentation DFV (L): compressive, spontaneous, phasic, augmentation PTV (L): compressive, spontaneous, phasic, augmentation GSV (L): compressive, spontaneous, phasic, augmentation Peroneals (L):compressive, spontaneous, phasic, augmentation GAS (L): compressive, spontaneous, phasic, augmentation Findings Bilateral lower extremity venous doppler negative for DVT/SVT. Vessels compressible Limited exam due to body habitus Conclusion Bilateral lower extremity venous doppler negative for DVT/SVT. Vessels compressible Limited exam due to body habitus Electronically signed by : Ernie Finn MD 01/15/2020 16:08:32
[2020-01-15 09:45] LABS: Anion Gap 11.5 mEq/L (5-15); Blood Urea Nitrogen 14 mg/dl (7-17); Calcium 8.3 mg/dl (8.4-10.2); Carbon Dioxide 27 mmol/L (22.0-30.0); Chloride 102 mmol/L (98-107); Chol/HDL Ratio 3.9 (1-3.5); Cholesterol 163 mg/dl (140-200); Creatinine Clearance Estimated 133 mL/min (50-200); Estimated Glomerular Filt Rate 133 ml/min (>60); GFR (African American) 161 ML/MIN (>60); Glucose 113 mg/dl (74-100); HDL Cholesterol 42 mg/dl (40-60); Potassium 4.5 mmoL/L (3.5-5.1); Sodium 136 mmol/L (136-145); Triglycerides 112 mg/dl (30-150); VLDL Cholesterol 22 mg/dL (0-40)
[2020-01-15 09:56] LABS: Direct LDL Cholesterol 105.34 mg/dL (100-129)
--- NOTE | 2020-01-15 10:07 | PC.NURSE ---
pt to rad for BLE venous dopplers via wheelchair.
--- NOTE | 2020-01-15 10:24 | HMH.PHAINT ---
Home medication reconciliation completed using discharge list from last admission at [place], list from home pharmacy and list from Dr Galdamez office. Pt is poor historian.
[2020-01-15 11:36] LABS: POC Glucose,Bedside 96 (70-110)
[2020-01-15 16:07] LABS: POC Glucose,Bedside 149 (70-110)
--- NOTE | 2020-01-15 17:19 | PC.NURSE ---
Pt has done well this shift. Has been up to chair since this morning. Has hx of seizures but refuses seizure pads to be placed on bed. Diabetic diet restarted @ dinner. Has tolerated it well. Had BLE venous dopplers and CT scan of chest today. Is NSR on tele. No other issues noted.
[2020-01-15 20:31] LABS: POC Glucose,Bedside 164 (70-110)
[2020-01-16] VITALS: PULSE 70
--- NOTE | 2020-01-16 03:18 | PC.NURSE ---
Addendum entered by Ingrid Leos RN 01/16/20 03:23: NSR on tele Original Note: Pt A&OX4. lungs CTA. pt denies SOA pt c/o of on going CP medicated per JUN. Pt ambulates to independently througout shift. pt has hx of seizures but refuses seizure pads to be placed on bed. pt has slept quietly in bed throughout shift VSS
[2020-01-16 04:00] VITALS: BP 145/67; PULSE 80; PULSE 85; RESP 18; TEMP 37; O2SAT 96
[2020-01-16 05:07] VITALS: BMI 56.7
[2020-01-16 05:12] LABS: POC Glucose,Bedside 139 (70-110)
[2020-01-16 06:38] LABS: Basophils % 0.4 % (0.1-2.0); Eosinophils # 0.3 K/mm3 (0.0-0.4); Eosinophils % 4.6 % (0.1-12.0); Hematocrit 31.3 % (37.0-47.0); Hemoglobin 10.5 g/dL (12.2-16.2); Lymphocytes # 1.5 K/mm3 (0.7-4.5); Lymphocytes % 22.9 % (10-50); Mean Corpuscular HGB Conc 33.5 g/dL (31.8-35.4); Mean Corpuscular Hemoglobin 27.5 pg (27.0-31.2); Mean Corpuscular Volume 82.2 fl (81-99); Mean Platelet Volume 9.3 fl (7.4-10.4); Monocytes # 0.2 K/mm3 (0.1-1.0); Monocytes % 3.2 % (1.7-9.3); Neutrophils # 4.5 K/mm3 (1.8-7.8); Neutrophils % 68.9 % (37.0-80.0); Platelet Count 191 K/mm3 (142-424); Red Blood Count 3.81 M/mm3 (4.20-5.40); Red Cell Distribution Width 16.3 % (11.5-17.5); White Blood Count 6.5 K/mm3 (4.8-10.8)
[2020-01-16 07:06] LABS: Chloride 103 mmol/L (98-107)
[2020-01-16 07:07] LABS: Potassium 5.4 mmoL/L (3.5-5.1); Sodium 134 mmol/L (136-145)
[2020-01-16 07:09] LABS: Blood Urea Nitrogen 13 mg/dl (7-17); Creatinine Clearance Estimated 111 mL/min (50-200); Estimated Glomerular Filt Rate 108 ml/min (>60); GFR (African American) 131 ML/MIN (>60)
[2020-01-16 07:10] LABS: Anion Gap 11.4 mEq/L (5-15); Calcium 8.3 mg/dl (8.4-10.2); Carbon Dioxide 25 mmol/L (22.0-30.0); Glucose 110 mg/dl (74-100)
[2020-01-16 08:00] VITALS: BP 114/64; PULSE 90; PULSE 94; RESP 20; TEMP 37.1; O2SAT 95
--- NOTE | 2020-01-16 08:43 | HMH.DCSUM ---
General - General Admission date:: 01/14/20 Discharge date: 01/16/20 HPI HPI: this pt was admitted with chest [id number]-old female with a history of diabetes, hypertension, obesity, presents the emergency department with chest pain. She states that she feels pressure-like heaviness on her chest. She took 3 nitro at home which gave her some relief but the pain came right back. She also states she has associated shortness of breath. No recent fevers or cough. No leg swelling or history of DVT or PE. Denies any back pain or any other associated symptoms at this time, no other concerns.pt admitted for [facility] Hospital Course: pt was seen by [facility] -4-year-old white female with known history of diabetes, hypertension, hyperlipidemia, Crohn's disease and moderate coronary artery disease by cardiac cath in 2018 presented to the emergency department for evaluation of chest pain. Patient states symptoms onset at rest while watching TV. She leads a fairly sedentary lifestyle. She denies any fever, chills but has had nausea and vomiting associated with the chest pain. Symptoms improved after 3 nitro but did not resolve at home and subsequently prompted her to come to the ER. Patient was given Nitropaste again with some mild improvement in symptoms but not resolution. She relates vomiting 3-4 times yesterday without any episodes of diarrhea. She complains of chest pain this morning with some left arm discomfort. There is no significant exacerbation with breathing or arm movement. Palpation of the chest is not reproducing her chest pain. Troponins overnight have returned normal x3. EKG is sinus rhythm with some chronic inferior lateral nonspecific ST-T abnormalities noted back to 2018 tracings. Chest x-ray shows no acute process. Cardiology consulted for evaluation and recommendations. 1. Coronary artery disease A. History of [facility], 02/06/2018, [facility], Dr. Bush, two vessel CAD with 50% mid LAD lesion and 30% proximal ramus lesion. RCA dominant. LVEF normal. B. [facility], 10/06/19, [facility], Dr. Sylvain Light, mild CAD of LAD (less than 10%) otherwise normal coronaries. EF 65%. 2. History of Crohn's disease, diagnosed 2011 3. Diabetes mellitus, type II 4. Family history of coronary artery disease in her father who was a smoker 5. History of CVA with left side affected 6. Obesity 7. Hypertension A. Echo, 04/2019,1. Mild biatrial enlargement, normal left ventricular size, mild concentric left ventricular hypertrophy, visually estimated ejection fraction 55% with no regional wall motion abnormality, grade 1 diastolic dysfunction seen with tissue Doppler evidence of raise left atrial pressure. Endocardial surfaces are poorly visualized. 2. Mildly enlarged right ventricle with normal contractility. 3. Mild mitral and tricuspid regurgitation. 4. No significant pericardial effusion noted. 8. Hyperlipidemia A. Statin therapy 9. History of pancreatitis TA of chest negative for PE or aneurysm or dissection. LE venous doppler official results pending but preliminary is negative for DVT. Will stop lovenox. No further cardiac workup. Recommend workup for non-cardiac chest pain. Please call if needed. will do eval as op - pt also with uti e coli -and will be placed on abx - was oob and lexie diet at time of d/c Objective Vital signs: Temp Pulse Resp BP Pulse Ox 98.7 F 90 20 114/64 95 01/16/20 08:00 01/16/20 08:00 01/16/20 08:00 01/16/20 08:00 01/16/20 08:00 no acute distress, obese - *Routine HEENT Exam Head: Present: normocephalic Eye: Present: EOMI, PERRL ENT: Present: mucous membranes dry - *Routine Neck Exam Present: supple - *Routine Respiratory Exam Absent: respiratory distress - *Routine Cardiovascular Exam Present: RRR - *Routine Abdominal Exam Present: soft - *Routine Extremities Exam Absent: calf tenderness - *
--- NOTE | 2020-01-16 09:13 | PC.NURSE ---
pt has requested rx for pain meds before she does home. She has discharge orders in. Called Dr. Gates's office and spoke to Yoly. Informed her of pt's request. She will call me back after she speaks to Dr. Gates.
== END 2020-01-16 10:32 | disposition home or self-care (01) ==
LOC: ER 20:13 → 2ND 20:44
PROVIDERS: Nurse Practitioner Family; Admitting Provider Emergency Medicine; Emergency Provider Emergency Medicine; PCP Family Medicine; Visit Provider Family Medicine
DX: R07.9 Chest pain, unspecified (principal); I25.10 Atherosclerotic heart disease of native coronary artery without angina pectoris; E11.9 Type 2 diabetes mellitus without complications; E66.01 Morbid (severe) obesity due to excess calories; Z68.43 Body mass index [BMI] 50.0-59.9, adult; N39.0 Urinary tract infection, site not specified; E83.51 Hypocalcemia; E78.5 Hyperlipidemia, unspecified; I11.0 Hypertensive heart disease with heart failure; I50.9 Heart failure, unspecified; Z79.899 Other long term (current) drug therapy; Z88.1 Allergy status to other antibiotic agents; Z88.8 Allergy status to other drugs, medicaments and biological substances; Z88.2 Allergy status to sulfonamides
CPT/HCPCS: 36415; 71045; 71275; 80048; 80061; 80305; 81001; 82962; 84484; 85025; 86328; 87086; 87088; 87186; 93005; 93970; 96374; 96375; 99285; G0378; J2405; Q9967

== ENCOUNTER 2021-03-13 15:29 | Emergency (ER) | payer MEDICARE, MEDICAID, SELFPAY ==
[2021-03-13 15:30] VITALS: BP 252/118; PULSE 91; RESP 18; TEMP 36.6; O2SAT 96; BMI 61.8
--- NOTE | 2021-03-13 15:57 | CT_ITS ---
PROCEDURE INFORMATION: Exam: CT Abdomen And Pelvis Without Contrast Exam date and time: 03/13/2021 3:57 PM Age: 45 years old Clinical indication: Abdominal pain; Generalized. History of Crohn's disease. TECHNIQUE: Imaging protocol: Computed tomography of the abdomen and pelvis without contrast. Radiation optimization: All CT scans at this facility use at least one of these dose optimization techniques: automated exposure control; mA and/or kV adjustment per patient size (includes targeted exams where dose is matched to clinical indication); or iterative reconstruction. COMPARISON: CT ABDOMEN PELVIS W CON 12/12/2018 12:30 PM FINDINGS: Lungs: No acute findings in the visualized lower lungs. No consolidation. Liver: Prominent diffuse fatty change in the liver. Borderline hepatomegaly. No discrete mass seen on this nonenhanced exam. Gallbladder and bile ducts: Cholecystectomy clips. Biliary tree is within normal limits. No calcified stones. Pancreas: Fatty infiltrative changes of the pancreas. No ductal dilatation. No acute findings. Spleen: Multiple calcified splenic granulomas. Slight splenomegaly 13.3 cm long axis sagittal image 102. Adrenal glands: The adrenal glands are normal. Kidneys and ureters: The kidneys are normal. The ureters are normal. Stomach and bowel: The stomach is normal. There is no evidence of intestinal perforation or obstruction. No significantly dilated loops or mucosal thickening. Appendix: A normal appendix is identified. Intraperitoneal space: There is no free intraperitoneal air. There is no significant free intraperitoneal fluid. No intraperitoneal abscess collection. Vasculature: There is no aortic aneurysm. No portal venous gas. Lymph nodes: Calcified mediastinal and hilar lymph nodes noted in the chest. No significantly enlarged intra-abdominal lymph nodes by short axis criteria. A few slightly prominent inguinal nodes, a common finding, likely reactive. Urinary bladder: The bladder is normal. Reproductive: No acute reproductive findings. Unremarkable for age. Bones/joints: There are spinal degenerative changes, with multilevel disc narrrowing, spondylosis, facet arthropathy. No acute fracture or high-grade listhesis. Bilateral sacroiliitis. Minimal hip degenerative changes. Soft tissues: Rectus diastasis. No significant hernia. Soft tissue edema in the posterior lower back. No organized fluid collection or mass, as visualized. Soft tissues are partially clipped off the field of view due to large body habitus. IMPRESSION: 1. No acute findings. 2. Fatty liver, mild splenomegaly. 3. There is no evidence of intestinal perforation or obstruction. No suspicious findings of acute colitis/enteritis 4. Additional nonemergency and chronic findings as above.
--- NOTE | 2021-03-13 16:33 | HMH.EDNVD ---
ED Disposition Clinical Impression: Abdominal pain Qualifiers: Abdominal location: generalized Qualified Code(s): R10.84 - Generalized abdominal pain Disposition: Left Against Medical Advice Condition on Discharge: Fair Instructions: DI for Nausea -- Adult Referrals: Kimani Powell APRN [Primary Care Provider] - - Critical Care Critical Care Time: No Attestation: On 03/13/21, the high probability of a clinically significant, sudden or life threatening deterioration of the following system(s) required my full and direct attention, intervention and personal management. The time I documented below is in addition to time spent performing reported procedures but includes the following listed in this critical care notation. Medical Decision Making - Medical Records Medical records reviewed: Yes: I reviewed the patient's medical records. - Fredi Inquiry Pt receiving controlled substance: No Vital Signs: 03/13/21 15:30 Temperature 97.8 F Temperature Source Oral Pulse Rate [Left Radial] 91 H Respiratory Rate 18 Blood Pressure [Right Arm] 252/118 H Blood Pressure Mean [Right Arm] 162 Blood Pressure Source [Right Arm] Automatic Cuff Blood Pressure Position [Right Arm] Sitting 02 Sat by Pulse Oximetry 96 Oxygen Delivery Method Room Air Orders (Tests/Meds): ED MEDICATIONS Discontinued Medications Generic Name Dose Route Start Last Admin Trade Name Freq PRN Reason Stop Dose Admin Promethazine HCl 25 mg 03/13/21 15:57 03/13/21 16:31 Promethazine Hcl 25mg/Ml 1ml Vial IV 03/13/21 15:58 25 mg ONCE ONE Administration Sodium Chloride 25 ml 03/13/21 15:57 03/13/21 16:31 Sodium Chloride 0.9% 25ml Bag IV 03/13/21 15:58 25 ml ONCE ONE Administration ORDERS Category Date Time Status CT abdomen pelvis wo con Stat Cat Scan 03/13/21 15:57 Taken Complete Blood Count Auto Diff Stat Lab 03/13/21 16:45 Received Comprehensive Metabolic Panel Stat Lab 03/13/21 16:45 Received Lipase Stat Lab 03/13/21 16:45 Received - Reevaluation(s) Time: 16:55 Reevaluation #1: On further evaluation, the patient states that she did not want to wait any longer on any of her results. I did explain to patient that I did not have any of her blood work or her CT scan back. Patient states that she is not waiting and she wants to be discharged immediately. I did explain to the patient that leaving prior to completing her full medical treatment could result in serious comorbidities including . Patient is alert and has full decision-making ability. She is leaving AGAINST MEDICAL ADVICE without completing her medical treatment. Medical Decision Narrative: 45-year-old female presenting with some nausea and vomiting. Patient is some mild tenderness on epigastric. There is no acute abdomen. Patient be treated symptomatically. Work-up initiated. Nausea/Vomiting/Diarrhea HPI - General Chief complaint: Nausea/Vomiting/Diarrhea Stated complaint: vomiting Time Seen by Provider: 03/13/21 15:35 Mode of Arrival: EMS Limitations: No Limitations Description of Symptoms (Recalled from ER Triage Doc. by RN): c/o vomiting for 4 days and upper quad pain. - History of Present Illness HPI Narrative: Is a 45-year-old female presenting with some nausea and vomiting as well as some upper epigastric pain for the last 4 days. Patient has had this numerous times before in the past. Patient states that she has been able to keep anything down secondary to the nausea and vomiting. Pain is dull in nature. Feels like a burning sensation located in the epigastric region. It is nonradiating. She does not have any associated diarrhea. Denies any fevers or chills. No headache or change in vision. No focal weakness. - Related Data Home Medications Medication Instructions Recorded Confirmed Atorvastatin Calcium [Lipitor 40mg 40 mg PO HS 12/12/18 01/14/20 Tablet*] Canagliflozin [Invokana] 100 mg PO DAILY
--- NOTE | 2021-03-13 16:34 | PC.NURSE ---
Pt complains of pain and has asked twice for pain medicine. MD aware of request and he wants to give time for other meds to work.
[2021-03-13 16:52] LABS: Basophils # 0.1 K/mm3 (0-0.2); Basophils % 0.5 % (0.1-2.0); Eosinophils # 0.1 K/mm3 (0.0-0.4); Eosinophils % 1.2 % (0.1-12.0); Hematocrit 42.8 % (37.0-47.0); Hemoglobin 13.8 g/dL (12.2-16.2); Lymphocytes # 1.4 K/mm3 (0.7-4.5); Lymphocytes % 13.4 % (10-50); Mean Corpuscular HGB Conc 32.3 g/dL (31.8-35.4); Mean Corpuscular Hemoglobin 27.3 pg (27.0-31.2); Mean Corpuscular Volume 84.4 fl (81-99); Mean Platelet Volume 8.4 fl (7.4-10.4); Monocytes # 0.4 K/mm3 (0.1-1.0); Monocytes % 3.5 % (1.7-9.3); Neutrophils # 8.5 K/mm3 (1.8-7.8); Neutrophils % 81.4 % (37.0-80.0); Platelet Count 307 K/mm3 (142-424); Red Blood Count 5.07 M/mm3 (4.20-5.40); Red Cell Distribution Width 16.4 % (11.5-17.5); White Blood Count 10.5 K/mm3 (4.8-10.8)
--- NOTE | 2021-03-13 16:58 | PC.NURSE ---
Pt states that she wants some pain medicine and if she dont get any she is leaving, offered her tylenol until her labs came back and she stated she wanted to leave. aware
[2021-03-13 17:00] VITALS: BP 198/96; PULSE 90; RESP 20; TEMP 36.6; O2SAT 98
[2021-03-13 17:09] LABS: Chloride 102 mmol/L (98-107); Potassium 3.5 mmoL/L (3.5-5.1); Sodium 137 mmol/L (136-145)
[2021-03-13 17:12] LABS: Alanine Aminotransferase 41 U/L (12-78); Albumin Level 4.2 g/dl (3.5-5.0); Albumin/Globulin Ratio 1.2 (1.1-1.8); Alkaline Phosphatase 95 U/L (38-126); Anion Gap 12.5 mEq/L (5-15); Aspartate Amino Transferase 51 U/L (14-36); Bilirubin,Total 0.7 mg/dl (0.2-1.3); Blood Urea Nitrogen 9 mg/dl (7-17); Calcium 9.4 mg/dl (8.4-10.2); Carbon Dioxide 26 mmol/L (22.0-30.0); Creatinine Clearance Estimated 137 mL/min (50-200); Estimated Glomerular Filt Rate 133 ml/min (>60); GFR (African American) 161 ML/MIN (>60); Globulin 3.6 g/dL (1.3-3.2); Glucose 146 mg/dl (74-100); Lipase 257 U/L (23-300); Total Protein,Serum 7.8 g/dl (6.3-8.2)
== END 2021-03-13 17:02 | disposition left against medical advice (07) ==
PROVIDERS: Emergency Provider Emergency Medicine; PCP Nurse Practitioner Family
DX: R10.84 Generalized abdominal pain (principal); E11.9 Type 2 diabetes mellitus without complications; E78.5 Hyperlipidemia, unspecified; I10 Essential (primary) hypertension; Z79.899 Other long term (current) drug therapy; Z87.891 Personal history of nicotine dependence
CPT/HCPCS: 36415; 74176; 80053; 83690; 85025; 96374; 99282